=== PATIENT | female | born 1990 | race African-American/Black ===

== ENCOUNTER → 2023-04-01 08:24 | Outpatient (BNVA) | payer MEDICAID, SELFPAY | PROVIDERS: Visit Provider Physician Assistant Surgical ==

== ENCOUNTER 2023-04-06 08:02 | Outpatient (AMB) | payer OTHER, SELFPAY ==
[2023-04-06 08:07] VITALS: BMI 35.1
--- NOTE | 2023-04-06 08:07 | A.OFFVIS_ITS ---
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* HPI Details Start time: 8.00am, End time: 9.10am ?I spent 60 minutes speaking with the patient on the phone plus an additional 10 minutes reviewing and updating records for a total of 70 minutes HPI Comments History of Present Illness Details Previous weight loss efforts: RD, self diets Wakes up: 7am, Sleeps: 11pm Breakfast: 9am (soup, eggs, bread) Lunch: 1pm (meat, rice, fish, pasta) Dinner: 7pm (same as lunch) Snacks: 11am (fruits like bananas) Exercise: none Fluids: Coffee 3 cups/day (sugar), tea/soda/juice/ETOH: none PFSH Medical History (Updated 04/06/23 @ 08:16 by Santy Soto MD) Hyperlipidemia Hypertension Non-insulin dependent type 2 diabetes mellitus Obesity Surgical History (Updated 04/01/23 @ 08:45 by Lila Anderson CMA) No history of previous surgery Family History (Updated 04/01/23 @ 08:46 by Lila Anderson CMA) Mother Diabetes Hypertension High cholesterol Daughter No problems noted. Daughter No problems noted. Social History (Updated 04/01/23 @ 08:45 by Lila Anderson CMA) Alcohol intake: current Alcohol intake frequency: holidays/special occasions only Patient Tobacco Use Status: Never used Tobacco Assessment & Plan Assessment & Plan (1) Obesity: Code(s): E66.9 - Obesity, unspecified Qualifiers: Obesity type: due to excess calories Obesity classification: adult class 2 (BMI 35 - 39.9) Serious obesity comorbidity presence: with serious comorbidity Body mass index: BMI 35.0-35.9 Qualified Code(s): E66.01 - Morbid (severe) obesity due to excess calories; Z68.35 - Body mass index [BMI] 35.0- 35.9, adult Plan: 1.? Plan for lap sleeve gastrectomy. If diaphragmatic or ventral hernias are present at time of surgery, these will be repaired laparoscopically as well. Risks and complications were discussed in detail including possible conversion to an open procedure, anastomotic leak, bleeding requiring transfusion, small bowel obstruction, , DVT and pulmonary embolism, cardiac, or pulmonary complications, as camera repair technician complications such as anastomotic ulcer, insufficient weight loss and vitamin deficiencies. I emphasized the importance of close follow-up, adherence to instructions and good communication. 2. Nutritional counseling. Start with 2 plant-based organic Pure protein (buy at [employer], [employer], [employer], [facility]) shakes (1/2 scoop in 8oz low fat unsweetened almond milk each) at 8am-10am and 11am-1pm, 1 protein bar (Zone Perfect protein bars, buy at [employer], ?[employer], [facility], or [employer]) at 2pm-4pm, 1/2 bar at 5-6pm, dinner at 7pm (10 forks of protein and 10 forks of salad/vegetables) , 1/2 bar at 9-10pm and one more protein bar after dinner at 11pm-1am. 2. Nutritional counseling. Start with 2 CELEBRATE REBUILD protein (buy at hospital[facility]) shakes (HALF scoop EACH in 8oz low fat unsweetened almond milk each) at 8am-10am and 11am-1pm, 1 protein bar (CELEBRATE protein bars, buy at hospital's [facility]) at 2pm-4pm, dinner at 5pm (8 forks of protein and 8 forks of salad/vegetables) AND one more protein bar after dinner at 7pm-9pm AND another HALF protein bar at 10pm-11pm So you do 2 protein shakes, 2.5 protein bars and one meal per day. Meal to include lean meat (beef, fish, pork, turkey, chicken), or australian yogurt, or egg whites, or beans with a salad with olive oil and fruits (berries, pears, apples, kiwi). Avoid salt, breads, potatoes, rice, pasta, desserts. 3. Each shake would be drunk slowly, like coffee in a period of 2 hours. May add your coffee into your shakes, if flavors match. 4. Cut each bar in 4 pieces and eat each piece in 30min ?to make each bar last 2 hours. 5. I emphasized the importance of measuring accurately the food portion and measure it when serving the food in plate 6. The meal portions include 8 full-size forks of meat and 8 full-size forks of salad. You always eat the meat portion but you can replace up to 4 forks for salad/vegetables with rice, potatoes or pasta, or a fruit ?if you like. The less you do it the better weight loss will be. 7. One full-size fork is what it can be scooped on the fork without falling aside and not what can be bit with the fork. Use regular forks like those you find in a typical restaurant. 8.? Please send me weight measurements as soon as possible and then once a week. Always include your diet and exercise plan. 9. Start walking outside daily, tracking calories with a goal of 300 calories per day, daily. Goal is to burn 2000 calories per week on exercise, which means either 300 calories daily, or 400 calories 5 days per week, or 500 calories 4 days per week, or 650 calories 3 days per week. 10. The best choice would be to purchase a stationary bike, elliptical or treadmill at home that can track calories. Let me know if you do so I can give you an exercise plan. 11.?It is important of avoiding and for at least 18 months postoperatively and has been discussed at the infosession. 12. Goal is to lose at least 1.5-2lbs per week 13. Goal to lose 10% of your weight before surgery, which is about 20lbs. Ultimate weight goal: 178lbs before surgery 14. Please follow the diet plan exactly without any change. If you don't like something about the plan or you feel hungry you need to communicate with me so I can help you revise the plan. You should not change the plan yourself. Orders: Orders Insulin Today E11.9 - Type 2 diabetes mellitus without complications, E66.9 - Obesity, unspecified, E78.5 - Hyperlipidemia, unspecified, I10 - Essential (primary) hypertension, Z68.35 - Body mass index [BMI] 35.0-35.9, adult Vitamin B12 and Folate Today E11.9 - Type 2 diabetes mellitus without complications, E66.9 - Obesity, unspecified, E78.5 - Hyperlipidemia, unspecified, I10 - Essential (primary) hypertension, Z68.35 - Body mass index [BMI] 35.0-35.9, adult Ferritin Today E11.9 - Type 2 diabetes mellitus without complications, E66.9 - Obesity, unspecified, E78.5 - Hyperlipidemia, unspecified, I10 - Essential (primary) hypertension, Z68.35 - Body mass index [BMI] 35.0-35.9, adult US abdomen comp w elastography Today E11.9 - Type 2 diabetes mellitus without complications, E66.9 - Obesity, unspecified, E78.5 - Hyperlipidemia, unspecified, I10 - Essential (primary) hypertension, Z68.35 - Body mass index [BMI] 35.0-35.9, adult XR chest 2V Today E11.9 - Type 2 diabetes mellitus without complications, E66.9 - Obesity, unspecified, E78.5 - Hyperlipidemia, unspecified, I10 - Essential (primary) hypertension, Z68.35 - Body mass index [BMI] 35.0-35.9, adult FL upper GI w air Today E11.9 - Type 2 diabetes mellitus without complications, E66.9 - Obesity, unspecified, E78.5 - Hyperlipidemia, unspecified, I10 - Essential (primary) hypertension, Z68.35 - Body mass index [BMI] 35.0-35.9, adult Hemoglobin A1c Today E11.9 - Type 2 diabetes mellitus without complications, E66.9 - Obesity, unspecified, E78.5 - Hyperlipidemia, unspecified, I10 - Essential (primary) hypertension, Z68.35 - Body mass index [BMI] 35.0-35.9, adult H Pylori Breath Test Today E11.9 - Type 2 diabetes mellitus without complications, E66.9 - Obesity, unspecified, E78.5 - Hyperlipidemia, unspecified, I10 - Essential (primary) hypertension, Z68.35 - Body mass index [BMI] 35.0-35.9, adult Complete Blood Count Auto Diff Today E11.9 - Type 2 diabetes mellitus without complications, E66.9 - Obesity, unspecified, E78.5 - Hyperlipidemia, unspecified, I10 - Essential (primary) hypertension, Z68.35 - Body mass index [BMI] 35.0-35.9, adult Lipid Panel Today E11.9 - Type 2 diabetes mellitus without complications, E66.9 - Obesity, unspecified, E78.5 - Hyperlipidemia, unspecified, I10 - Essential (primary) hypertension, Z68.35 - Body mass index [BMI] 35.0-35.9, adult IRON PROFILE Today E11.9 - Type 2 diabetes mellitus without complications, E66.9 - Obesity, unspecified, E78.5 - Hyperlipidemia, unspecified, I10 - Essential (primary) hypertension, Z68.35 - Body mass index [BMI] 35.0-35.9, adult Comprehensive Met. Panel Today E11.9 - Type 2 diabetes mellitus without complications, E66.9 - Obesity, unspecified, E78.5 - Hyperlipidemia, unspecified, I10 - Essential (primary) hypertension, Z68.35 - Body mass index [BMI] 35.0-35.9, adult Zinc Today E11.9 - Type 2 diabetes mellitus without complications, E66.9 - Obesity, unspecified, E78.5 - Hyperlipidemia, unspecified, I10 - Essential (primary) hypertension, Z68.35 - Body mass index [BMI] 35.0-35.9, adult C Reactive Protein Today E11.9 - Type 2 diabetes mellitus without complications, E66.9 - Obesity, unspecified, E78.5 - Hyperlipidemia, unspecified, I10 - Essential (primary) hypertension, Z68.35 - Body mass index [BMI] 35.0-35.9, adult Vitamin B1 Today E11.9 - Type 2 diabetes mellitus without complications, E66.9 - Obesity, unspecified, E78.5 - Hyperlipidemia, unspecified, I10 - Essential (primary) hypertension, Z68.35 - Body mass index [BMI] 35.0-35.9, adult Vitamin A Today E11.9 - Type 2 diabetes mellitus without complications, E66.9 - Obesity, unspecified, E78.5 - Hyperlipidemia, unspecified, I10 - Essential (primary) hypertension, Z68.35 - Body mass index [BMI] 35.0-35.9, adult TSH reflex Free T4 Today E11.9 - Type 2 diabetes mellitus without complications, E66.9 - Obesity, unspecified, E78.5 - Hyperlipidemia, unspecified, I10 - Essential (primary) hypertension, Z68.35 - Body mass index [BMI] 35.0-35.9, adult Vitamin D 25-OH Total Today E11.9 - Type 2 diabetes mellitus without complications, E66.9 - Obesity, unspecified, E78.5 - Hyperlipidemia, unspecified, I10 - Essential (primary) hypertension, Z68.35 - Body mass index [BMI] 35.0-35.9, adult ECG 12 lead EKG Today E11.9 - Type 2 diabetes mellitus without complications, E66.9 - Obesity, unspecified, E78.5 - Hyperlipidemia, unspecified, I10 - Essential (primary) hypertension, Z68.35 - Body mass index [BMI] 35.0-35.9, adult Referrals Behavioral Health Referral E11.9 - Type 2 diabetes mellitus without complications, E66.9 - Obesity, unspecified, E78.5 - Hyperlipidemia, unspecified, I10 - Essential (primary) hypertension, Z68.35 - Body mass index [BMI] 35.0-35.9, adult Nutrition/Dietitian Referral E11.9 - Type 2 diabetes mellitus without complications, E66.9 - Obesity, unspecified, E78.5 - Hyperlipidemia, unspecified, I10 - Essential (primary) hypertension, Z68.35 - Body mass index [BMI] 35.0-35.9, adult Telehealth Telehealth Location of provider rendering services: practice address Location of patient: address on file Patient Identification confirmed using: Name, : Yes Telehealth method: voice only Patient verbally consented to treatment: Yes Patient verbally consented to billing insurance company: Yes Patient informed of any privacy concerns related to visit: Yes Minutes spent on Phone/Video with Pt.: 70 Coding Level of Care Code Tele New Pt Level 5 (91682) Diagnoses Class 2 severe obesity due to excess calories with serious comorbidity and body mass index (BMI) of 35.0 to 35.9 in adult E66.01; Z68.35 Obesity type: due to excess calories Obesity classification: adult class 2 (BMI 35 - 39.9) Serious obesity comorbidity presence: with serious comorbidity Body mass index: BMI 35.0-35.9 Time Spent (min) 70 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
== END 2023-04-06 09:11 | disposition home or self-care (01) ==
LOC: HO.HBS 08:02
PROVIDERS: Visit Provider Surgery
DX: E66.01 Morbid (severe) obesity due to excess calories (principal); Z68.35 Body mass index [BMI] 35.0-35.9, adult
CPT/HCPCS: 99205

== ENCOUNTER → 2023-04-06 08:02 | Outpatient (BNVA) | payer OTHER, SELFPAY | PROVIDERS: Visit Provider Surgery ==

== ENCOUNTER 2023-04-07 08:30 | Outpatient (REF) | payer OTHER, SELFPAY ==
--- NOTE | ~2023-04-07 | XR_ITS ---
EXAMINATION: XR CHEST CLINICAL INFORMATION: Obesity, unspecified COMPARISON: None available. TECHNIQUE: 2 views of the chest were obtained. FINDINGS: No significant abnormality is noted involving the lungs, mediastinum, bony thorax or soft tissues. There is mild enlargement of cardiac silhouette. XR/XR chest 2V IMPRESSION: 1. No acute disease. 2. Mild enlargement of the cardiac silhouette.
--- NOTE | 2023-04-07 08:40 | ECG_ITS ---
Test Reason : OBESITY Blood Pressure : / mmHG Vent. Rate : 081 BPM Atrial Rate : 081 BPM P-R Int : 158 ms QRS Dur : 086 ms QT Int : 362 ms P-R-T Axes : 027 066 059 degrees QTc Int : 420 ms Normal sinus rhythm Nonspecific T wave abnormality Abnormal ECG No previous ECGs available Referred By: Santy Soto Electronically Signed By:GISELLE ROWLAND
[2023-04-07 08:54] LABS: MANUAL DIFF FLAG NO
[2023-04-07 09:46] LABS: Basophils Percent Auto 0.4 % (0-2); Eosinophils Percent Auto 0.8 % (0-4); Hematocrit 37.9 % (37.0-47.0); Hemoglobin 12.1 g/dl (12.0-16.0); Imm Gran Abs Auto 0.01 X10*3/uL (0.00-0.03); Imm Gran Pct Auto 0.2 % (0.0-0.4); Lymphocytes Percent Auto 39.1 % (20-40); Mean Corpuscular HGB Conc 31.9 g/dl (31.0-35.0); Mean Corpuscular Hemoglobin 22.3 pg (27.0-33.0); Mean Corpuscular Volume 69.8 fL (80.0-98.0); Mean Platelet Volume 9.9 fL (9.4-12.3); Monocytes Absolute Auto 0.4 X10*3/uL (0.1-1.2); Monocytes Percent Auto 6.9 % (2-11); Neutrophils Absolute Auto 2.7 x10*3/uL (2.0-8.3); Neutrophils Percent Auto 52.6 % (45-73); Platelet Count 316 X10*3/uL (160-400); Red Blood Count 5.43 X10*6/uL (4.20-5.50); White Blood Count 5.1 X10*3/uL (4.8-10.8)
[2023-04-07 09:53] LABS: Estimated Average Glucose 137 mg/dL; Hemoglobin A1c % 6.4 % (<6.0)
[2023-04-07 10:30] LABS: Alanine Aminotransferase 63 U/L (0-31); Albumin Level 4.4 g/dL (3.5-5.0); Alkaline Phosphatase 82 U/L (39-117); Anion Gap 10 (12-20); Aspartate Amino Transferase 34 U/L (5-31); Bilirubin Total 0.3 mg/dL (0.0-1.0); Blood Urea Nitrogen 10 mg/dL (9-16); C Reactive Protein 0.63 mg/dL (< or = 0.50); Calcium 9.5 mg/dL (8.4-10.2); Carbon Dioxide 26 mmol/L (22-29); Chloride 106 mmol/L (96-108); Cholesterol 186 mg/dL (<200); Estimated Glomerular Filt Rate > 60; Glucose Random 120 mg/dL (60-115); HDL Cholesterol 45 mg/dL (>40); Iron 64 mcg/dL (30-160); LDL Cholesterol Calculated 104 mg/dL (<100); Percent Iron Saturation 20 % (15-50); Potassium 4.3 mmol/L (3.3-5.1); Sodium 138 mmol/L (135-145); Total Iron Binding Capacity 326 mcg/dL (228-428); Total Protein 8.1 g/dL (6.5-8.0); Triglycerides 185 mg/dL (<150); Unsaturated Iron Binding 262 ug/dL
[2023-04-07 10:47] LABS: Ferritin 72 ng/mL (10-122); Insulin 13 uU/mL (2-29); TSH reflex Free T4 1.01 uIU/mL (0.32-4.0)
[2023-04-07 11:17] LABS: Folate 11.1 ng/mL (> or = 4.0); Vitamin B12 484 pg/mL (200-900)
[2023-04-09 12:33] LABS: Zinc 87 mcg/dL (60-130)
[2023-04-11 01:53] LABS: Vitamin A 50 mcg/dL (38-98)
[2023-04-12 14:54] LABS: Vitamin B1 9 nmol/L (8-30)
== END 2023-04-07 08:31 | disposition home or self-care (01) ==
LOC: HO.XRAY 08:30
PROVIDERS: Visit Provider Surgery
DX: E66.9 Obesity, unspecified (principal); Z68.35 Body mass index [BMI] 35.0-35.9, adult; E11.9 Type 2 diabetes mellitus without complications; E78.5 Hyperlipidemia, unspecified; I10 Essential (primary) hypertension
CPT/HCPCS: 36415; 71046; 80053; 80061; 82306; 82607; 82728; 82746; 83036; 83525; 83540; 84425; 84443; 84590; 84630; 85025; 86140; 93005

== ENCOUNTER → 2023-04-07 08:40 | Outpatient (BNV) | payer OTHER, SELFPAY | PROVIDERS: Visit Provider Internal Medicine | DX: E66.9 Obesity, unspecified (principal); R94.31 Abnormal electrocardiogram [ECG] [EKG] | CPT/HCPCS: 93010 ==

== ENCOUNTER → 2023-04-20 09:35 | Outpatient (REF) | payer OTHER, SELFPAY ==
--- NOTE | 2023-04-20 09:38 | CA_ITS ---
Acquisition Time: 2023-04-20 09:45:35 Total Exercise Time: 00:07:05 Test Indications: Abnormal ECG Medications: METFORMIN Protocol: RENEE Max HR: 162 BPM 87% of Pred: 186 BPM Max BP: 142/070 mmHG Max Work Load: 8.6 METS Exercise stress test exercise 7 min 5 sec of Renee protocol achieving 87% MPHR 8.4 METs, without anginal symptoms, without arrhythmias, with normotensive response to exercise, without EKG chnages. Test reviewed with Dr. Jones Referred By: Santy Soto Overread By: Charo Mcghee
== END ==
LOC: HO.CARD 09:35
PROVIDERS: Visit Provider Surgery
DX: R94.31 Abnormal electrocardiogram [ECG] [EKG] (principal); I51.7 Cardiomegaly
CPT/HCPCS: 93017

== ENCOUNTER → 2023-04-20 09:38 | Outpatient (BNV) | payer OTHER, SELFPAY | PROVIDERS: Visit Provider Nurse Practitioner | DX: R94.31 Abnormal electrocardiogram [ECG] [EKG] (principal); I51.7 Cardiomegaly | CPT/HCPCS: 93016; 93018 ==

== ENCOUNTER 2023-04-21 14:22 | Outpatient (AMB) | payer OTHER, SELFPAY ==
--- NOTE | 2023-04-21 14:15 | A.OFFVIS_ITS ---
Intake Intake Visit Reasons: (TV) Initial Nutrition [facility] Plywood Layup Line Core Feeder Required: Yes Plywood Layup Line Core Feeder Name: [email or web address] [id number] Information Interpreted: non-clinical & clinical Allergies No Known Allergies Allergy (Verified 04/06/23 08:11) HPI Nutrition Presentation Reason for consult elevated BMI Diet Assmnt Details pt states she is following Dr. Soto nutrition plan, no concerns or questions today. She reports she likes the plan. Dinner meals has chicken or shrimp or fish with vegetables . She likes this. [facility] online classes: none Dietary counseling reduction Diagnosis Nutrition problem #1 overweight/obesity As related to (etiology) #1 excess energy intake and physical inactivity As evidenced by (sign/symptom) #1 high BMI Monitoring/Goals Nutrition problem monitoring total energy intake, level of knowledge/skill, total PRO intake, total CHO intake and weight Most Recent Diabetes Results: Cholesterol 186 mg/dL (<200) 04/07/23 HDL Cholesterol 45 mg/dL (>40) 04/07/23 Triglycerides 185 mg/dL (<150) H 04/07/23 Creatinine 0.65 mg/dL (0.5-1.4) 04/07/23 Blood Urea Nitrogen 10 mg/dL (9-16) 04/07/23 Sodium 138 mmol/L (135-145) 04/07/23 Potassium 4.3 mmol/L (3.3-5.1) 04/07/23 Chloride 106 mmol/L (96-108) 04/07/23 Carbon Dioxide 26 mmol/L (22-29) 04/07/23 Calcium 9.5 mg/dL (8.4-10.2) 04/07/23 AST 34 U/L (5-31) H 04/07/23 ALT 63 U/L (0-31) H 04/07/23 Total Protein 8.1 g/dL (6.5-8.0) H 04/07/23 Albumin 4.4 g/dL (3.5-5.0) 04/07/23 [facility] Medical History (Updated 04/11/23 @ 19:58 by Santy Soto MD) Cardiomegaly Hyperlipidemia Hypertension Non-insulin dependent type 2 diabetes mellitus Obesity Surgical History (Updated 04/01/23 @ 08:45 by Lila Anderson CMA) No history of previous surgery Family History (Updated 04/01/23 @ 08:46 by Lila Anderson CMA) Mother Diabetes Hypertension High cholesterol Daughter No problems noted. Daughter No problems noted. Social History (Updated 04/01/23 @ 08:45 by Lila Anderson CMA) Alcohol intake: current Alcohol intake frequency: holidays/special occasions only Patient Tobacco Use Status: Never used Tobacco Assessment & Plan Assessment & Plan (1) BMI 35.0-35.9,adult: Code(s): Z68.35 - Body mass index [BMI] 35.0-35.9, adult Plan Will be seen once she completes the online classes so we can review. follow up 05/18 at 9:30am Telehealth Telehealth Location of provider rendering services: practice address Location of patient: address on file Patient Identification confirmed using: Name, : Yes Telehealth method: voice only Patient verbally consented to treatment: Yes Patient verbally consented to billing insurance company: Yes Patient informed of any privacy concerns related to visit: Yes Minutes spent on Phone/Video with Pt.: 25 Coding Level of Care Code Nutr Indiv Intake (62782) Diagnoses BMI 35.0-35.9,adult Z68.35 Time Spent (min) 25
== END 2023-04-21 14:36 | disposition home or self-care (01) ==
LOC: HO.HBS 14:22
PROVIDERS: Visit Provider Dietitian, Registered
DX: Z68.35 Body mass index [BMI] 35.0-35.9, adult (principal)

== ENCOUNTER → 2023-04-21 14:22 | Outpatient (BNVA) | payer OTHER, SELFPAY | PROVIDERS: Visit Provider Dietitian, Registered | DX: E66.9 Obesity, unspecified (principal); Z68.35 Body mass index [BMI] 35.0-35.9, adult | CPT/HCPCS: 97802 ==

== ENCOUNTER 2023-04-27 09:22 | Outpatient (REF) | payer OTHER, SELFPAY ==
--- NOTE | ~2023-04-27 | US_ITS ---
EXAMINATION: US COMPLETE ABDOMEN WITH LIVER ELASTOGRAPHY CLINICAL INFORMATION: Obesity. COMPARISON: None available. TECHNIQUE: Real-time imaging of the abdominal viscera. Noninvasive ultrasound liver fibrosis assessment is performed using Sabrina ElastPQ point quantification shear wave elastography (2D-SWE) with a C5-2 MHz transducer. Multiple elastography samples are obtained. FINDINGS: PANCREAS: Normal. The visualized pancreatic head and body are normal in appearance. The remainder of the pancreas is obscured from visualization by the overlying bowel gas. ABDOMINAL AORTA: The proximal, middle, and distal aortic segments are normal in caliber. INFERIOR VENA CAVA: Visualized portions are normal. LIVER: The liver shows normal contour and generally increased echogenicity, with pericholecystic sparing. No focal lesion or intrahepatic biliary duct dilatation. The right lobe measures 20.0 cm in length. The left lobe measures 9.6 cm in length. Portal flow is towards the liver (hepatopetal). Shear wave liver elastography median stiffness is 1.17 m/s (reference: normal median stiffness is 1.3 m/s or less). IQR/median stiffness to assess sampling precision is 0.09 (reference: good quality data set is IQR/median stiffness of 0.15 or less). GALLBLADDER: There is cholelithiasis, without gallbladder sludge, polyps, wall thickening or pericholecystic fluid. COMMON BILE DUCT: Normal in caliber measuring 0.5 cm in diameter. RIGHT KIDNEY: Normal. No hydronephrosis. No renal calculi or focal parenchymal lesions. The kidney measures 10.1 cm in maximum dimension. LEFT KIDNEY: Normal. No hydronephrosis. No renal calculi or focal parenchymal lesions. The kidney measures 10.8 cm in maximum dimension. SPLEEN: Normal. The spleen measures 11.0 cm in maximum dimension. FREE FLUID: None. US/US abdomen comp w elastography IMPRESSION: 1. There is hepatomegaly. 2. There is generalized increase in hepatic echotexture, consistent with fatty infiltration or hepatocellular disease. Please correlate clinically. Characteristic pericholecystic sparing favors fatty infiltration. No focal hepatic mass or intrahepatic biliary dilatation is seen. 3. Liver elastography: Measurements are consistent with a high probability of normal liver stiffness. 4. There is cholelithiasis. REFERENCE: Society of Radiologists in Ultrasound Liver Stiffness Thresholds (2020): LIVER STIFFNESS THRESHOLDS: *Liver Stiffness equal or less than 1.3 m/s: High probability of being normal. *Liver Stiffness less than 1.7 m/s: In the absence of other known clinical signs, rules out compensated advanced chronic liver disease. *Liver Stiffness 1.7-2.1 m/s: Suggestive of compensated advanced chronic liver disease but need further test for confirmation. *Liver Stiffness over 2.1 m/s: Rules in compensated advanced chronic liver disease. *Liver Stiffness over 2.4 m/s: Suggestive of clinically significant portal hypertension. QUALITY OF DATA SET: *IQR/Median value equal or less than 0.15 implies a quality data set. *IQR/Median value over 0.15 implies a poor quality data set. SIGNIFICANT CHANGE FROM PRIOR EXAM: Significant change if liver stiffness measurement is 10% or greater from prior exam. OTHER CONSIDERATIONS: The stage of liver fibrosis may be overestimated in the setting of acute hepatitis, liver inflammation, elevated liver function tests, hepatic vascular congestion, obstructive cholestasis, non-fasting state, and infiltrative diseases such as amyloidosis and lymphoma. In some patients with NAFLD, the liver stiffness thresholds for compensated advanced chronic liver disease may be lower. In causes other than viral hepatitis and NAFLD, liver stiffness thresholds are not well established.
== END 2023-04-27 09:23 | disposition home or self-care (01) ==
LOC: HO.US 09:22
PROVIDERS: Visit Provider Surgery
DX: E66.9 Obesity, unspecified (principal); Z68.35 Body mass index [BMI] 35.0-35.9, adult; E11.9 Type 2 diabetes mellitus without complications; E78.5 Hyperlipidemia, unspecified; I10 Essential (primary) hypertension
CPT/HCPCS: 76700; 76981

== ENCOUNTER 2023-04-30 08:04 | Outpatient (AMB) | payer OTHER, SELFPAY ==
--- NOTE | 2023-04-30 08:22 | A.OFFVIS_ITS ---
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* HPI Details Start time: 8.16am, End time: 8.36am ?I spent 15 minutes speaking with the patient on the phone plus an additional 5 minutes reviewing and updating records for a total of 20 minutes HPI Comments History of Present Illness Details Overall weight loss: 9.6lbs, or 4.6% TBWL Is doing 2 Celebrate Rebuild protein shakes (1/2 scoop in almond milk), 2 Celebrate protein bars and one meal (8 forks of protein and 8 forks of salad or vegetables) Exercise: gym x3/wk doing treadmill for 200 calories [facility] Medical History (Updated 04/30/23 @ 08:33 by Santy Soto MD) Cardiomegaly Hyperlipidemia Hypertension Non-insulin dependent type 2 diabetes mellitus Obesity Surgical History (Updated 04/01/23 @ 08:45 by Lila Anderson CMA) No history of previous surgery Family History (Updated 04/01/23 @ 08:46 by Lila Anderson CMA) Mother Diabetes Hypertension High cholesterol Daughter No problems noted. Daughter No problems noted. Social History (Updated 04/01/23 @ 08:45 by Lila Anderson CMA) Alcohol intake: current Alcohol intake frequency: holidays/special occasions only Patient Tobacco Use Status: Never used Tobacco Physical Exam Vital Signs: BMI result Body Mass Index 33.3 Assessment & Plan Assessment & Plan (1) Morbid obesity: Code(s): E66.01 - Morbid (severe) obesity due to excess calories Plan: 1. Continue same nutritional plan of 2 Celebrate Rebuild protein shakes (1/2 scoop in almond milk), 2 Celebrate protein bars and one meal (8 forks of protein and 8 forks of salad or vegetables) 2. Exercise: please increase gym to at least 5 days per week doing treadmill for at least 400 calories per work-out. Goal is to burn 2000 calories per week 3. Continue to send me weight measurements weekly on Tuesdays Telehealth Telehealth Location of provider rendering services: practice address Location of patient: address on file Patient Identification confirmed using: Name, : Yes Telehealth method: voice only Patient verbally consented to treatment: Yes Patient verbally consented to billing insurance company: Yes Patient informed of any privacy concerns related to visit: Yes Minutes spent on Phone/Video with Pt.: 20 Coding Level of Care Code Tele Est Pt Level 3 (89858) Diagnoses Morbid obesity E66.01 Time Spent (min) 20
[2023-04-30 08:23] VITALS: BMI 33.3
== END 2023-04-30 08:35 | disposition home or self-care (01) ==
LOC: HO.HBS 08:06
PROVIDERS: Visit Provider Surgery
DX: E66.01 Morbid (severe) obesity due to excess calories (principal)
CPT/HCPCS: 99213

== ENCOUNTER → 2023-04-30 08:04 | Outpatient (BNVA) | payer OTHER, SELFPAY | PROVIDERS: Visit Provider Surgery ==

== ENCOUNTER 2023-05-05 10:33 | Day surgery (SDC) | payer OTHER, SELFPAY ==
--- NOTE | 2023-05-03 12:21 | HO.ANESPROP2 ---
Documented by User: Pearl Kohler NP 05/03/23 12:24 HPI - Anesthesia Eval Consult details Narrative: 33yo F for Upper Endoscopy PMFSH Active Problems Active Problems: All Active Problems (Updated 04/30/23 @ 08:33 by Santy Soto MD) Morbid obesity (Acute) Cardiomegaly (Acute) Abnormal EKG (Acute) Vitamin D deficiency (Acute) Hyperlipidemia (Acute) Hypertension (Acute) Non-insulin dependent type 2 diabetes mellitus (Acute) BMI 35.0-35.9,adult (Acute) Obesity (Acute) Past Medical History Medical History Cardiomegaly Hyperlipidemia Hypertension Non-insulin dependent type 2 diabetes mellitus Obesity Family History Family History Mother Diabetes Hypertension High cholesterol Daughter No problems noted. Daughter No problems noted. Surgical History Surgical History Hx of dilation and curettage Social History Social History Alcohol intake: current Alcohol intake frequency: holidays/special occasions only Patient Tobacco Use Status: Never used Tobacco Meds Allergies Allergy/AdvReac Type Severity Reaction Status Date / Time No Known Allergies Allergy Verified 05/05/23 12:13 Home Medications Medication Instructions Recorded Confirmed Last Taken Type metformin 500 mg tablet 500 mg PO BID 04/01/23 05/05/23 Unknown History Exam Pertinent Lab Results Pertinent Lab Results: Laboratory Tests 04/07/23 08:48 WBC 5.1 Hgb 12.1 Hct 37.9 Plt Count 316 Sodium 138 Potassium 4.3 Chloride 106 Carbon Dioxide 26 BUN 10 Creatinine 0.65 Narrative Narrative: EKG 04/2023 Vent. Rate : 081 BPM Atrial Rate : 081 BPM P-R Int : 158 ms QRS Dur : 086 ms QT Int : 362 ms P-R-T Axes : 027 066 059 degrees QTc Int : 420 ms Normal sinus rhythm Nonspecific T wave abnormality Abnormal ECG No previous ECGs available Exercise stress 04/2023 Protocol: DOMINGO Max HR: 162 BPM 87% of Pred: 186 BPM Max BP: 142/070 mmHG Max Work Load: 8.6 METS Exercise stress test exercise 7 min 5 sec of Domingo protocol achieving 87% MPHR 8.4 METs, without anginal symptoms, without arrhythmias, with normotensive response to exercise, without EKG chnages. Test reviewed with Dr. Robert TRUJILLO chest 2V 04/2023 IMPRESSION: 1. No acute disease. 2. Mild enlargement of the cardiac silhouette. Assessment and Plan Assessment Anesthesia Assessment: Chart Reviewed Documented by User: Mulu Fairbanks MD 05/05/23 14:52 [facility] Active Problems Active Problems: All Active Problems (Updated 05/05/23 @ 12:46 by Mulu Fairbanks MD) Morbid obesity (Acute) Cardiomegaly (Acute) Abnormal EKG (Acute) Vitamin D deficiency (Acute) Hyperlipidemia (Acute) Hypertension (Acute) Non-insulin dependent type 2 diabetes mellitus (Acute) BMI 35.0-35.9,adult (Acute) Obesity (Acute) Denies NABIL Past Medical History Medical History Cardiomegaly Hyperlipidemia Hypertension Non-insulin dependent type 2 diabetes mellitus Obesity Family History Family History Mother Diabetes Hypertension High cholesterol Daughter No problems noted. Daughter No problems noted. Family history of problems with anesthesia: No Surgical History Surgical History Hx of dilation and curettage History of Problems with Anesthesia: No Social History Social History Alcohol intake: current Alcohol intake frequency: holidays/special occasions only Patient Tobacco Use Status: Never used Tobacco Meds Allergies Allergy/AdvReac Type Severity Reaction Status Date / Time No Known Allergies Allergy Verified 05/05/23 12:13 Home Medications Medication Instructions Recorded Confirmed Last Taken Type metformin 500 mg tablet 500 mg PO BID 04/01/23 05/05/23 Unknown History Exam Height,Weight and Vital Signs: Height 5 ft 3 in Weight 83.915 kg Vital Signs Temp Pulse Resp BP Pulse Ox O2 Del Method 05/05/23 12:40 98.1 F 68 16 145/85 H 100 Room Air Pertinent Lab Results Pertinent Lab Results: Laboratory Tests 04/07/23 08:48 WBC 5.1 Hgb 12.1 Hct 37.9 Plt Count 316 Sodium 138 Potassium 4.3 Chloride 106 Carbon Dioxide 26 BUN 10 Creatinine 0.65 Lab Results 05/05/23 Range/Units 12:15 Urine Test NEGATIVE (NEGATIVE) Laboratory Results - last 24 hr 05/05/23 05/05/23 12:15 13:10 POC Glucose 102 Urine Test NEGATIVE Airway Mallampati Class: II TM Dist: >3cm Neck ROM: Full Loose/Missing/Broken Teeth: No (Denies broken, loose, missing teeth) Heart: RRR Lungs: CTAB Assessment and Plan Assessment Anesthesia Assessment: Anesthesia Plan Discussed and Chart Reviewed Final Anesthetic Review Family History of Problems with Anesthesia: No History of Problems with Anesthesia: No NPO: Yes ASA Class: III Final Preanesthetic Review: No Changes in Pt Med Stat, Meds/Allgs Chart Reviewed, Consent Obtained/Reviewed and Anes Risks/Benef Reviewed Patient Risk: Intermediate Procedure Risk: Low Assessment/Block/Sedation in SS: Assess/Block/Sedation-SS Anesthetic Plan Anesthetic Plan: GA, MAC: and TIVA Disposition: Standard PACU
[2023-05-05 12:17] VITALS: BMI 32.8
--- NOTE | 2023-05-05 12:23 | MHC.SHP ---
Pre-Procedural Eval Section A - 24 Hr Update-Section A only Date of Service: 05/05/23 The patient is an INPATIENT: No The patient has been examined within 24 hours of the surgical procedure. The History & Physical has been completed within 30 days and I have reviewed it.: Yes Section B - Complete if H&P > 30 days Chief Complaint: Morbid (severe) obesity due to excess calories Relevant Family History (Specify if Yes): No Relevant Social History: None Present Medications: None Medical History: No relevant PMH History of Previous Operations: No relevant previous surgery Allergies: Allergies Allergy/AdvReac Type Severity Reaction Status Date / Time No Known Allergies Allergy Verified 05/05/23 12:13 Review of Systems Sugical H&P ROS: Negative: Constitution, Cardiovascular, Respiratory, Neurological, Psychiatric, Hem-Onc, Allergic/Immunologic, Gastrointestinal, Genitourinary, Musculoskeletal, Integumentary, Endocrine and Eyes/Ears/Nose/Throat Exam Surgical H&P Exam: Normal: HEENT, Normal: Heart, Normal: Lungs, Normal: Extremities, Normal: Abdomen, Normal: Skin and Normal: Neurological Plan Diagnosis/Plan: Unchanged (EGD to assess etiology of GERD. Risks of bleeding and perforation were discussed with the patient and she is in agreement with the plan.) I have reviewed the history and physical and performed a pertinent physical examination on my patient. No changes have occurred unless specified. Time Spent With Patient Time: Total time managing care of this patient today ____ minutes.
--- NOTE | 2023-05-05 12:24 | PM.OP ---
Brief Operative Note Date of Service: 05/05/23 Pre-op diagnosis: Anemia Post-op diagnosis: same (Esophagitis II) Procedure: PROCEDURE DATE: 05/05/2023 PREOPERATIVE DIAGNOSIS: Anemia POSTOPERATIVE DIAGNOSIS: ?Same as above. 1) esophagitis II PROCEDURE: [id number]-rviqhaabscis with biopsies Surgeon: ?Fletcher Soto M.D.. Ph.D. University Tutor: None ? Anesthesia: IV sedation Estimated blood loss: ?Minimal FINDINGS AND PROCEDURE: ? OPERATIVE INDICATIONS: ?The patient is a 33 year old female known to me who is interested in bariatric surgery. The patient has mild anemia on blood work. Based on this information I recommended an upper endoscopy to evaluate the patient's symptoms. Risks and complications of the surgery were discussed with the patient in advance particularly the possibility of perforation or bleeding that may require surgical intervention. The patient understood the risks and was in agreement with the plan. ? PROCEDURE: After informed consent was obtained by the patient, the patient was ?transferred to the Operating Room and was placed in the supine position.? After successful induction of IV sedation, a mouth block was inserted and the patient was placed in the left lateral decubitus position. An upper endoscopy was performed next, the oropharynx and esophagus appeared within the normal limits. There was no hiatal hernia. The z-line was irregular with tongues of gastric mucosa protruding into the esophagus in 25-50% circumference. Two biopsies were obtained from the distal esophagus 2-3 cm proximal to the GE junction and two additional biopsies from the GE junction. The stomach was entered and it appeared to be of normal size. There was no gastritis at distal antrum. There was no stricture or ulcer. A biopsy was obtained from the distal antrum and the gastric fundus. No significant bleeding was noted from any of the biopsy sites. The scope was then advanced into the duodenum which appeared to be normal as well. At that point the duodenum ?and the stomach were decompressed and the scope was withdrawn from the patient's mouth. The patient extubated and was transferred in stable condition to the Recovery Room for further care. I was present and performed all steps of the procedure. There were no residents to assist with this case. Fletcher Soto M.D., Ph.D. Surgeon: Santy Soto MD Anesthesia: MAC Was an University Tutor used for this Procedure?: No Estimated blood loss (mL): 0 IV fluids (mL): 400 Urine output (mL): 0 (No [place] to record output) Pathology: other (1) antrum x1, 2) gastric fundus x1, 3) GE junction x2, 4) distal esophagus x2) Condition: stable Disposition: PACU
[2023-05-05 12:33] LABS: UPreg QC Valid YES; Urine Pregnancy NEGATIVE (NEGATIVE)
[2023-05-05 12:40] VITALS: BP 145/85; PULSE 68; RESP 16; TEMP 36.7; O2SAT 100
[2023-05-05 13:18] LABS: Glucose, Whole Blood 102 mg/dL (60-115)
[2023-05-05 13:40] VITALS: BP 110/62; PULSE 81; RESP 16; TEMP 36.8; O2SAT 99
[2023-05-05 13:55] VITALS: BP 129/79; PULSE 87; RESP 14; O2SAT 98
[2023-05-05 14:10] VITALS: BP 124/81; PULSE 75; RESP 16; TEMP 36.2; O2SAT 99
== END 2023-05-05 14:11 | disposition home or self-care (01) ==
PROVIDERS: Nurse Practitioner; Visit Provider Surgery
PROC: 0DJ08ZZ Inspection of Upper Intestinal Tract, Via Natural or Artificial Opening Endoscopic (ICD-10-PCS; CPT 43235; principal; 2023-05-05 12:40)
DX: D64.9 Anemia, unspecified (principal); K20.80 Other esophagitis without bleeding; K22.89 Other specified disease of esophagus; E66.01 Morbid (severe) obesity due to excess calories; Z68.33 Body mass index [BMI] 33.0-33.9, adult; I10 Essential (primary) hypertension; I51.7 Cardiomegaly; E78.5 Hyperlipidemia, unspecified; E11.9 Type 2 diabetes mellitus without complications; Z79.84 Long term (current) use of oral hypoglycemic drugs; Z79.899 Other long term (current) drug therapy
CPT/HCPCS: 43239; 81025; 82947; 88305; 88313; 88342; J2250; J2704

== ENCOUNTER → 2023-05-05 10:33 | Outpatient (BNV) | payer OTHER, SELFPAY | PROVIDERS: Visit Provider Surgery | DX: D64.9 Anemia, unspecified (principal); K20.90 Esophagitis, unspecified without bleeding | CPT/HCPCS: 43239 ==

== ENCOUNTER → 2023-05-06 09:38 | Outpatient (REF) | payer OTHER, SELFPAY ==
--- NOTE | 2023-05-06 09:42 | CA_ITS ---
Transthoracic Echocardiogram Patient (Last, First, Middle): Liudmila Triana, Gender: Female Date of : 1990 Age: 33 Procedure Date: 05/06/2023 Procedure Type: Transthoracic Echocardiogram Location: OP Height: 160.02 cm Weight: 84.37 kg BSA: 1.88 m2 Heart Rate: 73 bpm BP: 115 / 75 mmHg Financial Planning Advisor: ROMEL Matta MD: Santy Soto MD Card Reader: Royce Jones MD Symptoms: R94.31 - Abnormal electrocardiogram [ECG] [EKG] Study Quality: Fair w/Contrast ECG Rhythm: Sinus Conclusions: - Essentially normal study Findings Procedure Information Contrast agent, definity, is being given per protocol without apparent complications. Left Ventricle Normal left ventricular size, thickness, and systolic function. The visually estimated ejection fraction is between 65-70%. Spectral Doppler is indicative of a normal filling pattern. Right Ventricle Normal right ventricular cavity size and systolic function. Atria Both atria are normal in size. Interatrial shunt cannot be excluded. Aortic Valve Normal aortic valve structure and function. There is no aortic valve stenosis. There is no aortic valve regurgitation. Mitral Valve Normal mitral valve structure and function. There is mild mitral valve regurgitation. There is no mitral valve stenosis. Pulmonic Valve The pulmonic valve is likely normal. Tricuspid Valve Normal tricuspid valve structure. There is trace tricuspid valve regurgitation. The right ventricular systolic pressure is normal. The right ventricular systolic pressure is 11 mmHg. Normal right atrial pressure. There is no evidence of pulmonary hypertension. Great Vessels The pulmonary artery was not well visualized. There is no dilatation of the ascending aorta measuring 2.90 cm. Venous The inferior vena cava is normal in size and collapses greater than 50% with inspiration. Pericardium/Pleural There is no evidence of pericardial effusion. Prior Study Comparison No prior study available for comparison. Measurements 2D Linear Measurements IVSd: 1.03 0.6-0.9/0.6-1.0 cm LVIDd: 4.94 3.9-5.3/4.2-5.9 cm LVIDd Index: 2.63 2.4-3.2/2.2-3.1 cm/m2 LVIDs: 2.94 2.0-3.6 cm LVPWd: 1.07 0.7-1.1 cm LA Diam: 3.60 2.7-3.8/3.0-4.0 cm LAIDs Index: 1.91 1.5-2.3 cm/m2 LV Mass: 237.49 67-162/88-224 g LV Mass Index: 126.33 43-95/49-115 g/m2 LVOT Diam: 2.00 3.0+(-)1.3 cm 2D Systolic Function EF 4C: 64.10 >55% EF 2C: 71.10 >55% EF BiP: 68.10 >55% Mitral Valve MV Pk E: 0.91 MV PK A: 0.85 MV Decel Time: 168.00 E/A: 1.10 E'Lateral: 8.27 E'Medial: 8.16 E/E' Med: 11.10 E/E' Lat: 11.00 PHT: 49.00 MVA PHT: 4.49 Decel Dauphin: 5.41 Aortic Valve AoV Pk Devan: 1.36 AoV Mn Devan: 1.04 AoV VTI: 0.28 AoV Pk Grad: 7.00 Aov Mn Grad: 5.00 TARAH Cont.VTI: 2.44 LVOT LVOT Pk Devan: 1.08 LVOT Mn Devan: 0.77 LVOT VTI: 0.22 LVOT Pk Grad: 5.00 LVOT Mn Grad: 3.00 LVOT Diam: 2.00 LVOT Area: 3.14 Diastolic Function MV Pk E: 0.91 MV Pk A: 0.85 E/A: 1.10 E'Medial: 8.16 E/E' Med: 11.10 E' Laterial: 8.27 E/E' Lat: 11.00 Right Ventricle TAPSE (mm): 22.20 TVS' Devan: 14.80 Tricuspid Valve TR Pk Devan: 1.42 TR Pk Grad: 8.00 RA Press: 3.00 RVSP: 11.00 Great Vessels Aorta Sinus of Valsalva: 2.90 2.0-3.5 cm Ao Asc: 2.90 2.1-3.4 cm Pulmonary Valve PV Pk Devan: 0.81 Peak PV Grad: 3.00 Updated in Other Vendor System with Status of Final Royce Jones MD electronically signed on 05/06/2023 1:42:34 PM with status of Final
== END ==
LOC: HO.CARD 09:38
PROVIDERS: Visit Provider Surgery
DX: R94.31 Abnormal electrocardiogram [ECG] [EKG] (principal); I51.7 Cardiomegaly
CPT/HCPCS: 93306; Q9957

== ENCOUNTER → 2023-05-06 09:42 | Outpatient (BNV) | payer OTHER, SELFPAY | PROVIDERS: Visit Provider Internal Medicine Cardiovascular Disease | DX: I34.0 Nonrheumatic mitral (valve) insufficiency (principal); R94.31 Abnormal electrocardiogram [ECG] [EKG] | CPT/HCPCS: 93306 ==

== ENCOUNTER 2023-05-12 11:42 | Outpatient (AMB) | payer OTHER, SELFPAY ==
--- NOTE | 2023-05-12 11:15 | A.OFFWM_ITS ---
Intake Intake Visit Reasons: VIDEO BH Intake Allergies No Known Allergies Allergy (Verified 05/05/23 12:13) [facility] Medical History Cardiomegaly Hyperlipidemia Hypertension Non-insulin dependent type 2 diabetes mellitus Obesity Surgical History Hx of dilation and curettage Family History Mother Diabetes Hypertension High cholesterol Daughter No problems noted. Daughter No problems noted. Social History Alcohol intake: current Alcohol intake frequency: holidays/special occasions only Patient Tobacco Use Status: Never used Tobacco Behavioral Health Assessment Weight Management Therapy Therapy Notes Details Pt is a 33 years old female, who presents for initial behavioral health assessment as part of surgical weight-loss program. PT reports feeling interested in this program to work in achieving a healthy weight and lifestyle. After her last losing weight has been harder. PT is currently under Dr. Leyva's care, and states she is doing well with meal plan and has started exercising again recently. She is close to meeting initial weight- loss goal before bariatric surgery. PT denied any history of mental health treatment and or past hospitalization/crisis for behavioral health. Denies any safety concerns around SI and/or self-other harm, also there is no history of substance use reported. There is also no evidence for stress/emotional-eating, and scores from BES suggest some risk for binge eating behavior, however these results were scores from her behavior prior starting the program, and now she has made a lot of changes that shows improvement evidenced by weight-loss. PHQ- scores also showed no active symptoms/concerns with depression. Mental status exam is withing normal limits, suggesting person's functioning is not impaired. At this time patient is cleared from the behavioral health standpoint. . Presenting Concerns Referral Source Pt knew about the program from a client who had bariatric surgery. She sees Dr. Carney. Reason for referral Completion of behavioral health assessment as part of the process for weight-loss surgery. Precipitating Event Obesity impacting her health and emotions, as she is not feeling comfortable with her body. Living Situation Current Living Situation Rent At risk of losing current housing? No Satisfied with current living situation? Yes Comments Pt lives with and 2 daughters. Food/Weight/Diet Expectations of change The initial Goal is to lose 10% of her weight before surgery, which is about 20lbs. Ultimate weight goal: 178lbs before surgery. As of today, she has lost 15 lbs. She would like to be at least 130Lbs. History/Relationship with food PT reports she has a good appetite and is not picky, but was noticing she tends to eat more or be hungrier when stressed. In the past, she was skipping meals and not having a meal schedule. Usually skipped breakfast. Lunch was leftovers from the previous day's dinner, and dinner was around 7pm. Meals were style, high in carbs and oils and less veggies and/or protein in every meal than the recommended. History/Relationship with weight 14 years ago she was 135 lbs when moved to the , and slowly gained weight. In the last 5 years, the lowest weight was 173 lbs and the highest 201Lbs. History/Relationship with dieting She was very active with the gym before- , then stopped due to restrictions. Other than that she has not tried any diets or programs for weight loss. Binge Eating Do you frequently eat large amounts of food in short periods of time, not feeling physically hungry? No Do you feel out of control when you eat a large amount of food in a short period of time? No Do you eat large amounts of food rapidly and typically alone? No Night Eating Do you wake up at least once during the night to eat? No If you wake up in the night, do you find that it is necessary to eat something in order to fall back asleep? No Do you have little or no appetite in the morning and feel very hungry in the evening, often overeating between dinner and when you go to bed? Yes Social History Family history and relationship PT is , they have 2 daughters Her has 4 adult children (3 boys and 1 girl). She has 8 siblings, only 1 lives close to her. Most of them still lives in . Parents alive, dad lives in [place] but they're not close, mother is in [facility], they're very close. Parental/Familial flight physician obligations 2 Daughters, they are 10 and 1 y/o. Developmental history and status None reported. Social support , sister, mom. Community support None. Uatsdin/Spirituality None. Cultural/Ethnic information Pt was born and raised in the [place]. [place]oved to the [place] years ago. Korean is primary language. Legal Involvement and History Current or historical involvement with the legal system? None reported. Education Highest grade completed HS. Did some college, 3 terms for Lithuanian as second language. 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 Preferred learning style Verbal and Learn by doing Currently enrolled in educational program? No Interested in further educational program? No Educational Interests/Skills The [employer] industry, she loves her job. 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 ) Wants help to find employment? No Meaningful activities Family activities, audiobooks. Financial Situation Describe current financial situation Comfortable Financial assistance? Food [place] and Other ([facility]) Service Service? No Mental Health and Addiction Treatment Current/Past substance abuse? No Current/Past addictive behavior concerns? No Psychiatric history Never in treatment before. Medical and Physical Health Summary Additional Medical History not covered in history None reported Sexual History concerns None reported Physical exam in the last year? Yes Pain Screening Current pain? No Pain in the last few months? No Medications Is the patient compliant with medications? Yes Does the patient have Moraes Guardian in place? Not applicable Does the patient use complimentary health approaches? No Trauma/Abuse History History of trauma? No Questionnaires PHQ-9 Over the last 2 weeks, how often have you been bothered by any of the following problems? 1. Little interest or pleasure in doing things: not at all 2. Feeling down, depressed, or hopeless: not at all 3. Trouble falling or staying asleep, or sleeping too much: not at all 4. Feeling tired or having little energy: not at all 5. Poor appetite or overeating: several days 6. Feeling bad about yourself - or that you are a failure or have let yourself or your family down: not at all 7. Trouble concentrating on things, such as reading the newspaper or watching television: not at all 8. Moving or speaking so slowly that other people could have noticed. Or the opposite - being so fidgety or restless that you have been moving around a lot more than usual: not at all 9. Thoughts that you would be better off or of hurting yourself in some way: not at all Total score: 1 Depression Screening Interpretation: Negative Depression Screening Done: Yes 62160 - PHQ-9 Billing: Yes (Previous score 11. PT reported at that time she was struggling but now she's in the program and getting support feels hopeful and better overall.) Source: Developed by Drs. Marv Mcgraw, Leda Lucero, Bhargav Gardiner and colleagues, with an educational dorain from [employer]. Binge Eating Scale Group 1 A. I don't feel self-conscious about my wt. or body size when I'm with others. B. I feel concerned about how I look to others, but it normally does not make me fell disappointed with myself C. I do get self-conscious about my appearance and wt. which makes me feel disappointed in myself. D. I feel very self-conscious about my wt. and frequently I feel intense shame and disgust for myself. I try to avoid social contacts because of my self- consciousness. Response Group 1: B Group 2 A. I don't have any difficulty eating slowly in the proper manner. B. Although I seem to gobble down foods, I don't end up feeling stuffed because of eating to much. C. At times, I tend to eat quickly and then, I feel uncomfortably full afterwards. D. I have the habit of bolting down my food, without really chewing it. When this happens I usually feel uncomfortably stuffed because I've eaten to much. Response Group 2: B Group 3 A. I feel capable to control my eating urges when I want to. B. I feel like I have failed to control my eating more than the average person. C. I feel utterly helpless when it comes to feeling in control of my eating urges. D. Because I feel so helpless about controlling my eating I have become very desperate about trying to get control. Response Group 3: B Group 4 A. I don't have the habit of eating when I'm bored. B. I sometimes eat when I'm bored, but often I'm able to get busy and get my mind off food. C. I have a regular habit of eating when I'm bored, but occasionally, I can use some other activity to get my mind off eating. D. I have a strong habit of eating when I'm bored. Nothing seems to help me breath the habit. Response Group 4: B Group 5 A. I'm usually physically hungry when I eat something. B. Occasionally, I eat something on impulse even though I really am not hungry. C. I have the regular habit of eating foods, that I might not really enjoy, to satisfy a hungry feeling even though physically, I don't need the food. D. Although I'm not physically hungry, I get a hungry feeling in my mouth that only seems to be satisfied when I eat a food, like sandwich, that fills my mouth. Sometimes, when I eat the food to satisfy my mouth hunger, I then spit the food out so I won't gain weight. Response Group 5: D Group 6 A. I don't feel any guilt or self-hate after I overeat. B. After I overeat, occasionally I feel guilt or self-hate. C. Almost all the time I experience strong guilt or self-hate after I overeat. Response Group 6: A Group 7 A. I don't lose total control of my eating when dieting even after periods when I overeat. B. Sometimes when I eat a forbidden food on a diet, I feel like I blew it and eat even more. C. Frequently, I have the habit of saying to myself, I've blown it now, why not go all the way, when I overeat on a diet. When that happens I eat more. D. I have a regular habit of starting a strict diets for myself but I break the diets by going on an eating binge. My life seems to be either a feast or famine. Response Group 7: D Group 8 A. I rarely eat so much food that I feel uncomfortably stuffed afterwards. B. Usually about once a month, I each such a quantity of food, I end up feeling very stuffed. C. I have regular periods during the month when I eat large amounts of food, either at mealtime or at snacks. D. I eat so much food that I regularly feel quite uncomfortable after eating and sometimes a bit nauseous. Response Group 8: C Group 9 A. My level of calorie intake does not go up very high or go down very low on a regular basis. B. Sometimes after I overeat, I will try to reduce my caloric intake to almost nothing to compensate for the excess calories I've eaten. C. I have a regular habit of overeating during the night. It seems that my routine is not to be hungry in the morning but overeat in the evening. D. In my adult years, I have had week-long periods where I practically starve myself. This follows periods when I overeat. It seems I live a life of either feast or famine. Response Group 9: C Group 10 A. I usually am able to stop eating when I want to. I know when enough is enough. B. Every so often, I experience a compulsion to eat which I can't seem to control. C. Frequently, I experience strong urges to eat which I seem unable to control, but at other times I can control my eating urges. D. I feel incapable of controlling urges to eat. I have a fear of not being able to stop eating voluntarily. Response Group 10: A Group 11 A. I don't have any problem stopping eating when I feel full. B. I usually can stop eating when I feel full but occasionally overeat leaving me feeling uncomfortably stuffed. C. I have a problem stopping eating once I start and usually I feel uncomfortably stuffed after I eat a meal. D. Because I have a problem not being able to stop eating when I want, I sometimes have to induce vomiting to relieve my stuffed feeling. Response Group 11: B Group 12 A. I seem to eat just as much when I'm with others, Family social gatherings as when I'm by myself. B. Sometimes, when I'm with other persons, I don't eat as much as I want to eat because I'm self-conscious about my eating. C. Frequently, I eat only a small amount of food when others are present, because I'm very embarrassed about my eating. D. I feel so ashamed about overeating that I pick times to overeat when I know no one will see me. I feel like a closet eater. Response Group 12: A Group 13 A. I eat three meals a day with only an occasional between meal snack. B. I eat 3 meals a day, but I also normally snack between meals. C. When I am snacking heavily, I get in the habit of skipping regular meals. D. There are regular periods when I seem to be continually eating, with no planned meals. Response Group 13: C Group 14 A. I don't think much about trying to control unwanted eating urges. B. At least some of the time, I feel my thoughts are pre-occupied with trying to control my eating urges. C. I feel that frequently I spend much time thinking about how much I ate or about trying not to eat anymore. D. It seems to me that most of my waking hours are pre-occupied by thoughts about eating or not eating. I feel like I'm constantly struggling not to eat. Response Group 14: B Group 15 A. I don't think about food a great deal. B. I have strong craving for food but they last only for brief periods of time. C. I have days when I can't seem to think about anything else but food. D. Most of my days seem to be pre-occupied with thoughts about food. I feel like I live to eat. Response Group 15: C Group 16 A. I usually know whether or not I'm physically hungry. I take the right portion of food to satisfy me. B. Occasionally, I feel uncertain about knowing whether or not I'm physically hungry. A these times it's hard to know how much food I should take to satisfy me. C. Even though I might know how many calories I should eat, I don't have any idea what is a normal amount of food for me. Response Group 16: B Binge Eating Score: 21 Score less than 17 Minimal Risk Score between 18-26 Moderate Risk Score between 27-46 High Risk Assessment & Plan Assessment & Plan (1) Adjustment disorder, unspecified: Code(s): F43.20 - Adjustment disorder, unspecified Plan After completing the assessment and comparing scores from Binge eating scale and PHQ9, at this time, this residential mortgage underwriter has no concerns about the patient's mental status, so the client is cleared and there is no need for follow up before surgery. Although, she is encouraged to follow up with provider again in 4-6 weeks post-op. Clinician has advised client about available resources if ever in need to access additional support and has encourage client to participate in post-op groups. Telehealth Telehealth Location of provider rendering services: practice address Location of patient: other (Work. [place], [place]) Patient Identification confirmed using: Name, : Yes Telehealth method: video Patient verbally consented to treatment: Yes Patient verbally consented to billing insurance company: Yes Patient informed of any privacy concerns related to visit: No Minutes spent on Phone/Video with Pt.: 60 Coding Level of Care Code New Pt Tele Psy Diag Eval (21058) Patient Type New Diagnoses Adjustment disorder, unspecified F43.20 Time Spent (min) 60
== END 2023-05-12 12:00 ==
PROVIDERS: Visit Provider Counselor Mental Health
DX: F43.20 Adjustment disorder, unspecified (principal)
CPT/HCPCS: 90791

== ENCOUNTER → 2023-05-12 11:42 | Outpatient (BNVA) | payer OTHER, SELFPAY | PROVIDERS: Visit Provider Counselor Mental Health ==

== ENCOUNTER 2023-05-14 07:49 | Outpatient (AMB) | payer MEDICAID, SELFPAY ==
--- NOTE | 2023-05-14 09:25 | MHC.OFFVISWM ---
Intake VS Expanded 05/14/23 09:35 Height 5 ft 3 in Weight 183 lb 4 oz BMI 32.5 Body Fat % 39.9 Body Fat Mass 73.1 Fat Free Mass 110.2 Visceral Fat Rating 15 Body Water % 41.2 Body Water Mass 75.5 Basal Metabolic Rate/Score 1,446 Intake Visit Reasons: TV Pre Op Lap Madiha 05/25/23 *LIQUOR CLERK* Allergies No Known Allergies Allergy (Verified 05/05/23 12:13) HPI TV Pre Op Lap Madiha 05/25/23 *LIQUOR CLERK* HPI Details Start time: 9.19am, End time: 9.43am ?I spent 19 minutes speaking with the patient on the phone plus an additional 5 minutes reviewing and updating records for a total of 24 minutes HPI Comments History of Present Illness Details Preoperative work-up revealed extensive cholelithiasis. We discussed this finding and we agreed to proceed with laparoscopic cholecystectomy Overall weight loss: 14.6 lbs or 7.37% [facility] Medical History Cardiomegaly Hyperlipidemia Hypertension Non-insulin dependent type 2 diabetes mellitus Obesity Surgical History Hx of dilation and curettage Family History Mother Diabetes Hypertension High cholesterol Daughter No problems noted. Daughter No problems noted. Social History Alcohol intake: current Alcohol intake frequency: holidays/special occasions only Patient Tobacco Use Status: Never used Tobacco Assessment & Plan Assessment & Plan (1) Cholelithiasis: Code(s): K80.20 - Calculus of gallbladder without cholecystitis without obstruction Qualifiers: Cholelithiasis location: gallbladder Cholecystitis presence: without cholecystitis Plan: The patient was not aware of having a cholelithiasis. We discussed in detail the importance of this finding in relation to the type of bariatric surgery that will be chosen. We also discussed that bariatric surgery may accelerate the onset of symptoms of cholelithiasis and that is why elective cholecystectomy in indicated and recommended. We discussed in detail the potential complications and their management including bleeding, bile leak, pancreatitis and major bile duct injury. All patient's questions were discussed and addressed. Telehealth Telehealth Location of provider rendering services: practice address Location of patient: address on file Patient Identification confirmed using: Name, : Yes Telehealth method: voice only Patient verbally consented to treatment: Yes Patient verbally consented to billing insurance company: Yes Patient informed of any privacy concerns related to visit: Yes Minutes spent on Phone/Video with Pt.: 24 Coding Level of Care Code Tele Est Pt Level 3 (40810) Diagnoses Cholelithiasis K80.20 Cholelithiasis location: gallbladder Cholecystitis presence: without cholecystitis Time Spent (min) 24
[2023-05-14 09:35] VITALS: BMI 32.5
== END 2023-05-14 09:44 | disposition home or self-care (01) ==
LOC: HO.HBS 07:49
PROVIDERS: Visit Provider Surgery
DX: K80.20 Calculus of gallbladder without cholecystitis without obstruction (principal)
CPT/HCPCS: 99024

== ENCOUNTER → 2023-05-14 07:49 | Outpatient (BNVA) | payer OTHER, SELFPAY | PROVIDERS: Visit Provider Surgery | DX: Z01.818 Encounter for other preprocedural examination (principal); K80.20 Calculus of gallbladder without cholecystitis without obstruction | CPT/HCPCS: 99212 ==

== ENCOUNTER 2023-05-20 12:20 | Outpatient (AMB) | payer MEDICAID, SELFPAY ==
--- NOTE | 2023-05-20 11:41 | MHC.AMNUTRGE ---
Intake Intake Visit Reasons: (TV) F/U SWL College Administrator Required: Yes College Administrator Name: Daniel [id number] Information Interpreted: non-clinical & clinical Allergies No Known Allergies Allergy (Verified 05/05/23 12:13) HPI Nutrition Presentation Reason for consult elevated BMI Diet Assmnt Details pt states she is following Dr. Soto nutrition plan, no concerns or questions today. She reports she likes the plan. Dinner meals has chicken or shrimp or fish with vegetables . In July is traveling to where she will stay for a week . She states surgeon is aware of this travel and plan is to have bariatric surgery before traveling. [facility] online classes: completed , reviewed. Dietary counseling reduction Diagnosis Nutrition problem #1 overweight/obesity As related to (etiology) #1 excess energy intake and physical inactivity As evidenced by (sign/symptom) #1 high BMI Monitoring/Goals Nutrition problem monitoring total energy intake, level of knowledge/skill, total PRO intake, total CHO intake and weight Most Recent Diabetes Results: No Data to Display [facility] Medical History Cardiomegaly Hyperlipidemia Hypertension Non-insulin dependent type 2 diabetes mellitus Obesity Surgical History Hx of dilation and curettage Family History Mother Diabetes Hypertension High cholesterol Daughter No problems noted. Daughter No problems noted. Social History Alcohol intake: current Alcohol intake frequency: holidays/special occasions only Patient Tobacco Use Status: Never used Tobacco Assessment & Plan Assessment & Plan (1) Obesity (BMI 30-39.9): Code(s): E66.9 - Obesity, unspecified Plan Patient is cleared from a nutrition standpoint for bariatric surgery. Educational requirements have been completed. Reviewed vitamin supplementation and commitment to protein shake for several months post surgery. She will need to communicate closely with surgeon regarding her nutrition as she [place] of the [place]. Encouraged communication with office as needed Telehealth Telehealth Location of provider rendering services: practice address Location of patient: address on file Patient Identification confirmed using: Name, : Yes Telehealth method: voice only Patient verbally consented to treatment: Yes Patient verbally consented to billing insurance company: Yes Patient informed of any privacy concerns related to visit: Yes Minutes spent on Phone/Video with Pt.: 20 Coding Level of Care Code Nutr Indiv Subseq ([id number]) Diagnoses Obesity (BMI 30-39.9) E66.9 Time Spent (min) 20
== END 2023-05-20 12:24 | disposition home or self-care (01) ==
LOC: HO.HBS 12:21
PROVIDERS: Visit Provider Dietitian, Registered
DX: E66.9 Obesity, unspecified (principal)

== ENCOUNTER → 2023-05-20 12:20 | Outpatient (BNVA) | payer OTHER, SELFPAY | PROVIDERS: Visit Provider Dietitian, Registered | DX: E66.9 Obesity, unspecified (principal) | CPT/HCPCS: 97803 ==

== ENCOUNTER 2023-05-22 08:46 | Outpatient (REF) | payer OTHER, SELFPAY ==
[2023-05-22 09:14] LABS: MANUAL DIFF FLAG NO
[2023-05-22 09:15] LABS: Basophils Percent Auto 0.3 % (0-2); Eosinophils Percent Auto 0.8 % (0-4); Hemoglobin 11.7 g/dl (12.0-16.0); Lymphocytes Absolute Auto 1.4 X10*3/uL (1.2-4.9); Lymphocytes Percent Auto 36.6 % (20-40); Mean Corpuscular HGB Conc 32.5 g/dl (31.0-35.0); Mean Corpuscular Hemoglobin 22.2 pg (27.0-33.0); Mean Corpuscular Volume 68.3 fL (80.0-98.0); Mean Platelet Volume 9.6 fL (9.4-12.3); Monocytes Absolute Auto 0.4 X10*3/uL (0.1-1.2); Monocytes Percent Auto 9.6 % (2-11); Neutrophils Percent Auto 52.7 % (45-73); Platelet Count 274 X10*3/uL (160-400); Red Blood Count 5.27 X10*6/uL (4.20-5.50); Red Cell Distribution Width 13.6 % (11.0-16.0); White Blood Count 3.9 X10*3/uL (4.8-10.8)
[2023-05-22 09:27] LABS: INTERNATIONAL NORM RATIO 1.1 (0.9-1.1); Prothrombin Time 13.4 SEC (11.1-13.3)
[2023-05-22 09:29] LABS: Partial Thromboplastin Time 28.9 SEC (26.0-36.8)
[2023-05-22 09:45] LABS: Alanine Aminotransferase 72 U/L (0-31); Albumin Level 4.4 g/dL (3.5-5.0); Alkaline Phosphatase 61 U/L (39-117); Anion Gap 12 (12-20); Aspartate Amino Transferase 40 U/L (5-31); Bilirubin Total 0.4 mg/dL (0.0-1.0); Blood Urea Nitrogen 11 mg/dL (9-16); Calcium 9.7 mg/dL (8.4-10.2); Carbon Dioxide 25 mmol/L (22-29); Chloride 106 mmol/L (96-108); Estimated Glomerular Filt Rate > 60; Glucose Random 100 mg/dL (60-115); Potassium 3.7 mmol/L (3.3-5.1); Sodium 139 mmol/L (135-145); Total Protein 7.7 g/dL (6.5-8.0)
== END 2023-05-22 08:47 | disposition home or self-care (01) ==
LOC: HO.LAB 08:46
PROVIDERS: Visit Provider Surgery
DX: K80.20 Calculus of gallbladder without cholecystitis without obstruction (principal)
CPT/HCPCS: 36415; 80053; 85025; 85610; 85730; 86850; 86900; 86901

== ENCOUNTER 2023-05-25 08:30 | Day surgery (SDC) | payer OTHER, SELFPAY ==
--- NOTE | 2023-05-21 15:15 | HO.ANESPROP2 ---
Documented by User: Pearl Kohler NP 05/21/23 15:17 HPI - Anesthesia Eval Consult details Narrative: 33yo F for Cholecystectomy Laparoscopic s/p EGD 04/2023 with TIVA PMFSH Active Problems Active Problems: All Active Problems (Updated 05/14/23 @ 09:44 by Santy Soto MD) Cholelithiasis (Acute) H. pylori infection (Acute) Morbid obesity (Acute) Abnormal EKG (Acute) Vitamin D deficiency (Acute) BMI 35.0-35.9,adult (Acute) Cardiomegaly (Acute) Hyperlipidemia (Acute) Hypertension (Acute) Non-insulin dependent type 2 diabetes mellitus (Acute) Obesity (Acute) Past Medical History Medical History Cardiomegaly Hyperlipidemia Hypertension Non-insulin dependent type 2 diabetes mellitus Obesity Family History Family History Mother Diabetes Hypertension High cholesterol Daughter No problems noted. Daughter No problems noted. Family history of problems with anesthesia: No Surgical History Surgical History Hx of dilation and curettage History of Problems with Anesthesia: No Social History Social History Alcohol intake: current Alcohol intake frequency: holidays/special occasions only Patient Tobacco Use Status: Never used Tobacco Use of substances other than those prescribed or required for medical reasons: No Are you DNR?: No Advance Directives: No Advance Directives Information Provided: Yes Meds Allergies Allergy/AdvReac Type Severity Reaction Status Date / Time No Known Allergies Allergy Verified 05/25/23 08:49 Home Medications Medication Instructions Recorded Confirmed Last Taken Type metformin 500 mg tablet 500 mg PO BID 04/01/23 05/25/23 05/24/23 History Exam Pertinent Lab Results Pertinent Lab Results: Laboratory Tests 04/07/23 08:48 WBC 5.1 Hgb 12.1 Hct 37.9 Plt Count 316 Sodium 138 Potassium 4.3 Chloride 106 Carbon Dioxide 26 BUN 10 Creatinine 0.65 Narrative Narrative: EKG 04/2023 Vent. Rate : 081 BPM Atrial Rate : 081 BPM P-R Int : 158 ms QRS Dur : 086 ms QT Int : 362 ms P-R-T Axes : 027 066 059 degrees QTc Int : 420 ms Normal sinus rhythm Nonspecific T wave abnormality Abnormal ECG No previous ECGs available Exercise stress 04/2023 Protocol: DOMINGO Max HR: 162 BPM 87% of Pred: 186 BPM Max BP: 142/070 mmHG Max Work Load: 8.6 METS Exercise stress test exercise 7 min 5 sec of Domingo protocol achieving 87% MPHR 8.4 METs, without anginal symptoms, without arrhythmias, with normotensive response to exercise, without EKG chnages. Test reviewed with Dr. Jones XR chest 2V 04/2023 IMPRESSION: 1. No acute disease. 2. Mild enlargement of the cardiac silhouette. Assessment and Plan Assessment Anesthesia Assessment: Chart Reviewed Final Anesthetic Review Family History of Problems with Anesthesia: No History of Problems with Anesthesia: No Documented by User: Kacey Almodovar MD 05/25/23 09:22 PMFSH Past Medical History Medical History Cardiomegaly Hyperlipidemia Hypertension Non-insulin dependent type 2 diabetes mellitus Obesity Family History Family History Mother Diabetes Hypertension High cholesterol Daughter No problems noted. Daughter No problems noted. Surgical History Surgical History Hx of dilation and curettage Social History Social History Alcohol intake: current Alcohol intake frequency: holidays/special occasions only Patient Tobacco Use Status: Never used Tobacco Use of substances other than those prescribed or required for medical reasons: No Are you DNR?: No Advance Directives: No Advance Directives Information Provided: Yes Meds Allergies Allergy/AdvReac Type Severity Reaction Status Date / Time No Known Allergies Allergy Verified 05/25/23 08:49 Home Medications Medication Instructions Recorded Confirmed Last Taken Type metformin 500 mg tablet 500 mg PO BID 04/01/23 05/25/23 05/24/23 History Exam Airway Mallampati Class: II TM Dist: >3cm Neck ROM: Full Heart: rrr Lungs: cta Assessment and Plan Assessment Anesthesia Assessment: Anesthesia Plan Discussed Final Anesthetic Review NPO: Yes ASA Class: III Final Preanesthetic Review: No Changes in Pt Med Stat, Meds/Allgs Chart Reviewed, Consent Obtained/Reviewed and Anes Risks/Benef Reviewed Patient Risk: Intermediate Procedure Risk: Intermediate Anesthetic Plan Anesthetic Plan: GA Disposition: Standard PACU
[2023-05-25] VITALS (10 sets, daily range): BP systolic 110–146; BP diastolic 69–100; PULSE 72–85; RESP 14–18; TEMP 36.3–37.1; O2SAT 98–100; BMI 32.1
[2023-05-25] MEDS: Lactated Ringers 1,000 ML 100 ML IVCONT (09:10)
[2023-05-25 09:12] LABS: UPreg QC Valid YES; Urine Pregnancy NEGATIVE (NEGATIVE)
[2023-05-25 09:19] LABS: Glucose, Whole Blood 102 mg/dL (60-115)
--- NOTE | 2023-05-25 10:07 | P.BOP_ITS ---
Brief Operative Note Date of Service: 05/25/23 Pre-op diagnosis: Cholelithiasis Post-op diagnosis: same Procedure: PROCEDURE DATE: 05/25/2023 PREOPERATIVE DIAGNOSIS: Symptomatic cholelithiasis, morbid obesity with a body mass index of 32kg/sq. meters and comorbidities including hypertension, hyperlipidemia, liver steatosis, anemia POSTOPERATIVE DIAGNOSIS: Same as above. PROCEDURE: Laparoscopic cholecystectomy Surgeon: Fletcher Soto M.D., Ph.D. Lean Process Deployment Consultant: Comfort Duckworth PA-C Anesthesia: General endotracheal anesthesia Estimated blood loss: Minimal FINDINGS AND PROCEDURE: OPERATIVE INDICATIONS: The patient is a 33 year old female known to me who was initially seen in my office for evaluation for refractory morbid obesity. During the preoperative workup, the patient was found to have cholelithiasis. I recommended cholecystectomy before the bariatric procedure due to the higher risks of acute cholecystitis as a result of the rapid weight loss. Risks and complications of the surgery were discussed with the patient in advance, particularly the postoperative bleeding, infection, DVT or PE, bile leak, major bile duct injury that may require additional surgical intervention, cardiac, pulmonary or renal complications among others. The patient understood the risks and was in agreement with the plan. PROCEDURE: After informed consent was obtained by the patient, the patient was transferred to the Operating Room and was placed in the supine position. The patient was given preoperative antibiotics and after successful induction of general anesthesia, pneumatic compression devices were placed. The patient was then prepped and draped in the usual sterile manner and abdominal access was established with the Kim technique. The abdomen was insufflated with C02 to a pressure of 15 mmHg. A 5 mm Versi-step port was placed, slightly to the right and superior from the umbilicus. The 5 mm camera was introduced. I inspected the area where the trocar had been placed and there was no injury. The patient was then placed initially in a steep reverse Trendelenburg position and three additional ports were placed, specifically a 12 mm Versi-step port just to the right of the midline below the xiphoid process and two 5 mm Versi-step ports at the right upper quadrant and right flank. At that point the patient was placed in a steep reverse Trendelenburg position tilted to the left side. The gallbladder was retracted cephalad and laterally. The peritoneal attachments of the gallbladder at the triangle of Calot posteriorly and anteriorly were taken down. The cystic duct and artery were both seen. They were completely dissected free, skeletonized all the way to the infundibulum of the gallbladder. In a similar fashion we also cleaned the liver bed just behind the cystic artery to make sure there was no additional structures in this area. Once we confirmed that both structures were entering into the gallbladder and there were no other structures in the area, they were both clipped with two clips proximally, one distally and were cut in- between. Then using the electrocautery we slowly took down the gallbladder from the liver bed. The gallbladder was in an intra-hepatic location that made dissection very difficult in combination with the patient's hepatomegaly. As a result, during the dissection the integrity of the gallbladder wall was jeopardized and there was a moderate amount of bile spilage. No stones were spilled however. Small areas of bleeding from the liver parenchyma were controlled with the cautery. After the gallbladder was completely detached from the liver bed, it was placed in an EndoCatch bag and was removed without difficulty from the xyphoid port. We then inspected the clips at the cystic duct and artery and were both in place. There was no active bleeding from the liver bed. I irrigated thoroughly the right upper quadrant and I removed all fluid until clear. A half sheet of Surgicel was placed at the liver bed. At that point the patient was placed in supine position, we deflated the abdomen. I checked the pelvis and any remaining fluid was retrieved. At that point we removed all ports under direct vision and no bleeding was noted from any of the port sites. The fascia of the 12 mm port was closed using a #1 Polysorb suture. 30cc of Ropivacaine plain were used to infiltrate the fascial closure as well as all skin incisions. The wounds were irrigated with saline mixed with antibiotic solution and then the skin was closed with 4-0 Monocryl subcuticular sutures antibiotic-coated. Steri-strips and OpSites were used to cover all incisions. The patient extubated and was transferred in stable condition to the Recovery Room for further care. I was present and performed all steps of the procedure. Ms. Comfort Duckworth was the first leveler. There were no residents to assist with this case. Fletcher Soto M.D., Ph.D., F.A.C.S. Surgeon: Santy Soto MD Anesthesia: GETA and local Was an Lean Process Deployment Consultant used for this Procedure?: No Lean Process Deployment Consultant: Comfort Duckworth Estimated blood loss (mL): 50 IV fluids (mL): 1,500 Urine output (mL): 0 (No [place]aza to record output) Pathology: other (Gallbladder) Condition: stable Disposition: PACU
--- NOTE | 2023-05-25 10:26 | MHC.SHP ---
Pre-Procedural Eval Section A - 24 Hr Update-Section A only Date of Service: 05/25/23 The patient is an INPATIENT: No The patient has been examined within 24 hours of the surgical procedure. The History & Physical has been completed within 30 days and I have reviewed it.: Yes Section B - Complete if H&P > 30 days Chief Complaint: Other cholelithiasis without obstruction Relevant Family History (Specify if Yes): No Relevant Social History: None Present Medications: None Medical History: No relevant PMH History of Previous Operations: No relevant previous surgery Allergies: Allergies Allergy/AdvReac Type Severity Reaction Status Date / Time No Known Allergies Allergy Verified 05/25/23 08:49 Review of Systems Sugical H&P ROS: Negative: Constitution, Cardiovascular, Respiratory, Neurological, Psychiatric, Hem-Onc, Allergic/Immunologic, Gastrointestinal, Genitourinary, Musculoskeletal, Integumentary, Endocrine and Eyes/Ears/Nose/Throat Exam Surgical H&P Exam: Normal: HEENT, Normal: Heart, Normal: Lungs, Normal: Extremities, Normal: Abdomen, Normal: Skin and Normal: Neurological Plan Diagnosis/Plan: Unchanged I have reviewed the history and physical and performed a pertinent physical examination on my patient. No changes have occurred unless specified. Time Spent With Patient Time: Total time managing care of this patient today ____ minutes.
[2023-05-25] MEDS: Iron Sucrose Complex 200 MG in 0.9 % Sodium Chloride 100 ML 440 MG IV (13:28)
== END 2023-05-25 15:06 | disposition home or self-care (01) ==
PROVIDERS: Nurse Practitioner; Visit Provider Surgery
PROC: 0FT44ZZ Resection of Gallbladder, Percutaneous Endoscopic Approach (ICD-10-PCS; CPT 47562; principal; 2023-05-25 10:30)
DX: K80.10 Calculus of gallbladder with chronic cholecystitis without obstruction (principal); I10 Essential (primary) hypertension; E66.9 Obesity, unspecified; Z68.32 Body mass index [BMI] 32.0-32.9, adult; E78.5 Hyperlipidemia, unspecified; I42.9 Cardiomyopathy, unspecified; E11.9 Type 2 diabetes mellitus without complications; Z79.84 Long term (current) use of oral hypoglycemic drugs
CPT/HCPCS: 47562; 81025; 82947; 88304; C9088; J0131; J0690; J1100; J1170; J1756; J2250; J2371; J2405; J2704; J2795; J3010

== ENCOUNTER → 2023-05-25 08:30 | Outpatient (BNV) | payer OTHER, SELFPAY | PROVIDERS: Visit Provider Surgery | DX: K80.80 Other cholelithiasis without obstruction (principal) | CPT/HCPCS: 47562 ==

== ENCOUNTER → 2023-05-31 10:33 | Outpatient (BNVA) | payer OTHER, SELFPAY | PROVIDERS: Visit Provider Surgery ==

== ENCOUNTER 2023-06-02 09:53 | Outpatient (REF) | payer OTHER, SELFPAY ==
--- NOTE | ~2023-06-02 | FL_ITS ---
EXAMINATION: XR FLUOROSCOPY UPPER GI WITH AIR CLINICAL INFORMATION: Preop evaluation prior to bariatric surgery COMPARISON: None TECHNIQUE: Fluoroscopic air contrast upper GI examination was performed utilizing standard techniques with thin and thick barium and effervescent granules. Numerous spot images were obtained. FINDINGS: Surgical clips are present in the right upper quadrant, consistent with prior history of cholecystectomy. Dual and single contrast images of the esophagus demonstrate normal caliber, contour, and mucosal pattern. No evidence of stricture, mass, or ulcerations identified. Esophageal peristalsis was normal. No evidence of hiatus hernia identified. Gastroesophageal reflux up to the thoracic inlet. Dual contrast and single contrast images of the stomach demonstrated normal contour. Mild prominence of the area gastricae of the fundus and body noted, possibly related to mild gastritis. No definite rugal fold thickening. Contrast freely passed into the gastric antrum and duodenal bulb without delay. Single and air-contrast images of the duodenal bulb demonstrate no abnormality. The duodenal sweep has a normal appearance, course, and mucosal fold appearance. The imaged proximal jejunum has a normal fold pattern and caliber. FLUOROSCOPY TIME: 2 minutes 52 seconds Number of Spot Images: 8 Number of Cine: 10 DOSE AREA PRODUCT: 2045 uGy-m2 (microgray-meter squared) FL/FL upper GI w air IMPRESSION: 1. Moderate gastroesophageal reflux otherwise unremarkable examination. 2. Status post cholecystectomy. 3. Findings which may reflect mild gastritis. This procedure was performed by Lb Fonseca PA-C, and supervised by Dr. Mcghee
== END 2023-06-02 09:54 | disposition home or self-care (01) ==
LOC: HO.XRAY 09:53
PROVIDERS: Visit Provider Surgery
DX: E66.9 Obesity, unspecified (principal); Z68.35 Body mass index [BMI] 35.0-35.9, adult; E11.9 Type 2 diabetes mellitus without complications
CPT/HCPCS: 74246

== ENCOUNTER → 2023-06-02 09:54 | Outpatient (BNV) | payer OTHER, SELFPAY | PROVIDERS: Visit Provider Physician Assistant Surgical | DX: Z01.818 Encounter for other preprocedural examination (principal); E66.9 Obesity, unspecified; Z68.35 Body mass index [BMI] 35.0-35.9, adult | CPT/HCPCS: 74246 ==

== ENCOUNTER → 2023-06-23 08:56 | Outpatient (BNVA) | payer OTHER, SELFPAY | PROVIDERS: Visit Provider Physician Assistant Surgical | DX: Z11.0 Encounter for screening for intestinal infectious diseases (principal) | CPT/HCPCS: 99211 ==

== ENCOUNTER 2023-06-23 15:02 | Outpatient (REF) | payer OTHER, SELFPAY ==
[2023-06-27 08:56] LABS: H Pylori Breath Test Negative (Negative)
== END 2023-06-23 15:03 | disposition home or self-care (01) ==
LOC: HO.LNP 15:02
PROVIDERS: Visit Provider Surgery
DX: E66.9 Obesity, unspecified (principal); Z68.35 Body mass index [BMI] 35.0-35.9, adult; E11.9 Type 2 diabetes mellitus without complications; I10 Essential (primary) hypertension; E78.5 Hyperlipidemia, unspecified
CPT/HCPCS: 83013

== ENCOUNTER 2023-10-04 09:17 | Outpatient (AMB) | payer OTHER, SELFPAY ==
--- NOTE | 2023-10-04 09:19 | A.OFFVIS_ITS ---
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 She is scheduled for laparoscopic sleeve gastrectomy on 10/19/2023. She initially started the Surgical weight loss program on 04/06/2023 with a weight of 198 lb and a BMI of 35.1. She did undergo a laparoscopic cholecystectomy for symptomatic cholelithiasis on 05/25/2023 for which she has recovered well. Weight today is 160.4 lb with a BMI of 28.4. She has lost 37.6 lb or 18.9% total body weight loss. This is a preop visit for surgery which is scheduled on 10/19/2023 Wakes at 7 am, bed at 11 pm Meal plan: celebrate rebuild [facility] Medical History Cardiomegaly Hyperlipidemia Hypertension Non-insulin dependent type 2 diabetes mellitus Obesity Surgical History Hx laparoscopic cholecystectomy Hx of dilation and curettage Family History Mother Diabetes Hypertension High cholesterol Daughter No problems noted. Daughter No problems noted. Social History Alcohol intake: current Alcohol intake frequency: holidays/special occasions only Patient Tobacco Use Status: Never used Tobacco Physical Exam Const General: healthy appearing and no acute distress Resp Effort & Inspection: normal respiratory effort Auscultation: clear to auscultation bilaterally Cardio Rate: regular rate Rhythm: regular rhythm GI Auscultation: normal bowel sounds Extrem General: Yes normal to inspection Assessment & Plan Assessment & Plan (1) Obesity: Code(s): E66.9 - Obesity, unspecified Category: Medical Qualifiers: Body mass index: BMI 35.0-35.9 Obesity classification: adult class 2 (BMI 35 - 39.9) Obesity type: due to excess calories Serious obesity comorbidity presence: with serious comorbidity Qualified Code(s): E66.01 - Morbid (severe) obesity due to excess calories; Z68.35 - Body mass index [BMI] 35.0-35.9, adult Plan: 1. Plan for lap sleeve gastrectomy including upper GI endoscopy . If diaphragmatic or ventral hernias are present at time of surgery, these will be repaired laparoscopically as well. Risks and complications were discussed in detail including possible conversion to an open procedure, anastomotic leak, bleeding requiring transfusion, small bowel obstruction, , DVT and pulmonary embolism, cardiac, or pulmonary complications, as exterminator helper complications such as anastomotic ulcer, insufficient weight loss and vitamin deficiencies. I emphasized the importance of close follow-up, adherence to in structions and good communication. So far she has proven to be an excellent communicator and very compliant with all our directions accomplishing a great weight loss. I believe that she is an excellent candidate and she is ready. 2. Preop prescriptions were provided and explained the purpose of each one. Need to be purchased preop. Start Pantoprazole now as you get it from the pharmacy, 1 pill per day. Sucralfate and Zofran are for after surgery. 3. Bowel prep: please do 7 packets of Miralax mixing each one with an 8oz glass of water on 10/17/23 and the same amount on 10/18/23 4. Needs to purchase 1oz medicine cups . 5. Needs to purchase Children's liquid Tylenol for postop pain control. 6. Stop all the vitamins on 10/12/23. Avoid aspirin, motrin, Advil, Aleve, Ibuprofen, Naproxyn. Tylenol is OK. 7. Purchase the Celebrate 4:1 protein shakes from the hospital's gift shop. 8. Will do basic preop blood work-up on the week of 10/11/23 - 10/15/23 fasting for 12 hours and is scheduled to see the Anesthesiologist prior to the day of surgery. 9. You must do the pre op labs before surgery or it may be cancelled 10. Importance of adherence to postop follow-up and recommendations was underscored and she understands that. 11. Stop food and bars as of 10/05/23 and continue with 5 celebrate rebuild shakes (2 scoops in 8oz almond milk) at 8am-10am, (1 scoop in 8 oz almond milk each) at 11am-1pm, 2pm-4pm, 5pm-7pm and one more at 8pm-10pm 12. No soups, broths or V8 13. Please take at the day of surgery the following medications:?none 14. Be sure to continue to send your weight measurements to Dr Soto weekly, and the most important weight measurement to send him is the day of surgery. 15. Stop any control pills and don't use them for one month after surgery 16. Absolutely no smoking or vaping, or marijuana until the surgery and for at least the first 4 weeks. Only nicotine patches are allowed. 17. The patient's?medical?history has been reviewed and they are considered low risk for post op DVT and therefore DVT prophylaxis is not considered necessary. Travel after surgery was reviewed. The patient has not disclosed any travel plans during the first 30 days after surgery and they have been advised that within the first 30 days after surgery any bus, plane, train or car travel over 2 hours in duration is contraindicated due to the possibility of developing blood clots from immobility. Any travel, needs to include periods of ambulation of 10 minutes in duration every 2 hours.? Patient was instructed to discuss any plans for travel during this period with their bariatric surgeon.? Orders: Orders Comprehensive Met. Panel Today E11.9 - Type 2 diabetes mellitus without complications, E78.5 - Hyperlipidemia, unspecified, I10 - Essential (primary) hypertension, Z01.818 - Encounter for other preprocedural examination Vitamin A Today E11.9 - Type 2 diabetes mellitus without complications, E78.5 - Hyperlipidemia, unspecified, I10 - Essential (primary) hypertension, Z01.818 - Encounter for other preprocedural examination Hemoglobin A1c Today E11.9 - Type 2 diabetes mellitus without complications, E78.5 - Hyperlipidemia, unspecified, I10 - Essential (primary) hypertension, Z01.818 - Encounter for other preprocedural examination Prothrombin Time INR Today E11.9 - Type 2 diabetes mellitus without complications, E78.5 - Hyperlipidemia, unspecified, I10 - Essential (primary) hypertension, Z01.818 - Encounter for other preprocedural examination Lipid Panel Today E11.9 - Type 2 diabetes mellitus without complications, E78.5 - Hyperlipidemia, unspecified, I10 - Essential (primary) hypertension, Z01.818 - Encounter for other preprocedural examination Complete Blood Count Auto Diff Today E11.9 - Type 2 diabetes mellitus without complications, E78.5 - Hyperlipidemia, unspecified, I10 - Essential (primary) hypertension, Z01.818 - Encounter for other preprocedural examination Ferritin Today E11.9 - Type 2 diabetes mellitus without complications, E78.5 - Hyperlipidemia, unspecified, I10 - Essential (primary) hypertension, Z01.818 - Encounter for other preprocedural examination Zinc Today E11.9 - Type 2 diabetes mellitus without complications, E78.5 - Hyperlipidemia, unspecified, I10 - Essential (primary) hypertension, Z01.818 - Encounter for other preprocedural examination TSH reflex Free T4 Today E11.9 - Type 2 diabetes mellitus without complications, E78.5 - Hyperlipidemia, unspecified, I10 - Essential (primary) hypertension, Z01.818 - Encounter for other preprocedural examination Vitamin B1 Today E11.9 - Type 2 diabetes mellitus without complications, E78.5 - Hyperlipidemia, unspecified, I10 - Essential (primary) hypertension, Z01.818 - Encounter for other preprocedural examination Type and Screen Today E11.9 - Type 2 diabetes mellitus without complications, E78.5 - Hyperlipidemia, unspecified, I10 - Essential (primary) hypertension, Z01.818 - Encounter for other preprocedural examination Vitamin B12 Today E11.9 - Type 2 diabetes mellitus without complications, E78.5 - Hyperlipidemia, unspecified, I10 - Essential (primary) hypertension, Z01.818 - Encounter for other preprocedural examination C Reactive Protein Today E11.9 - Type 2 diabetes mellitus without complications, E78.5 - Hyperlipidemia, unspecified, I10 - Essential (primary) hypertension, Z01.818 - Encounter for other preprocedural examination Partial Thromboplastin Time Today E11.9 - Type 2 diabetes mellitus without complications, E78.5 - Hyperlipidemia, unspecified, I10 - Essential (primary) hypertension, Z01.818 - Encounter for other preprocedural examination Vitamin D 25-OH Total Today E11.9 - Type 2 diabetes mellitus without comp lications, E78.5 - Hyperlipidemia, unspecified, I10 - Essential (primary) hypertension, Z01.818 - Encounter for other preprocedural examination IRON PROFILE Today E11.9 - Type 2 diabetes mellitus without complications, E78.5 - Hyperlipidemia, unspecified, I10 - Essential (primary) hypertension, Z01.818 - Encounter for other preprocedural examination Medications: New polyethylene glycol 3350 (Miralax) mix one packet in 8 oz of water each. Do 7 packets on 10/17/23 and repeat on 10/18/23 17 grams PO DAILY 14 ea 0RF ondansetron 4 mg PO Q6H PRN 14 tabs 0RF nausea and vomiting sucralfate 10 mL PO BID 420 mL 4RF pantoprazole 40 mg PO DAILY 90 tabs 0RF
[2023-10-04 09:26] VITALS: BP 120/64; PULSE 64; TEMP 36.4; O2SAT 99; BMI 28.4
== END 2023-10-04 09:51 | disposition home or self-care (01) ==
PROVIDERS: Visit Provider Physician Assistant Surgical
DX: E66.01 Morbid (severe) obesity due to excess calories (principal); Z68.35 Body mass index [BMI] 35.0-35.9, adult
CPT/HCPCS: 99214

== ENCOUNTER → 2023-10-04 09:17 | Outpatient (BNVA) | payer OTHER, SELFPAY | PROVIDERS: Visit Provider Physician Assistant Surgical | DX: Z01.818 Encounter for other preprocedural examination (principal); E66.01 Morbid (severe) obesity due to excess calories; E11.9 Type 2 diabetes mellitus without complications; E78.5 Hyperlipidemia, unspecified; I10 Essential (primary) hypertension; Z90.49 Acquired absence of other specified parts of digestive tract; Z98.84 Bariatric surgery status; Z68.35 Body mass index [BMI] 35.0-35.9, adult | CPT/HCPCS: 99212 ==

== ENCOUNTER → 2023-10-20 09:00 | Outpatient (BNVA) | payer OTHER, SELFPAY | PROVIDERS: Visit Provider Physician Assistant Surgical ==

== ENCOUNTER 2023-10-27 11:29 | Inpatient (IN) | payer OTHER, SELFPAY ==
--- NOTE | 2023-10-05 13:30 | HO.ANESPROP2 ---
Documented by User: Pearl Kohler NP 10/26/23 08:42 HPI - Anesthesia Eval Consult details Narrative: 33yo F for Gastrectomy Sleeve,EGD,possible diaphragmatic hernia,possible ventral hernia,possible open, 10/27/23 PMFSH Active Problems Active Problems: All Active Problems Pre-op evaluation (Acute) Constipation (Acute) Cholelithiasis (Acute) H. pylori infection (Acute) Morbid obesity (Acute) Abnormal EKG (Acute) Vitamin D deficiency (Acute) BMI 35.0-35.9,adult (Acute) Cardiomegaly (Acute) Hyperlipidemia (Acute) Hypertension (Acute) Non-insulin dependent type 2 diabetes mellitus (Acute) Obesity (Acute) Past Medical History Medical History Hx of thyroid nodule Anemia Cardiomegaly Hyperlipidemia Hypertension Non-insulin dependent type 2 diabetes mellitus Obesity Family History Family History Mother Diabetes Hypertension High cholesterol Daughter No problems noted. Daughter No problems noted. Family history of problems with anesthesia: No Surgical History Surgical History History of esophagogastroduodenoscopy (EGD) Hx laparoscopic cholecystectomy Hx of dilation and curettage History of Problems with Anesthesia: No Social History Social History Are you a primary respiratory care technician to a significant other at home: No Do you presently have visiting nurse or other home services: No Alcohol intake: current Alcohol intake frequency: holidays/special occasions only Patient Tobacco Use Status: Never used Tobacco Use of substances other than those prescribed or required for medical reasons: No Have you been hit, kicked, punched, or otherwise hurt by someone within the past year? If so, by whom?: No Are you DNR?: No Advance Directives: No Advance Directives Information Provided: No Advance Directives on File: No Recently lost weight without trying: No Eating poorly because of decreased appetite: No Nutrition Risks: No Nutritional Risk Patient : No : No Poor oral hygiene: No Meds Allergies Allergy/AdvReac Type Severity Reaction Status Date / Time No Known Allergies Allergy Verified 10/04/23 09:21 Home Medications ?Medication ?Instructions ?Recorded ?Confirmed ?Last Taken ?Type ibuprofen 200 mg tablet 400 mg PO Q6H PRN Pain 10/04/23 10/27/23 10/06/23 History cholecalciferol (vitamin D3) 125 125 mcg PO DAILY 10/27/23 Unknown History mcg (5,000 unit) capsule metformin 500 mg tablet 500 mg PO BID 10/27/23 Unknown History polyethylene glycol 3350 17 gram 17 g PO DAILY 10/27/23 Unknown History oral powder packet Exam Height,Weight and Vital Signs: Height 160 ft 3 in Pertinent Lab Results Pertinent Lab Results: Lab Results 10/20/23 10/20/23 10/20/23 Range/Units 09:05 09:30 09:43 WBC 4.1 L (4.8-10.8) X10*3/uL RBC 5.86 H (4.20-5.50) X10*6/uL Hgb 12.8 (12.0-16.0) g/dl Hct 40.0 (37.0-47.0) % MCV 68.3 L (80.0-98.0) fL MCH 21.8 L (27.0-33.0) pg MCHC 32.0 (31.0-35.0) g/dl RDW 14.1 (11.0-16.0) % Plt Count 286 (160-400) X10*3/uL MPV 9.9 (9.4-12.3) fL Immature Gran % (Auto) 0.2 (0.0-0.4) % Neut % (Auto) 44.6 L (45-73) % Lymph % (Auto) 47.3 H (20-40) % Morton % (Auto) 6.4 (2-11) % Eos % (Auto) 1.0 (0-4) % Baso % (Auto) 0.5 (0-2) % Lymph # (Auto) 1.9 (1.2-4.9) X10*3/uL Morton # (Auto) 0.3 (0.1-1.2) X10*3/uL Eos # (Auto) 0.0 (0.0-0.4) X10*3/uL Baso # (Auto) 0.0 (0.0-0.2) X10*3/uL Abs Immat Gran (auto) 0.01 (0.00-0.03) X10*3/uL Absolute Neuts (auto) 1.8 L (2.0-8.3) x10*3/uL Absolute Nucleated RBC 0.000 (0.0-0.012) X10*3/uL Nucleated RBC % (auto) 0.0 (0.0-0.2) /100WBC PT 13.1 (11.1-13.3) SEC INR 1.1 (0.9-1.1) APTT 32.2 (26.0-36.8) SEC Sodium 139 (135-145) mmol/L Potassium 3.7 (3.3-5.1) mmol/L Chloride 105 (96-108) mmol/L Carbon Dioxide 27 (22-29) mmol/L Anion Gap 11 L (12-20) BUN 13 (9-16) mg/dL Creatinine 0.73 (0.5-1.4) mg/dL Estim Creat Clear Calc TNP Estimated GFR > 60 Random Glucose 101 (60-115) mg/dL Estimat Average Glucose 120 mg/dL Hemoglobin A1c % 5.8 (<6.0) % Calcium 10.1 (8.4-10.2) mg/dL Iron 45 (30-160) mcg/dL TIBC 302 (228-428) mcg/dL % Saturation 15 (15-50) % Unsat Iron Binding 257 ug/dL Ferritin 67 (10-122) ng/mL Total Bilirubin 0.2 (0.0-1.0) mg/dL AST 11 (5-31) U/L ALT 13 (0-31) U/L Alkaline Phosphatase 62 (39-117) U/L C-Reactive Protein < 0.10 (< or = 0.50) mg/dL Total Protein 8.1 H (6.5-8.0) g/dL Albumin 4.6 (3.5-5.0) g/dL Triglycerides 82 (<150) mg/dL Cholesterol 168 (<200) mg/dL LDL Cholesterol, Calc 103 H (<100) mg/dL HDL Cholesterol 49 (>40) mg/dL Vitamin A 49 (38-98) mcg/dL Vitamin B12 612 (200-900) pg/mL 25-OH Vitamin D Total 36.4 (>30) ng/mL TSH 1.00 (0.32-4.0) uIU/mL Zinc 75 (60-130) mcg/dL Blood Type O Positive Antibody Screen NEGATIVE Narrative Narrative: EKG 04/2023 Vent. Rate : 081 BPM Atrial Rate : 081 BPM P-R Int : 158 ms QRS Dur : 086 ms QT Int : 362 ms P-R-T Axes : 027 066 059 degrees QTc Int : 420 ms Normal sinus rhythm Nonspecific T wave abnormality Abnormal ECG No previous ECGs available Subsequent ECHO and ETT WNL XR chest 2V 04/2023 IMPRESSION: 1. No acute disease. 2. Mild enlargement of the cardiac silhouette. Assessment and Plan Assessment Anesthesia Assessment: Chart Reviewed Final Anesthetic Review Family History of Problems with Anesthesia: No History of Problems with Anesthesia: No Documented by User: Mulu Fairbanks MD 10/27/23 15:10 HPI - Anesthesia Eval Consult details Narrative: 33yo F for EGD, Laparoscopic Sleeve Gastrectomy,possible diaphragmatic hernia repair, possible ventral hernia repair, possible open PMFSH Active Problems Active Problems: All Active Problems Pre-op evaluation (Acute) Constipation (Acute) Cholelithiasis (Acute) H. pylori infection (Acute) Abnormal EKG (Acute) Vitamin D deficiency (Acute) BMI 26.9 Cardiomegaly (Acute) Hyperlipidemia (Acute) Hypertension (Acute) Non-insulin dependent type 2 diabetes mellitus (Acute) Obesity (Acute) Past Medical History Medical History Hx of thyroid nodule Anemia Cardiomegaly Hyperlipidemia Hypertension Non-insulin dependent type 2 diabetes mellitus Obesity Family History Family History Mother Diabetes Hypertension High cholesterol Daughter No problems noted. Daughter No problems noted. Family history of problems with anesthesia: No Surgical History Surgical History History of esophagogastroduodenoscopy (EGD) Hx laparoscopic cholecystectomy Hx of dilation and curettage History of Problems with Anesthesia: No Social History Social History Are you a primary respiratory care technician to a significant other at home: No Do you presently have visiting nurse or other home services: No Alcohol intake: current Alcohol intake frequency: holidays/special occasions only Patient Tobacco Use Status: Never used Tobacco Use of substances other than those prescribed or required for medical reasons: No Have you been hit, kicked, punched, or otherwise hurt by someone within the past year? If so, by whom?: No Are you DNR?: No Advance Directives: No Advance Directives Information Provided: No Advance Directives on File: No Recently lost weight without trying: No Eating poorly because of decreased appetite: No Nutrition Risks: No Nutritional Risk Patient : No : No Poor oral hygiene: No Meds Allergies Allergy/AdvReac Type Severity Reaction Status Date / Time No Known Allergies Allergy Verified 10/04/23 09:21 Home Medications ?Medication ?Instructions ?Recorded ?Confirmed ?Last Taken ?Type ibuprofen 200 mg tablet 400 mg PO Q6H PRN Pain 10/04/23 10/27/23 10/06/23 History cholecalciferol (vitamin D3) 125 125 mcg PO DAILY 10/27/23 Unknown History mcg (5,000 unit) capsule metformin 500 mg tablet 500 mg PO BID 10/27/23 Unknown History polyethylene glycol 3350 17 gram 17 g PO DAILY 10/27/23 Unknown History oral powder packet Exam Height,Weight and Vital Signs: Height 5 ft 3 in Weight 68.946 kg Vital Signs Temp Pulse Resp BP Pulse Ox O2 Del Method 10/27/23 12:10 99.2 F 73 16 111/76 99 Room Air Pertinent Lab Results Pertinent Lab Results: Lab Results 10/20/23 10/20/23 10/20/23 Range/Units 09:05 09:30 09:43 WBC 4.1 L (4.8-10.8) X10*3/uL RBC 5.86 H (4.20-5.50) X10*6/uL Hgb 12.8 (12.0-16.0) g/dl Hct 40.0 (37.0-47.0) % MCV 68.3 L (80.0-98.0) fL MCH 21.8 L (27.0-33.0) pg MCHC 32.0 (31.0-35.0) g/dl RDW 14.1 (11.0-16.0) % Plt Count 286 (160-400) X10*3/uL MPV 9.9 (9.4-12.3) fL Immature Gran % (Auto) 0.2 (0.0-0.4) % Neut % (Auto) 44.6 L (45-73) % Lymph % (Auto) 47.3 H (20-40) % Morton % (Auto) 6.4 (2-11) % Eos % (Auto) 1.0 (0-4) % Baso % (Auto) 0.5 (0-2) % Lymph # (Auto) 1.9 (1.2-4.9) X10*3/uL Morton # (Auto) 0.3 (0.1-1.2) X10*3/uL Eos # (Auto) 0.0 (0.0-0.4) X10*3/uL Baso # (Auto) 0.0 (0.0-0.2) X10*3/uL Abs Immat Gran (auto) 0.01 (0.00-0.03) X10*3/uL Absolute Neuts (auto) 1.8 L (2.0-8.3) x10*3/uL Absolute Nucleated RBC 0.000 (0.0-0.012) X10*3/uL Nucleated RBC % (auto) 0.0 (0.0-0.2) /100WBC PT 13.1 (11.1-13.3) SEC INR 1.1 (0.9-1.1) APTT 32.2 (26.0-36.8) SEC Sodium 139 (135-145) mmol/L Potassium 3.7 (3.3-5.1) mmol/L Chloride 105 (96-108) mmol/L Carbon Dioxide 27 (22-29) mmol/L Anion Gap 11 L (12-20) BUN 13 (9-16) mg/dL Creatinine 0.73 (0.5-1.4) mg/dL Estim Creat Clear Calc TNP Estimated GFR > 60 Random Glucose 101 (60-115) mg/dL Estimat Average Glucose 120 mg/dL Hemoglobin A1c % 5.8 (<6.0) % Calcium 10.1 (8.4-10.2) mg/dL Iron 45 (30-160) mcg/dL TIBC 302 (228-428) mcg/dL % Saturation 15 (15-50) % Unsat Iron Binding 257 ug/dL Ferritin 67 (10-122) ng/mL Total Bilirubin 0.2 (0.0-1.0) mg/dL AST 11 (5-31) U/L ALT 13 (0-31) U/L Alkaline Phosphatase 62 (39-117) U/L C-Reactive Protein < 0.10 (< or = 0.50) mg/dL Total Protein 8.1 H (6.5-8.0) g/dL Albumin 4.6 (3.5-5.0) g/dL Triglycerides 82 (<150) mg/dL Cholesterol 168 (<200) mg/dL LDL Cholesterol, Calc 103 H (<100) mg/dL HDL Cholesterol 49 (>40) mg/dL Vitamin A 49 (38-98) mcg/dL Vitamin B12 612 (200-900) pg/mL 25-OH Vitamin D Total 36.4 (>30) ng/mL TSH 1.00 (0.32-4.0) uIU/mL Zinc 75 (60-130) mcg/dL Blood Type O Positive Antibody Screen NEGATIVE Laboratory Results - last 24 hr 10/27/23 11:35 Urine Test NEGATIVE Airway Mallampati Class: II TM Dist: >3cm Neck ROM: Full Loose/Missing/Broken Teeth: No (Top front implant. Denies broken, loose, missing teeth) Heart: RRR Lungs: CTAB Assessment and Plan Assessment Anesthesia Assessment: Anesthesia Plan Discussed and Chart Reviewed Final Anesthetic Review Family History of Problems with Anesthesia: No History of Problems with Anesthesia: No NPO: Yes ASA Class: II Final Preanesthetic Review: No Changes in Pt Med Stat, Meds/Allgs Chart Reviewed, Consent Obtained/Reviewed and Anes Risks/Benef Reviewed Patient Risk: Low Procedure Risk: Low Assessment/Block/Sedation in SS: Assess/Block/Sedation-SS Anesthetic Plan Anesthetic Plan: GA Disposition: Standard PACU and Inp. Admit - Standard Bed
[2023-10-20 09:08] LABS: MANUAL DIFF FLAG NO
[2023-10-20 10:17] LABS: Basophils Percent Auto 0.5 % (0-2); Hemoglobin 12.8 g/dl (12.0-16.0); Imm Gran Abs Auto 0.01 X10*3/uL (0.00-0.03); Imm Gran Pct Auto 0.2 % (0.0-0.4); Lymphocytes Absolute Auto 1.9 X10*3/uL (1.2-4.9); Lymphocytes Percent Auto 47.3 % (20-40); Mean Corpuscular Hemoglobin 21.8 pg (27.0-33.0); Mean Corpuscular Volume 68.3 fL (80.0-98.0); Mean Platelet Volume 9.9 fL (9.4-12.3); Monocytes Absolute Auto 0.3 X10*3/uL (0.1-1.2); Monocytes Percent Auto 6.4 % (2-11); Neutrophils Absolute Auto 1.8 x10*3/uL (2.0-8.3); Neutrophils Percent Auto 44.6 % (45-73); Platelet Count 286 X10*3/uL (160-400); Red Blood Count 5.86 X10*6/uL (4.20-5.50); Red Cell Distribution Width 14.1 % (11.0-16.0); White Blood Count 4.1 X10*3/uL (4.8-10.8)
[2023-10-20 10:20] LABS: INTERNATIONAL NORM RATIO 1.1 (0.9-1.1); Prothrombin Time 13.1 SEC (11.1-13.3)
[2023-10-20 10:23] LABS: Partial Thromboplastin Time 32.2 SEC (26.0-36.8)
[2023-10-20 10:27] LABS: Estimated Average Glucose 120 mg/dL; Hemoglobin A1c % 5.8 % (<6.0)
[2023-10-20 11:42] LABS: Alanine Aminotransferase 13 U/L (0-31); Albumin Level 4.6 g/dL (3.5-5.0); Alkaline Phosphatase 62 U/L (39-117); Anion Gap 11 (12-20); Aspartate Amino Transferase 11 U/L (5-31); Bilirubin Total 0.2 mg/dL (0.0-1.0); Blood Urea Nitrogen 13 mg/dL (9-16); C Reactive Protein < 0.10 mg/dL (< or = 0.50); Calcium 10.1 mg/dL (8.4-10.2); Carbon Dioxide 27 mmol/L (22-29); Chloride 105 mmol/L (96-108); Cholesterol 168 mg/dL (<200); Estimated Glomerular Filt Rate > 60; Glucose Random 101 mg/dL (60-115); HDL Cholesterol 49 mg/dL (>40); Iron 45 mcg/dL (30-160); LDL Cholesterol Calculated 103 mg/dL (<100); Percent Iron Saturation 15 % (15-50); Potassium 3.7 mmol/L (3.3-5.1); Sodium 139 mmol/L (135-145); Total Iron Binding Capacity 302 mcg/dL (228-428); Total Protein 8.1 g/dL (6.5-8.0); Triglycerides 82 mg/dL (<150); Unsaturated Iron Binding 257 ug/dL
[2023-10-20 11:57] LABS: Vitamin B12 612 pg/mL (200-900)
[2023-10-20 12:01] LABS: Ferritin 67 ng/mL (10-122); Vitamin D 25-OH Total 36.4 ng/mL (>30)
[2023-10-23 12:57] LABS: Zinc 75 mcg/dL (60-130)
[2023-10-26 05:59] LABS: Vitamin A 49 mcg/dL (38-98)
[2023-10-27] VITALS (10 sets, daily range): BP systolic 111–143; BP diastolic 62–86; PULSE 73–89; RESP 14–20; TEMP 36.3–37.3; O2SAT 98–100; BMI 26.9
[2023-10-27 11:44] LABS: UPreg QC Valid YES; Urine Pregnancy NEGATIVE (NEGATIVE)
[2023-10-27] MEDS: Lactated Ringers 1,000 ML 999 ML IV ×2 (12:27→13:52)
[2023-10-27] MEDS: Aprepitant 32 MG/4.4 ML VIAL IVPUSH (12:27)
--- NOTE | 2023-10-27 13:34 | MHC.SHP ---
Pre-Procedural Eval Section A - 24 Hr Update-Section A only Date of Service: 10/27/23 The patient is an INPATIENT: No The patient has been examined within 24 hours of the surgical procedure. The History & Physical has been completed within 30 days and I have reviewed it.: Yes Section B - Complete if H&P > 30 days Chief Complaint: obesity Relevant Family History (Specify if Yes): No Relevant Social History: None Present Medications: None Medical History: No relevant PMH History of Previous Operations: No relevant previous surgery Allergies: Allergies Allergy/AdvReac Type Severity Reaction Status Date / Time No Known Allergies Allergy Verified 10/04/23 09:21 Review of Systems Sugical H&P ROS: Negative: Constitution, Cardiovascular, Respiratory, Neurological, Psychiatric, Hem-Onc, Allergic/Immunologic, Gastrointestinal, Genitourinary, Musculoskeletal, Integumentary, Endocrine and Eyes/Ears/Nose/Throat Exam Surgical H&P Exam: Normal: HEENT, Normal: Heart, Normal: Lungs, Normal: Extremities, Normal: Abdomen, Normal: Skin and Normal: Neurological Plan Diagnosis/Plan: Unchanged I have reviewed the history and physical and performed a pertinent physical examination on my patient. No changes have occurred unless specified. Time Spent With Patient Time: Total time managing care of this patient today ____ minutes.
--- NOTE | 2023-10-27 13:39 | P.PNGS_ITS ---
Subjective Subjective Date of Service: 10/28/23 Interval history: Feels well. Mild incisional pain. She is tolerating phase 1 bariatric diet Physical Exam 2 Vital Signs: Vital Signs: Last Vital Signs Temp 99.2 F 10/27/23 12:10 Pulse 73 10/27/23 12:10 Resp 16 10/27/23 12:10 BP 111/76 10/27/23 12:10 Pulse Ox 99 10/27/23 12:10 O2 Del Method Room Air 10/27/23 12:10 BMI result Body Mass Index 26.9 GI: Inspection: Yes normal to inspection, Yes incision (clean, dry and intact) and Yes obesity Palpation (GI): Soft to palpation Extrem: Right lower extremity: normal to inspection (no calf tenderness) L eft lower extremity: normal to inspection (no calf tenderness) Objective Data Active Medications Lactated Ringer's (Lr) 1,000 mls @ 100 mls/hr IVCONT .Q10H MARISELA Labs 10/28/23 05:24 10/28/23 05:24 Labs: Laboratory Results - last 24 hr 10/27/23 11:35 Urine Test NEGATIVE Procedures Date of Service Date of Service: 10/28/23 Progress Note: A&P Assessment and plan (1) Obesity: Status: Inactive Assessment and Plan: s/p laparoscopic sleeve gastrectomy and gastropexy Doing well Will check am labs and if OK the patient will be discharged home (2) Non-insulin dependent type 2 diabetes mellitus: Status: Acute (3) Hypertension: Status: Acute (4) Hyperlipidemia: Status: Acute (5) Cardiomegaly: Status: Acute (6) GERD (gastroesophageal reflux disease): Status: Acute (7) Steatosis, liver: Status: Acute (8) S/P laparoscopic sleeve gastrectomy: Status: Acute Time Spent With Patient Time: Total time managing care of this patient today ____ minutes. Quality Stroke Does the patient have a stroke diagnosis?: No VTE Prior VTE?: No VTE Risk Level:: Surgical - moderate VTE Device Contraindication: N/A - Device Ordered VTE Drug Contraindication: Treatment Not Indicated
--- NOTE | 2023-10-27 13:40 | PM.OP ---
Brief Operative Note Date of Service: 10/27/23 Pre-op diagnosis: Obesity with comorbidities (see below) Post-op diagnosis: same Procedure: INITIAL PATIENT BMI ON PRESENTATION AT OUR OFFICE: 35.1 kg/m2 LAST BMI BEFORE SURGERY: 27.6 kg/m2 COMORBIDITIES: non-insulin dependent diabetes, hypertension, hyperlipidemia, GERD, liver steatosis ?The patient presented to the Weight Management Program with significant obesity that was negatively impacting the patient's comorbidities as listed above.? The program is a phased program with a special focus on preoperative medical weight management to promote substantial weight loss and prepare the patients for the second phase of the program: bariatric surgery. The patient participated in an intensive weekly lifestyle ?intervention and exercise program during which the patient ?has lost between the initial office visit and the last preoperative visit 43.4lbs, or 21.4% of initial actual body weight. It was deemed appropriate for the patient to now have bariatric surgery. In light of the current Covid-19 pandemic and the well documented strong association of obesity and increased risk of worse outcomes if infected with Covid-19 (REFERENCES:https://pubmed.ncbi.nlm.nih.gov/11246630/,?https://pubmed.ncbi.nlm.nih.gov/86019983/), any delay in undergoing bariatric surgery may lead to the patient's worsening health condition and increased?risk of more severe Covid-19 disease if infected. In addition a recent?study from [facility] published in [facility] on 02/24/2021 ([email or web address]) found that, among patients with obesity, substantial weight loss achieved with surgery was associated with improved outcomes of COVID-19 infection. The findings suggest that obesity can be a modifiable risk factor for the severity of COVID-19 infection. In addition, the patient met the BMI-criteria for bariatric surgery based on the BMI on initial presentation. The patient should not be penalized for achieving such weight loss because ?it is not sustainable long-term without surgical intervention and it was achieved in preparation for bariatric surgery ?under my direction and based on my published research ([email or web address]).[email or web address] and?https://www.soard.org/article/[email or web address](39)11933-X/pdf) ?that a 10% preoperative weight loss improves long-term weight loss after surgery and reduces perioperative complications.? Insurance carriers such as [facility] have endorsed my recommendations ?and have included in their policies criteria to include a 10% preoperative weight loss requirement. PROCEDURE: Esophago-gastroscopy, laparoscopic sleeve gastrectomy and laparoscopic gastropexy INDICATIONS: This is a 33 year-old female who was electively scheduled for laparoscopic, possibly open sleeve gastrectomy. The risks and complications of the procedure were discussed with the patient in advance, particularly the possibility of ; pulmonary embolism; staple line leak; bleeding; GERD; cardiac, pulmonary, or renal complications; as well as long-term problems such as insufficient weight loss, vitamin deficiency, strictures, or ulcers. The patient understood all the risks, and was in agreement to proceed with surgery. DESCRIPTION OF PROCEDURE: After informed consent was obtained from the patient, the patient was given preoperative antibiotics, and was transferred to the operating room. After successful induction of general anesthesia, pneumatic compression devices were placed on both lower extremities. An upper endoscopy was performed next. The oropharynx and esophagus appeared to be within normal limits. There was no diaphragmatic hernia present consistent with the findings of the preoperative upper GI. The stomach was entered. Then after all fluid and air were suctioned and the stomach was fully decompressed, the scope was withdrawn and secured in the mid esophagus. The patient was then prepped and draped in the usual sterile manner, and abdominal access was established at the right upper quadrant with the Kim technique. A 12 mm blunt port was inserted, and the abdomen was insufflated with CO2 to a pressure of 15 mmHg. Under direct visualization, additional ports were placed, specifically two 5 mm Versi-step ports to the left upper quadrant, and a 5 mm Versi-Step port to the right upper quadrant. 1% lidocaine plain was used to infiltrate all port sites as well as all fascia defects. Following that, the patient was placed in a steep reverse Trendelenburg position. An additional 5 mm port was placed to the right flank for the Mediflex retractor that was used to retract the left lobe of the liver. The gastro-esophageal fat pad was opened with the ultrasonic device (Thunderbeat, Olympus) and the anterior esophagus and hiatus were exposed. The angle of His was opened with the ultrasonic device the fundus of the stomach from any diaphragmatic and splenic attachments. I then opened the gastrocolic ligament between the transverse colon and the greater curvature of the stomach with the ultrasonic device to enter the lesser sac and facilitate the ligation of the short gastric vessels. I started at a mid-point along the greater curvature and using the Thunderbeat, all short gastric vessels were divided all the way to the angle of His until the left romeo was completely dissected at its entirety. I then divided the gastro-colic ligament distally to a distance of about 3-4 cm proximal to the pylorus. The stomach was then divided transversely with three Endo JENNIFER-45 purple and three JENNIFER-60 articulating purple loads using the [employer] stapler and loads. Every effort was made that the gastric sleeve had a tubular shape and an even caliber throughout. Once the sleeve resection was completed, the staple line of the gastric sleeve was reinforced with Hemoclips. The resected stomach was retrieved without difficulty from the Kim port. A gastropexy was then performed in order to prevent postoperative GERD and partial gastric volvulus. Several interrupted 2.0 Surgidac sutures were placed between the sleeve's staple line and the previously divided greater omentum and gastro-colic ligament using the Endo-Stitch device. ?An upper endoscopy was performed. There was no narrowing at the GE junction. The scope was easily advanced all the way to the pylorus which was clearly visualized. There was no narrowing anywhere and the sleeve's caliber was even throughout. The sleeve's staple line was inspected and there was no evidence of ischemia, bleeding or dehiscence. At that point the gastroscope was withdrawn from the patient?s mouth while we were decompressing the bowel and the stomach from any remaining air. I looked into the lesser sac to see how the sleeve was situating and it was situating well. There was no bleeding from the staple line, spleen, or short gastric vessels. The Mediflex retractor was removed, and the undersurface of the liver was inspected and there was no bleeding. The patient was placed in supine position. I closed the fascial defect of the 12 mm port site with a figure of eight #1 Polysorb suture. Then 30cc Ropivacaine plain with 10 mg of Dexamethasone were used to infiltrate the fascial closure as well as all skin incisions. At this point, the abdomen was deflated, all ports were removed under direct vision, and no bleeding was noted from any of the port sites. The skin incisions were irrigated with saline and were closed with 4-0 absorbable monofilament sutures. Steri-Strips and OpSites were used to cover all incisions. The patient was extubated and was transferred in stable condition to the recovery room for further care. I was present and performed all ferrell parts of the procedure. Mr. Kee was the school office assistant. There were no residents to assist with this case. Fletcher Soto MD, PhD, FACS Surgeon: Santy Soto MD Anesthesia: GETA, local and other (TAP block) Was an Insurance Loss Control Surveyor used for this Procedure?: No Insurance Loss Control Surveyor: Bob Kee Estimated blood loss (mL): 10 IV fluids (mL): 2,000 Urine output (mL): 0 (No [place]aza to record output) Pathology: other (Stomach) Condition: stable Disposition: PACU
--- NOTE | 2023-10-27 16:30 | P.DS_ITS ---
DS: Providers Provider Date of Service: 10/28/23 Date of admission: 10/27/23 11:29 Primary care physician: Loretta Hamilton DS: Diagnosis Discharge Diagnosis (1) Obesity: Status: Inactive (2) Non-insulin dependent type 2 diabetes mellitus: Status: Acute (3) Hypertension: Status: Acute (4) Hyperlipidemia: Status: Acute (5) Cardiomegaly: Status: Acute (6) GERD (gastroesophageal reflux disease): Status: Acute (7) Steatosis, liver: Status: Acute DS: Summary Hospital Course Hospital Course: ADMITTING DIAGNOSIS: overweight, htn, hld, dm, ? DISCHARGE DIAGNOSIS: same, s/p laparoscopic sleeve gastrectomy ? PAST SURGICAL HISTORY: cholecystectomy ? PROCEDURE: upper endoscopy, laparoscopic sleeve gastrectomy ? DISCHARGE SUMMARY: ? History of Present Illness: ? The patient is a?33 year-old woman with a BMI of?35.1 kg/m2 and associated co- morbidities as described above. The patient had extensive work-up,lost?46 lbs preoperatively and was electively scheduled for laparoscopic, possible open s leeve gastrectomy and gastropexy. Risks and complications of the surgery were discussed with the patient in advance, particularly the possibility of , pulmonary embolism, anastomotic leak, bleeding, bowel injury, GERD, cardiac, renal or pulmonary complications. The patient understood all the risks and was in agreement with the surgical plan. ? Hospital Course: ? The patient underwent an uneventful laparoscopic sleeve gastrectomy with gastropexy on the day of admission. Postoperatively, the patient was transferred to the surgical floor. The patient received IV Acetaminophen and IV dilaudid for pain control. Patient was started on bariatric phase 1 diet POD #0. On postoperative day one, the patient was feeling well without nausea, vomiting, fevers, or tachycardia. The patient had some mild incisional pain and the abdomen was soft. ? On the morning of postoperative day one, the patient was continued on 1 ounce of water or ice every half hour. During the day, the patient did fairly well, having some incisional pain, but able to ambulate adequately and to tolerate liquids well. ? Since the patient is doing well, we decided that the patient was ready to be discharged. The patient was given instructions to follow-up with me next week and to call my office for any fever over 101, persistent abdominal pain, nausea, vomiting, GERD, symptoms of DVT such as calf tenderness, or leg swelling, or pulmonary embolism such as chest pain or shortness of breath. The patient was also instructed to drink 40-60 ounces of liquids per day using the 1-ounce cups. The patient had been given prescriptions for Tylenol for pain, Zofran prn for nausea, and pantoprazole and carafate previously. The patient was encouraged to ambulate and use the incentive spirometer. The patient was allowed to shower, but no baths, and encouraged to stay active at home. All of these instructions were given to the patient personally. All questions were answered and the patient understood all instructions, the instructions were also given to the patient in print. Time Attestation Total time managing care of this patient today: 25 mintues. Discharge Coordination Time (in mins): 25 Quality: Safe Use of Opioids Does Pt have an Active Cancer Diagnosis on the Problem List?: No Quality: Stroke Does the patient have a stroke diagnosis?: No Physical Exam 2 Vital Signs: Vital Signs: Last Vital Signs Temp 99.2 F 10/27/23 12:10 Pulse 73 10/27/23 12:10 Resp 16 10/27/23 12:10 BP 111/76 10/27/23 12:10 Pulse Ox 99 10/27/23 12:10 O2 Del Method Room Air 10/27/23 12:10 BMI result Body Mass Index 26.9 DS: Data Data Completed and Pending Pending studies at discharge: Pending at discharge 10/27/23 15:17 Surgical [PTH] Routine Labs on day of discharge: Laboratory Results - last 24 hr 10/27/23 11:35 Urine Test NEGATIVE Discharge Plan Discharge Anticipated Discharge Date/Time: 10/28/23 10:00 Patient Disposition: Home, Self-Care Discharge Diagnosis: s/p laparoscopic sleeve gastrectomy Referrals: Loretta Hamilton [Primary Care Provider] - 1 Week Discharge Medications: Continued pantoprazole 40 mg tablet,delayed release (DR/EC) 40 mg PO DAILY Qty: 90 0RF sucralfate 100 mg/mL suspension 10 ml PO BID Qty: 420 4RF Discontinued ibuprofen 200 mg Tablet 400 mg PO Q6H PRN (Reason: Pain) Rx Instructions: taken over a month ago cholecalciferol (vitamin D3) 125 mcg (5,000 unit) capsule 125 mcg PO DAILY Discharge Orders: Discharge Order (Routine); Ordered 10/28/23 Ordered By: Santy Soto Activity on Discharge: No heavy lifting Stand Alone Forms: Patient Portal Discharge page Print Language: [place] Care Plan Goals: weight loss Health Concerns: htn, hld, overweight Plan of Treatment: No tub baths, sex or returning to work until discussed at first post op appointment. No exercise, alcohol, tobacco or illegal drug use. Continue to use incentive spirometer hourly while awake. Walk in home for 5- 10 minutes every 2 hours during the first week. Follow all instructions in the bariatric handbook and call with any questions.Discharge Instructions 1. Please call your doctor or come back to the emergency room should any new symptoms arise. 2. You will receive a courtesy call from [facility] 24-48 hours after discharge. 3. Activity: abstain from alcohol, practice limited stair climbing, no bending, no driving, no exercise, no illicit substances, no lifting, no sex, no tub bath, no work. 4. Diet: continue as discussed with Dr. Soto. 5. Dressing Change/Wound Care: Your incision is covered by clear bandages and guaze underneath. If the area is tender, you may apply an ice pack for short intervals (no more than 20 minutes on, followed by at least 20 minutes off). Do not apply heat. Do not use creams, lotions, or topical antibiotics unless instructed to do so by your surgeon. These can cause infection or allergic reaction. 6. Call your doctor if: - Your temperature exceeds 101.5 F - You experience excessive pain or swelling - You have an unexpected reaction to medication - You have excessive bleeding - You experience continued vomiting/nausea - Your incision begins to separate - Your incision shows signs of infection such as increased redness, swelling, excessive pain, heat, or drainage (light blood or clear fluid is normal) 7. General instructions: No lifting greater than 5 lbs for 1 week and not more than 20lbs the next 3?weeks. No driving until seen at the office in 5-7 days after surgery. If you do not move your bowels in the next 2 days, please tell?Dr. Soto. Please walk around your home every hour or two to prevent blood clots from forming in your legs. You do not need to wake from sleeping to walk. Please sleep in a bed or couch to prevent kinking at the hips and knees. Please take your incentive spirometer (your lung transitional kindergarten teacher) home with you and use it for the next few days to prevent pneumonia. You may shower, no hot tubs, baths or swimming pools.?Please follow the post op diet instructions you are?given by Dr Soto? and text me daily at 5-6pm for an update.?If you have any issues or concerns or questions please communicate this to him via text.? The Celebrate shakes have all of the bariatric vitamins you need if you consume these shakes. If you are drinking other protein shakes, you will need to purchase the Celebrate multivitamins and calcium that are available in the hospital gift shop on the first floor of the main hospital.??Do not take anything without first discussing with Dr Soto. Please make sure you are consuming at least 40 ounces of fluids per day starting the?day AFTER your discharge from the hospital. Always drink 1-2 ml per minute using the 5ml?syringe. If you drink faster you may experience?bloating,?gas pain, burping, nausea or heartburn. In that case please slow down your pace and use the syringe to?understand better the?proper?pace and volume of drinking. Do not hesitate to contact the office with any questions at . The patient's medical history has been reviewed and they are considered low risk for post op DVT and therefore DVT prophylaxis is not considered necessary. Travel after surgery was reviewed. The patient has not disclosed any travel plans during the first 30 days after surgery and they have been advised that within the first 30 days after surgery any bus, plane, train or car travel over 2 hours in duration is contraindicated due to the possibility of developing blood clots from immobility. Any travel, needs to include periods of ambulation of 10 minutes in duration every 2 hours.? The patient was instructed to discuss any plans for travel during this period with their bariatric surgeon. Assessment: stable s/p laparoscopic sleeve gastrectomy
[2023-10-27 17:17] LABS: Hematocrit 34.5 % (37.0-47.0); Hemoglobin 11.3 g/dl (12.0-16.0)
[2023-10-27 17:28] LABS: Anion Gap 13 (12-20); Blood Urea Nitrogen 10 mg/dL (9-16); Calcium 9.2 mg/dL (8.4-10.2); Carbon Dioxide 21 mmol/L (22-29); Chloride 107 mmol/L (96-108); Creatinine Clr Calc Pharmacy 97.5; Estimated Glomerular Filt Rate > 60; Glucose Random 108 mg/dL (60-115); Potassium 3.6 mmol/L (3.3-5.1); Sodium 137 mmol/L (135-145)
[2023-10-27] MEDS: Lactated Ringers 1,000 ML 100 ML IVCONT (17:34)
[2023-10-27] MEDS: Famotidine/PF 20 MG/2 ML VIAL IVPUSH (19:40)
[2023-10-27] MEDS: HYDROmorphone HCl 0.5 MG/0.5 ML SYRINGE 0.25 MG IVPUSH (19:40)
[2023-10-27] MEDS: Acetaminophen 1,000 MG/100 ML PIGGYBACK 16.7 MG IV (19:42)
[2023-10-27] MEDS: 0.9 % Sodium Chloride Flush 3 ML SYRINGE IVFLUSH (19:45)
[2023-10-27] MEDS: ceFAZolin Sodium/Dextrose,Iso 2 GM/50 ML PIGGYBACK IV (21:25)
--- NOTE | 2023-10-27 22:05 | PHA.MEDREC ---
Addendum entered by Christiano Ramsay RPh 10/27/23 22:23: Med rec was reviewed by [facility]. Original Note: Pharmacy Consult ? Medication Reconciliation Pharmacy has completed the medication reconciliation. Confirmed medications with patient and help of program associate (Sharri). Patient confirmed her medications and states she is no longer taking her Metformin 500mg tab and has not since 10/12 of this month due to her surgery and she states she has no plans on taking it again. Patient also confirmed she has Ondansetron 4mg at home that she is using for after the surgery.
[2023-10-28] MEDS: HYDROmorphone HCl 0.5 MG/0.5 ML SYRINGE 0.25 MG IVPUSH (00:15)
[2023-10-28] MEDS: Lactated Ringers 1,000 ML 100 ML IVCONT (01:07)
[2023-10-28] MEDS: Acetaminophen 1,000 MG/100 ML PIGGYBACK 16.7 MG IV ×2 (01:15→06:32)
[2023-10-28 03:13] VITALS: BP 133/85; PULSE 77; RESP 16; TEMP 36.5; O2SAT 98
[2023-10-28 06:17] LABS: MANUAL DIFF FLAG NO
[2023-10-28 06:24] LABS: Vitamin B1 6 nmol/L (8-30)
[2023-10-28 06:26] LABS: Basophils Percent Auto 0.2 % (0-2); Hematocrit 37.7 % (37.0-47.0); Hemoglobin 12.2 g/dl (12.0-16.0); Imm Gran Abs Auto 0.02 X10*3/uL (0.00-0.03); Imm Gran Pct Auto 0.3 % (0.0-0.4); Lymphocytes Absolute Auto 0.9 X10*3/uL (1.2-4.9); Lymphocytes Percent Auto 14.7 % (20-40); Mean Corpuscular HGB Conc 32.4 g/dl (31.0-35.0); Mean Corpuscular Hemoglobin 21.9 pg (27.0-33.0); Mean Corpuscular Volume 67.7 fL (80.0-98.0); Mean Platelet Volume 10.6 fL (9.4-12.3); Monocytes Absolute Auto 0.1 X10*3/uL (0.1-1.2); Monocytes Percent Auto 1.8 % (2-11); Neutrophils Absolute Auto 5.1 x10*3/uL (2.0-8.3); Platelet Count 305 X10*3/uL (160-400); Red Blood Count 5.57 X10*6/uL (4.20-5.50); Red Cell Distribution Width 13.8 % (11.0-16.0); White Blood Count 6.1 X10*3/uL (4.8-10.8)
[2023-10-28 06:44] LABS: Anion Gap 15 (12-20); Blood Urea Nitrogen 8 mg/dL (9-16); Calcium 9.5 mg/dL (8.4-10.2); Carbon Dioxide 21 mmol/L (22-29); Chloride 104 mmol/L (96-108); Creatinine Clr Calc Pharmacy 114.2; Estimated Glomerular Filt Rate > 60; Glucose Random 121 mg/dL (60-115); Potassium 4.2 mmol/L (3.3-5.1); Sodium 136 mmol/L (135-145)
[2023-10-28] MEDS: 0.9 % Sodium Chloride Flush 3 ML SYRINGE IVFLUSH (06:59)
[2023-10-28] MEDS: Famotidine/PF 20 MG/2 ML VIAL IVPUSH (06:59)
[2023-10-28 07:07] VITALS: BP 128/76; PULSE 80; RESP 16; TEMP 36.3; O2SAT 100
--- NOTE | 2023-10-28 07:39 | HO.POSTANES ---
Post Anesthesia Evaluation Post Anesthesia Evaluation Date of Service: 10/28/23 Vital Signs: Vital Signs Temp Pulse Resp BP Pulse Ox O2 Del Method 10/28/23 07:07 97.4 F 80 16 128/76 100 Room Air 10/28/23 03:13 97.7 F 77 16 133/85 98 Room Air 10/27/23 23:56 97.7 F 80 14 143/86 H 99 Room Air Anesthesia: General Endotracheal-GETA Mental Status: Awake Pain Control: Satisfactory Nausea/Vomiting: None Hydration: Adequate Anesthesia-Related Issues: No Anes. Related Issues
--- NOTE | 2023-10-28 09:15 | MHC.CM.PN ---
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
--- NOTE | 2023-10-28 09:19 | MHC.CM.PN ---
CM MET WITH PT WITH A MOTOR POOL CLERK PT LIVES WITH HER AND IS INDEPENDENT WITH CARE PT HAS NO DME AND NO SERVICES SHE SAYS SHE HAS A HCP NAMING HER HER AGENT, COPY REQUESTED PCP: MIGEL LI DCP: HOME TODAY WITH NO SERVICES VIA PRIVATE TRANSPORT
== END 2023-10-28 10:39 | disposition home or self-care (01) | DRG 403 ==
LOC: HO.SSSA 16:32 → HO.S3 16:59
PROVIDERS: Nurse Practitioner; Physician Assistant Surgical; Admitting Provider Surgery; PCP Internal Medicine; Visit Provider Surgery
PROC: 0DB64Z3 Excision of Stomach, Percutaneous Endoscopic Approach, Vertical (ICD-10-PCS; CPT 43845; principal; 2023-10-27 13:30)
DX: E66.01 Morbid (severe) obesity due to excess calories (principal); K76.0 Fatty (change of) liver, not elsewhere classified; I11.9 Hypertensive heart disease without heart failure; E11.9 Type 2 diabetes mellitus without complications; E78.5 Hyperlipidemia, unspecified; K21.9 Gastro-esophageal reflux disease without esophagitis; Z68.27 Body mass index [BMI] 27.0-27.9, adult; Z79.899 Other long term (current) drug therapy
CPT/HCPCS: 36415; 80048; 80053; 80061; 81025; 82306; 82607; 82728; 83036; 83540; 84425; 84443; 84590; 84630; 85014; 85018; 85025; 85610; 85730; 86140; 86850; 86900; 86901; 88307; 88342; A4649; C9145; J0131; J0690; J1100; J1170; J2250; J2405; J2704; J2795; J3010; J7120

== ENCOUNTER → 2023-10-27 11:29 | Outpatient (BNV) | payer OTHER, SELFPAY | PROVIDERS: Admitting Provider Surgery; PCP Internal Medicine; Visit Provider Surgery | DX: E66.01 Morbid (severe) obesity due to excess calories (principal); Z68.35 Body mass index [BMI] 35.0-35.9, adult; E11.9 Type 2 diabetes mellitus without complications; I10 Essential (primary) hypertension; E78.5 Hyperlipidemia, unspecified; I51.7 Cardiomegaly; K21.9 Gastro-esophageal reflux disease without esophagitis; K76.0 Fatty (change of) liver, not elsewhere classified; Z98.84 Bariatric surgery status | CPT/HCPCS: 99024 ==

== ENCOUNTER → 2023-10-27 11:29 | Outpatient (BNV) | payer OTHER, SELFPAY | PROVIDERS: Admitting Provider Surgery; PCP Internal Medicine; Visit Provider Surgery | DX: E66.9 Obesity, unspecified (principal); Z68.27 Body mass index [BMI] 27.0-27.9, adult | CPT/HCPCS: 43659; 43775; 99499 ==

== ENCOUNTER 2023-11-03 10:14 | Outpatient (AMB) | payer OTHER, SELFPAY ==
--- NOTE | 2023-11-03 10:46 | MHC.OFFVISWM ---
VS Expanded 11/03/23 11:01 BP 118/74 Blood Pressure Location Rt brachial Blood Pressure Position Sitting Pulse 73 Pulse Source Pulse Oximeter Temp 96.8 F Temperature Source Tympanic Pulse Oximetry 97 Oxygen Delivery Method Room Air Height 5 ft 3 in Weight 141 lb BMI 25.0 Body Fat % 35.1 Body Fat Mass 49.4 Fat Free Mass 91.4 Visceral Fat Rating 7.0 Body Water % 46.0 Body Water Mass 64.8 Muscle Mass/Score 86.8 Basal Metabolic Rate/Score 1,252 Intake Visit Reasons: (OV) PO LSG 10/27/23 Allergies No Known Allergies Allergy (Verified 10/04/23 09:21) HPI Comments Details: Patient is a pleasant 33-year-old female who is 7 days status post laparoscopic sleeve gastrectomy performed on 10/27/2023. She is tolerating 3 celebrate 4 in 1 shakes with 1 scoop each and proximally 48-55 oz of fluid daily. She moved her bowels and has no pain. [facility] Medical History (Updated 10/28/23 @ 00:02 by Rajat Mosquera) Pre-op evaluation Constipation Cholelithiasis H. pylori infection Morbid obesity Abnormal EKG BMI 35.0-35.9,adult Hx of thyroid nodule Anemia Cardiomegaly Hyperlipidemia Hypertension Non-insulin dependent type 2 diabetes mellitus Obesity Surgical History (Updated 11/03/23 @ 11:06 by Aarti Dias [facility]) Hx of laparoscopic partial gastrectomy History of esophagogastroduodenoscopy (EGD) Hx laparoscopic cholecystectomy Hx of dilation and curettage Family History Mother Diabetes Hypertension High cholesterol Daughter No problems noted. Daughter No problems noted. Social History Household Members: Spouse Housing: House Are you a primary med care manager to a significant other at home: No Do you presently have visiting nurse or other home services: No Alcohol intake: current Alcohol intake frequency: holidays/special occasions only Patient Tobacco Use Status: Never used Tobacco service: No Physical Exam Vital Signs: Last Vital Signs Temp 96.8 F 11/03/23 11:01 Pulse 73 11/03/23 11:01 BP 118/74 11/03/23 11:01 Pulse Ox 97 11/03/23 11:01 Oxygen Delivery Method Room Air 11/03/23 11:01 BMI result Body Mass Index 25.0 GI Inspection: Yes incision (Clean, dry, intact.) Assessment & Plan Assessment & Plan (1) S/P laparoscopic sleeve gastrectomy: Code(s): Z98.84 - Bariatric surgery status Category: Surgical Plan: POD 7 s/p LSG on 10/27/[address] Soto Weight loss prior to surgery was 46 pounds or 23 % TBWL. Original weight on 04/06/2023 was 198 pounds and op weight was 152 pounds. Be sure to text Dr Soto exactly 1 week after surgery your weight from your home scale so he can adjust your meal plan. Continue meal plan until f/u w Bernarda in 2 weeks May shower, no submersion in bath for another week Continue abdominal binder with activity and exercise for the next 2 weeks. Exercise prior to surgery was treadmill and may resume No abdominal exercises for 6 weeks post operatively Will be emailed link to post op video for review Reminded of the pace of drinking, 2 mL per minute, 1 oz/15 min.
[2023-11-03 11:01] VITALS: BP 118/74; PULSE 73; TEMP 36; O2SAT 97; BMI 25.0
== END 2023-11-03 11:41 | disposition home or self-care (01) ==
PROVIDERS: Visit Provider Physician Assistant Surgical
DX: Z98.84 Bariatric surgery status (principal)
CPT/HCPCS: 99024

== ENCOUNTER → 2023-11-03 10:14 | Outpatient (BNVA) | payer OTHER, SELFPAY | PROVIDERS: Visit Provider Physician Assistant Surgical | DX: Z48.815 Encounter for surgical aftercare following surgery on the digestive system (principal); Z98.84 Bariatric surgery status | CPT/HCPCS: 99212 ==

== ENCOUNTER 2023-11-24 09:57 | Outpatient (AMB) | payer OTHER, SELFPAY ==
--- NOTE | 2023-11-24 10:38 | A.OFFVIS_ITS ---
VS Expanded 11/24/23 12:37 Height 5 ft 3 in Weight 137 lb BMI 24.3 Intake Visit Reasons: (TV) PO LSG 10/27/23 Clean Rice Broker Required: Yes Clean Rice Broker Name: [id number] Pierre Information Interpreted: clinical only Allergies No Known Allergies Allergy (Verified 10/04/23 09:21) Medication List - Last Reconciled 11/24/23 by JOSE Middleton pantoprazole 40 mg PO DAILY sucralfate 10 mL PO BID HPI Comments Details: This?is a?33?yo female who is s/p LSG 10/27/2023. Presents for 4 week post op visit. Weight at last visit on 11/03/2023 was 141 pounds with a BMI of 25, weight today is 137 pounds, representing a 4 pound weight loss with a BMI today of 24.3.? No complaints of nausea, emesis, abdominal pain or reflux, or constipation. Present meal plan includes: 3 Celebrate 4:1 shakes, 2 with 1 scoop, 1 with 2 scoops 1 bar Exercise routine includes: gym, weight training for arms and legs, walks on treadmill [facility] Medical History (Updated 11/05/23 @ 00:01 by Background Daemon) Pre-op evaluation Constipation Cholelithiasis H. pylori infection Morbid obesity Abnormal EKG BMI 35.0-35.9,adult Hx of thyroid nodule Anemia Cardiomegaly Hyperlipidemia Hypertension Non-insulin dependent type 2 diabetes mellitus Obesity Surgical History (Updated 11/05/23 @ 00:01 by Background Daemon) Hx of laparoscopic partial gastrectomy History of esophagogastroduodenoscopy (EGD) Hx laparoscopic cholecystectomy Hx of dilation and curettage Family History Mother Diabetes Hypertension High cholesterol Daughter No problems noted. Daughter No problems noted. Social History Household Members: Spouse Housing: House Are you a primary managed care manager to a significant other at home: No Do you presently have visiting nurse or other home services: No Alcohol intake: current Alcohol intake frequency: holidays/special occasions only Patient Tobacco Use Status: Never used Tobacco service: No Telehealth Telehealth Telehealth Platform: Telephone Location of provider rendering services: other Location of patient: address on file Patient Identification confirmed using: Name, : Yes Telehealth method: voice only Patient verbally consented to treatment: Yes Patient verbally consented to billing insurance company: Yes Patient informed of any privacy concerns related to visit: Yes Minutes spent on Phone/Video with Pt.: 15 Assessment & Plan Assessment & Plan (1) S/P laparoscopic sleeve gastrectomy: Code(s): Z98.84 - Bariatric surgery status Category: Surgical Plan Continue to follow meal plan per Dr Anthony Raymundo pt will get to introduce solid food in about 2 weeks. RTC 1 month. I spent a total of 30 minutes reviewing/updating records, examining the patient and counseling the patient on weight management as detailed above.
[2023-11-24 12:37] VITALS: BMI 24.3
== END 2023-11-24 12:42 | disposition home or self-care (01) ==
LOC: HO.HBS 09:57
PROVIDERS: PCP Internal Medicine; Visit Provider Physician Assistant Surgical
DX: Z71.3 Dietary counseling and surveillance (principal); Z90.3 Acquired absence of stomach [part of]; Z98.84 Bariatric surgery status
CPT/HCPCS: 99024

== ENCOUNTER → 2023-11-24 09:57 | Outpatient (BNVA) | payer OTHER, SELFPAY | PROVIDERS: PCP Internal Medicine; Visit Provider Physician Assistant Surgical ==

== ENCOUNTER 2024-01-06 11:18 | Outpatient (AMB) | payer OTHER, SELFPAY ==
--- NOTE | 2024-01-06 10:59 | A.OFFVIS_ITS ---
VS Expanded 01/06/24 11:05 Height 5 ft 3 in Weight 128 lb BMI 22.7 Intake Visit Reasons: TELEPHONE PO LSG 10/27/23 Combination Machine Tool Operator Required: Yes Combination Machine Tool Operator Services: Combination Machine Tool Operator Present Combination Machine Tool Operator Name: Brandy [id number] Information Interpreted: clinical only Allergies No Known Allergies Allergy (Verified 10/04/23 09:21) Medication List - Last Reconciled 01/06/24 by JOSE Middleton pantoprazole 40 mg PO DAILY sucralfate 10 mL PO BID HPI Comments Details: This?is a?33?yo female who is s/p LSG 10/27/2023. Presents for 2 month post op visit. Weight at last visit on 11/24/2023 was 137 pounds with a BMI of 24.3, weight today is 128 pounds, representing a 9 pound weight loss with a BMI today of 22.7.? No complaints of nausea, emesis, reflux, or constipation. Will have occasional abdominal pain if she gets too full. Reports some gas discomfort occasionally. Present meal plan includes: Celebrate 4:1 4 drinks, each in 8oz UAM; taking half scoop 1 bar 1 meal solid protein with veg taking MVI Exercise routine includes: gym, weight training for arms and legs, walks on treadmill [facility] Medical History (Updated 11/05/23 @ 00:01 by Background Eveline) Pre-op evaluation Constipation Cholelithiasis H. pylori infection Morbid obesity Abnormal EKG BMI 35.0-35.9,adult Hx of thyroid nodule Anemia Cardiomegaly Hyperlipidemia Hypertension Non-insulin dependent type 2 diabetes mellitus Obesity Surgical History (Updated 11/05/23 @ 00:01 by Background Eveline) Hx of laparoscopic partial gastrectomy History of esophagogastroduodenoscopy (EGD) Hx laparoscopic cholecystectomy Hx of dilation and curettage Family History Mother Diabetes Hypertension High cholesterol Daughter No problems noted. Daughter No problems noted. Social History Household Members: Spouse Housing: House Are you a primary care transitions manager to a significant other at home: No Do you presently have visiting nurse or other home services: No Alcohol intake: current Alcohol intake frequency: holidays/special occasions only Patient Tobacco Use Status: Never used Tobacco service: No Telehealth Telehealth Telehealth Platform: Telephone Location of provider rendering services: other Location of patient: address on file Patient Identification confirmed using: Name, : Yes Telehealth method: voice only Patient verbally consented to treatment: Yes Patient verbally consented to billing insurance company: Yes Patient informed of any privacy concerns related to visit: Yes Minutes spent on Phone/Video with Pt.: 18 Assessment & Plan Assessment & Plan (1) S/P laparoscopic sleeve gastrectomy: Code(s): Z98.84 - Bariatric surgery status Category: Medical Plan Continue meal plan per Dr. Cruz Pt has done very well with weight loss achieving healthy BMI. Continue PPI/sucralfate, due to complete this month. Simethicone ordered for complaints of gas pains. RTC 6-8 weeks. I spent a total of 30 minutes reviewing/updating records, examining the patient and counseling the patient on weight management as detailed above.
[2024-01-06 11:05] VITALS: BMI 22.7
== END 2024-01-06 11:35 | disposition home or self-care (01) ==
LOC: HO.HBS 11:18
PROVIDERS: PCP Internal Medicine; Visit Provider Physician Assistant Surgical
DX: Z98.84 Bariatric surgery status (principal)
CPT/HCPCS: 99024

== ENCOUNTER → 2024-01-06 11:18 | Outpatient (BNVA) | payer OTHER, SELFPAY | PROVIDERS: PCP Internal Medicine; Visit Provider Physician Assistant Surgical | DX: Z98.84 Bariatric surgery status (principal) ==

== ENCOUNTER 2024-03-22 09:15 | Outpatient (AMB) | payer OTHER, SELFPAY ==
--- NOTE | 2024-03-22 09:05 | MHC.OFFVISWM ---
VS Expanded 03/22/24 09:10 Height 5 ft 3 in Weight 116 lb BMI 20.5 Intake Visit Reasons: TELEPHONE PO LSG 10/27/23 Marketing Operations Specialist Required: Yes Marketing Operations Specialist Name: Brandy [id number] Information Interpreted: clinical only Allergies No Known Allergies Allergy (Verified 10/04/23 09:21) Medication List - Last Reconciled 03/22/24 by JOSE Middleton simethicone (Gas Relief (simethicone)) 80 mg PO BID-QID PRN HPI Comments Details: This?is a 33?yo female who is s/p LSG 10/27/2023. Presents for 5 month post op visit. Weight at last visit on 01/06/2024 was 128 pounds with a BMI of 22.7, weight today is 116 pounds, representing a 12 pound weight loss with a BMI today of 20.5.? No complaints of nausea, emesis, abdominal pain or reflux, or constipation. Present meal plan includes: Celebrate 4:1 4 drinks, each in 8oz UAM; taking half scoop 1 bar 1 meal solid protein with veg taking MVI Exercise routine includes: gym, weight training for arms and legs, walks on treadmill Pt reports noticing some excess skin of abdomen. She sometimes develops some rashes in skin folds. [facility] Medical History (Updated 03/22/24 @ 09:15 by JOSE Middleton) Pre-op evaluation Constipation Cholelithiasis H. pylori infection Morbid obesity Abnormal EKG BMI 35.0-35.9,adult Hx of thyroid nodule Anemia Cardiomegaly Hyperlipidemia Hypertension Non-insulin dependent type 2 diabetes mellitus Obesity Surgical History (Updated 11/05/23 @ 00:01 by Rajat Mosquera) Hx of laparoscopic partial gastrectomy History of esophagogastroduodenoscopy (EGD) Hx laparoscopic cholecystectomy Hx of dilation and curettage Family History Mother Diabetes Hypertension High cholesterol Daughter No problems noted. Daughter No problems noted. Social History Household Members: Spouse Housing: House Are you a primary health care specialist to a significant other at home: No Do you presently have visiting nurse or other home services: No Alcohol intake: current Alcohol intake frequency: holidays/special occasions only Patient Tobacco Use Status: Never used Tobacco service: No Telehealth Telehealth Telehealth Platform: Telephone Location of provider rendering services: practice address Location of patient: address on file Patient Identification confirmed using: Name, : Yes Telehealth method: voice only Patient verbally consented to treatment: Yes Patient verbally consented to billing insurance company: Yes Patient informed of any privacy concerns related to visit: Yes Minutes spent on Phone/Video with Pt.: 15 Assessment & Plan Assessment & Plan (1) S/P laparoscopic sleeve gastrectomy: Code(s): Z98.84 - Bariatric surgery status Category: Surgical (2) Excess skin: Code(s): L98.7 - Excessive and redundant skin and subcutaneous tissue Category: Medical Plan Congratulated pt on excellent weight loss and achieving a healthy BMI. She would like to lose a bit more weight. She reports fatigue and feeling sick more frequently, will order lab work. She will reach out to Dr. Leyva and request maintenance meal plan. Clotrimazole ointment ordered for rashes of excess skin. RTC 6-8 weeks I spent a total of 30 minutes reviewing/updating records, examining the patient and counseling the patient on weight management as detailed above. Orders: Orders Insulin Today Z.84 - Bariatric surgery status Hemoglobin A1c Today Z98.84 - Bariatric surgery status IRON PROFILE Today Z98.84 - Bariatric surgery status Zinc Today Z98.84 - Bariatric surgery status C Reactive Protein Today Z98.84 - Bariatric surgery status Vitamin B1 Today Z98.84 - Bariatric surgery status Vitamin A Today Z98.84 - Bariatric surgery status Ferritin Today Z98.84 - Bariatric surgery status Complete Blood Count Auto Diff Today Z98.84 - Bariatric surgery status Lipid Panel Today Z98.84 - Bariatric surgery status Comprehensive Met. Panel Today Z98.84 - Bariatric surgery status Vitamin B12 and Folate Today Z98.84 - Bariatric surgery status TSH reflex Free T4 Today Z98.84 - Bariatric surgery status Vitamin D 25-OH Total Today Z98.84 - Bariatric surgery status Medications: New clotrimazole 1% 1 appl topical BID 45 grams 3RF
[2024-03-22 09:10] VITALS: BMI 20.5
--- OUTSIDE RECORDS SUMMARY | 2024-03-22 09:41 | XMS_ITS | Clinical Summary ---
Author Organization [employer] Address [address] [facility] 7[address] [place] [address] Care Team Providers Care Watershed Coordinator Name Role Phone Unavailable Primary Care Provider Unavailabl e Social History Tobacco Use Types Packs/Day Years Used Date Smoking Tobacco: Never Assessed Comments Unknown Sex and Gender Information Value Date Recorded Sex Assigned at Female 12/29/2021 10:23 AM EDT Legal Sex Female 10:23 AM EDT Gender Identity Not on file Sexual Orientation Not on file Plan of Treatment Health Maintenance Due Date Last Done Comments Depression Screening 1988 Alcohol/Substance Use Screening 2000 Tobacco Screening 2000 DTaP/Tdap/Td Vaccines (1 - Tdap) 04/30/2007 Hepatitis B Vaccines (1 of 3 - 19+ 3-dose series) 04/30/2007 Pap Smear 2009 Cervical Cancer Screening 2018 HPV/Cotest 2018 COVID-19 Vaccine ( - 2023-2 5 season) 2023 Influenza Vaccine (#1) 2023 Zoster Vaccines (1 of 2) 2038 RSV Patients and Pa tients Aged 60 years or older (1 - 1-dose 75+ series) 04/30/2063 HIB Vaccines Aged Out No longer eligi ble based on patient's age to complete this topic HPV Vaccines Aged Out No longer eligi ble based on patient's age to complete this topic Hepatitis A Vaccines Aged Out No long er eligible based on patient's age to complete this topic IPV Vaccines Aged Out No longer eligi ble based on patient's age to complete this topic Meningococcal Vaccine Aged Out No coy angel eligible based on patient's age to complete this topic Pneumococcal Vaccine: Pediat rics (0 to 5 Years) and At-Risk Patients (6 to 64 Years) Aged Out No longer eligible b ased on patient's age to complete this topic RSV under 20 months Aged Out No longe r eligible based on patient's age to complete this topic Rotavirus Vaccines Aged Out No longer eligible based on patient's age to complete this topic
--- OUTSIDE RECORDS SUMMARY | 2024-03-22 09:41 | XMS_ITS | Encounter Summary ---
Author Organization [facility] Address [address] [facility] [address] [place] [address] Care Team Providers Care Corporate Physical Security Supervisor Name Role Phone Unavailable Primary Care Provider Unavailabl e Encounter Details Date Type Department Care Team (Latest Contact Info) Description 07/21/2018 Abstract [facility] CONVERSIONS Dental, Provider, DDS Social History Tobacco Use Types Packs/Day Years Used Date Smoking Tobacco: Never Assessed Comments Unknown Sex and Gender Information Value Date Recorded Sex Assigned at Female 12/29/2021 10:23 AM EDT Legal Sex Female 10:23 AM EDT Gender Identity Not on file Sexual Orientation Not on file documented as of this encounter Plan of Treatment Not on file documented as of this encounter Visit Diagnoses Not on filedocumented in this encounter
== END 2024-03-22 09:33 | disposition home or self-care (01) ==
LOC: HO.HBS 09:15
PROVIDERS: PCP Internal Medicine; Visit Provider Physician Assistant Surgical
DX: L98.7 Excessive and redundant skin and subcutaneous tissue (principal); Z98.84 Bariatric surgery status
CPT/HCPCS: 98967

== ENCOUNTER 2024-04-24 09:26 | Outpatient (REF) | payer OTHER, SELFPAY ==
[2024-04-24 09:51] LABS: MANUAL DIFF FLAG NO
[2024-04-24 10:00] LABS: Basophils Percent Auto 0.5 % (0-2); Eosinophils Percent Auto 0.7 % (0-4); Hematocrit 33.8 % (37.0-47.0); Hemoglobin 11.1 g/dl (12.0-16.0); Imm Gran Abs Auto 0.01 X10*3/uL (0.00-0.03); Imm Gran Pct Auto 0.2 % (0.0-0.4); Lymphocytes Absolute Auto 1.4 X10*3/uL (1.2-4.9); Lymphocytes Percent Auto 34.8 % (20-40); Mean Corpuscular HGB Conc 32.8 g/dl (31.0-35.0); Mean Corpuscular Hemoglobin 22.5 pg (27.0-33.0); Mean Corpuscular Volume 68.6 fL (80.0-98.0); Mean Platelet Volume 9.7 fL (9.4-12.3); Monocytes Absolute Auto 0.2 X10*3/uL (0.1-1.2); Monocytes Percent Auto 5.6 % (2-11); Neutrophils Absolute Auto 2.4 x10*3/uL (2.0-8.3); Neutrophils Percent Auto 58.2 % (45-73); Platelet Count 269 X10*3/uL (160-400); Red Blood Count 4.93 X10*6/uL (4.20-5.50); Red Cell Distribution Width 15.1 % (11.0-16.0); White Blood Count 4.1 X10*3/uL (4.8-10.8)
[2024-04-24 10:11] LABS: Estimated Average Glucose 114 mg/dL; Hemoglobin A1c % 5.6 % (<6.0); Total Hemoglobin (HGBA1C) 2913.9746 umol/L
--- OUTSIDE RECORDS SUMMARY | 2024-04-24 10:13 | XMS_ITS | Clinical Summary ---
Author Organization [employer] Address [address] [facility] [address] [place] [address] Care Team Providers Care Silo Painter Name Role Phone Unavailable Primary Care Provider [...] Alcohol/Substance Use Screening 2000 Tobacco Screening 2000 Family Planning (PISQ) 04/30/2003 DTaP/Tdap/Td Vaccines (1 - Tdap) 04/30/2007 Hepatitis [...] 5 Years) and At-Risk Patients (6 to 49) Years) Aged Out No longer eligible b ased on patient's age to complete this topic RSV under 20 months Aged Out No longe r eligible based on patient's age to complete this topic Rotavirus Vaccines Aged Out No longer eligible based on patient's age to complete this topic
--- OUTSIDE RECORDS SUMMARY | 2024-04-24 10:13 | XMS_ITS | Encounter Summary ---
Author Organization [employer] [facility] Address [address] [facility] [address] [place] [address] Care Team Providers Care Field Ring Assembler Name Role Phone Unavailable Primary Care Provider [...]
[2024-04-24 11:29] LABS: Ferritin 113 ng/mL (10-122); TSH reflex Free T4 1.08 uIU/mL (0.32-4.0); Vitamin D 25-OH Total 41.6 ng/mL (>30)
[2024-04-24 11:36] LABS: Folate 12.3 ng/mL (> or = 4.0); Vitamin B12 649 pg/mL (200-900)
[2024-04-24 11:40] LABS: Anion Gap 9 (12-20)
[2024-04-24 11:49] LABS: Alanine Aminotransferase 13 U/L (0-31); Albumin Level 4.1 g/dL (3.5-5.0); Alkaline Phosphatase 51 U/L (39-117); Aspartate Amino Transferase 14 U/L (5-31); Bilirubin Total 0.6 mg/dL (0.0-1.0); Blood Urea Nitrogen 12 mg/dL (9-16); Calcium 9.3 mg/dL (8.4-10.2); Carbon Dioxide 28 mmol/L (22-29); Chloride 108 mmol/L (96-108); Cholesterol 146 mg/dL (<200); Estimated Glomerular Filt Rate > 60; Glucose Random 83 mg/dL (60-115); HDL Cholesterol 59 mg/dL (>40); Iron 108 mcg/dL (30-160); LDL Cholesterol Calculated 77 mg/dL (<100); Percent Iron Saturation 41 % (15-50); Potassium 3.9 mmol/L (3.3-5.1); Sodium 141 mmol/L (135-145); Total Iron Binding Capacity 261 mcg/dL (228-428); Total Protein 7.6 g/dL (6.5-8.0); Triglycerides 50 mg/dL (<150); Unsaturated Iron Binding 153 ug/dL
[2024-04-24 13:15] LABS: Insulin 3 uU/mL (2-29)
[2024-04-26 19:12] LABS: Zinc 73 mcg/dL (60-130)
[2024-04-27 18:18] LABS: Vitamin A 33 mcg/dL (38-98)
[2024-04-30 11:19] LABS: Vitamin B1 20 nmol/L (8-30)
== END 2024-04-24 09:27 | disposition home or self-care (01) ==
LOC: HO.LAB 09:26
PROVIDERS: PCP Internal Medicine; Visit Provider Physician Assistant Surgical
DX: Z98.84 Bariatric surgery status (principal)
CPT/HCPCS: 36415; 80053; 80061; 82306; 82607; 82728; 82746; 83036; 83525; 83540; 84425; 84443; 84590; 84630; 85025; 86140

== ENCOUNTER 2024-05-08 09:14 | Outpatient (AMB) | payer OTHER, SELFPAY ==
--- NOTE | 2024-05-08 09:05 | A.OFFVIS_ITS ---
VS Expanded 05/08/24 09:11 Height 5 ft 3 in Weight 115 lb BMI 20.4 Intake Visit Reasons: TELEPHONE PO LSG 10/27/23 Photolith Operator Name: Brandy Stanley [id number] Allergies No Known Allergies Allergy (Verified 10/04/23 09:21) Medication List - Last Reconciled 05/08/24 by JOSE Middleton clotrimazole 1% 1 appl topical BID simethicone (Gas Relief (simethicone)) 80 mg PO BID-QID PRN HPI Comments Details: This?is a 34?yo female who is s/p LSG 10/27/2023. Presents for 6 month post op visit. Weight at last visit on 03/22/2024 was 116 pounds with a BMI of 20.5, weight today is 115 pounds, representing a 1 pound weight loss with a BMI today of 20.4.? No complaints of nausea, emesis, abdominal pain or reflux, or constipation. Pt notes today she has a condition that makes it appear lower than normal, ca n't remember what it's called , no history of bleeding issues. Present meal plan includes: Premier premade shake x 1 1 Celebrate bar 1 meal solid protein with veg- 4 forks each in between meals may have some fruit- orange or banana taking MVI with 18mg iron Exercise routine includes: gym, weight training for arms and legs, walks on treadmill Pt reports noticing some excess skin of abdomen. She sometimes develops some rashes in skin folds. Using clotrimazole ointment which does not completely resolve the problem. [facility] Medical History (Updated 03/22/24 @ 09:15 by JOSE Middleton) Pre-op evaluation Constipation Cholelithiasis H. pylori infection Morbid obesity Abnormal EKG BMI 35.0-35.9,adult Hx of thyroid nodule Anemia Cardiomegaly Hyperlipidemia Hypertension Non-insulin dependent type 2 diabetes mellitus Obesity Surgical History (Updated 11/05/23 @ 00:01 by Rajat Mosquera) Hx of laparoscopic partial gastrectomy History of esophagogastroduodenoscopy (EGD) Hx laparoscopic cholecystectomy Hx of dilation and curettage Family History Mother Diabetes Hypertension High cholesterol Daughter No problems noted. Daughter No problems noted. Social History Household Members: Spouse Housing: House Are you a primary healthcare science specialist to a significant other at home: No Do you presently have visiting nurse or other home services: No Alcohol intake: current Alcohol intake frequency: holidays/special occasions only Patient Tobacco Use Status: Never used Tobacco service: No Telehealth Telehealth Telehealth Platform: Telephone Location of provider rendering services: other Location of patient: address on file Patient Identification confirmed using: Name, : Yes Telehealth method: voice only Patient verbally consented to treatment: Yes Patient verbally consented to billing insurance company: Yes Patient informed of any privacy concerns related to visit: Yes Minutes spent on Phone/Video with Pt.: 30 Assessment & Plan Assessment & Plan (1) S/P laparoscopic sleeve gastrectomy: Code(s): Z98.84 - Bariatric surgery status Category: Surgical Plan Labs reviewed, vit A supplement sent to pharmacy, take MVI with 45mg iron instead of 18mg. Pt would like maintenance meal plan- can introduce 2 forks healthy carb in place of 2 forks veg at mealtime. Provided my cell phone # so pt can text me in 1-2 weeks with updated weight measurement and can further adjust plan if needed. Continue clotrimazole ointment for rashes of excess skin. Pt is interested in skin removal surgery; her current insurance requires her to be 18mo postop. RTC 3 months, recheck vit A levels and CBC at that time. Medications: New vitamin A palmitate 10,000 units PO DAILY 90 caps 3RF
[2024-05-08 09:11] VITALS: BMI 20.4
--- OUTSIDE RECORDS SUMMARY | 2024-05-08 09:52 | XMS_ITS | Clinical Summary ---
Author Organization [employer] Address [address] [facility] [address] [place] [address] Care Team Providers Care Fire Extinguisher Mechanic Name Role Phone Unavailable Primary Care Provider [...]
--- OUTSIDE RECORDS SUMMARY | 2024-05-08 09:52 | XMS_ITS | Encounter Summary ---
Author Organization [facility] [facility] Address [address] [facility] [address] [place] [address] Care Team Providers Care Associate Professor Of Management Name Role Phone Unavailable Primary Care Provider [...]
== END 2024-05-08 09:40 | disposition home or self-care (01) ==
LOC: HO.HBS 09:14
PROVIDERS: PCP Internal Medicine; Visit Provider Physician Assistant Surgical
DX: Z71.3 Dietary counseling and surveillance (principal); Z98.84 Bariatric surgery status
CPT/HCPCS: 99214; G2211

== ENCOUNTER 2024-08-01 12:00 | Outpatient (AMB) | payer OTHER, SELFPAY ==
--- NOTE | 2024-08-01 12:02 | A.OFFVIS_ITS ---
VS Expanded 08/01/24 12:11 Height 5 ft 3 in Weight 117 lb BMI 20.7 Intake Visit Reasons: TELEPHONE PO LSG 10/27/23 Furniture Builder Name: [id number] Parminder Allergies No Known Allergies Allergy (Verified 10/04/23 09:21) Medication List - Last Reconciled 08/01/24 by JOSE Middleton clotrimazole 1% 1 appl topical BID simethicone (Gas Relief (simethicone)) 80 mg PO BID-QID PRN vitamin A palmitate 10,000 units PO DAILY HPI Comments Details: This?is a?34?yo F who is s/p LSG 10/27/2023. Presents for 9mo post op visit. Weight at last visit on 05/08/2024 was 115 pounds with a BMI of 20.4, weight today is 117 pounds, representing a 2 pound weight gain with a BMI today of 20.7.? No complaints of nausea, emesis, abdominal pain or reflux, or constipation. Pt is happy at current weight. Added in healthy carb at dinner which helped her weight stabilize. Present meal plan includes: Premier premade shake x 1 1 Celebrate bar 1 meal solid protein with veg- 4 forks each or 2f healthy carb 2f veg in between meals may have some fruit- orange or banana taking MVI Exercise routine includes: gym, weight training for arms and legs, walks on treadmill Pt reports noticing some excess skin of abdomen. She sometimes develops some rashes in skin folds. Using clotrimazole ointment which does not completely resolve the problem. Pt notices moisture in skin folds and has to clean more miah quently to prevent odor. She has to use a binder to hold excess skin in place to prevent discomfort. Certain activities of daily living are more difficult due to the excess skin, including bending over where the skin gets in the way. [facility] Medical History (Updated 03/22/24 @ 09:15 by JOSE Middleton) Pre-op evaluation Constipation Cholelithiasis H. pylori infection Morbid obesity Abnormal EKG BMI 35.0-35.9,adult Hx of thyroid nodule Anemia Cardiomegaly Hyperlipidemia Hypertension Non-insulin dependent type 2 diabetes mellitus Obesity Surgical History (Updated 11/05/23 @ 00:01 by Background Daemon) Hx of laparoscopic partial gastrectomy History of esophagogastroduodenoscopy (EGD) Hx laparoscopic cholecystectomy Hx of dilation and curettage Family History Mother Diabetes Hypertension High cholesterol Daughter No problems noted. Daughter No problems noted. Social History Household Members: Spouse Housing: House Are you a primary palliative care specialist to a significant other at home: No Do you presently have visiting nurse or other home services: No Alcohol intake: current Alcohol intake frequency: holidays/special occasions only Patient Tobacco Use Status: Never used Tobacco service: No Telehealth Telehealth Telehealth Platform: Telephone Location of provider rendering services: practice address Location of patient: address on file Patient Identification confirmed using: Name, : Yes Telehealth method: voice only Patient verbally consented to treatment: Yes Patient verbally consented to billing insurance company: Yes Patient informed of any privacy concerns related to visit: Yes Minutes spent on Phone/Video with Pt.: 16 Assessment & Plan Assessment & Plan (1) S/P laparoscopic sleeve gastrectomy: Code(s): Z98.84 - Bariatric surgery status Category: Surgical (2) Excess skin: Code(s): L98.7 - Excessive and redundant skin and subcutaneous tissue Category: Medical Plan Continue clotrimazole ointment for rashes of excess skin. Pt is interested in skin removal surgery; her current insurance requires her to be 18mo postop. She is doing very well maintaining a healthy weight. Continue current meal plan and exercise regimen. RTC 3mo for annual.
[2024-08-01 12:11] VITALS: BMI 20.7
--- OUTSIDE RECORDS SUMMARY | 2024-08-01 13:50 | XMS_ITS | Encounter Summary ---
Author Organization [facility] Address [address] [facility] [address] [place] [address] Care Team Providers Care Chief Information Security Officer Name Role Phone Unavailable Primary Care Provider Unavailabl e Encounter Details Date Type Department Care Team (Latest Contact Info) Description 07/21/2018 Abstract [facility] CONVERSIONS Dental, Provider, DDS Social History Tobacco [...]
== END 2024-08-01 12:31 | disposition home or self-care (01) ==
LOC: HO.HBS 12:26
PROVIDERS: PCP Internal Medicine; Visit Provider Physician Assistant Surgical
DX: L98.7 Excessive and redundant skin and subcutaneous tissue (principal); Z98.84 Bariatric surgery status
CPT/HCPCS: 99214; G2211

== ENCOUNTER 2024-11-08 10:29 | Outpatient (AMB) | payer OTHER, SELFPAY ==
--- NOTE | 2024-11-08 10:32 | MHC.OFFVISWM ---
VS Expanded 11/08/24 10:39 BP 121/84 Blood Pressure Location Rt brachial Blood Pressure Position Sitting Pulse 69 Pulse Source Pulse Oximeter Temp 97.9 F Temperature Source Temporal Artery Scan Pulse Oximetry 100 Oxygen Delivery Method Room Air Height 5 ft 3 in Weight 120 lb 12.8 oz BMI 21.4 Body Fat % 20.5 Body Fat Mass 24.6 Fat Free Mass 96.0 Visceral Fat Rating 2.0 Body Water % 56.9 Body Water Mass 68.6 Muscle Mass/Score 91.0 Basal Metabolic Rate/Score 1,288 Intake Visit Reasons: (OV) PO LSG 10/27/23 Servomechanism Assembler Required: Yes Servomechanism Assembler Name: Brandy Roberts [id number] Information Interpreted: clinical only Allergies No Known Allergies Allergy (Verified 11/08/24 10:35) Medication List - Last Reconciled 11/08/24 by JOSE Middleton clotrimazole 1% 1 appl topical BID fluconazole 150 mg PO QWEEK 2 doses simethicone (Gas Relief (simethicone)) 80 mg PO BID-QID PRN vitamin A palmitate 10,000 units PO DAILY HPI Comments Details: This?is a?34?yo F who is s/p LSG 10/27/2023. Presents for 1y post op visit. Weight at last visit on 08/01/2024 was 117 pounds. Weight today is 120.8 pounds, representing a 3.8 pound weight gain with a BMI today of 21.4.? No complaints of nausea, emesis, abdominal pain or reflux, or constipation. Pt is happy at current weight. Added in healthy carb at dinner which helped her weight stabilize. Present meal plan includes: Premier premade shake x 1 1 Celebrate bar 1 meal solid protein with veg- 4 forks each or 2f healthy carb 2f veg in between meals may have some fruit- orange or banana taking MVI Exercise routine includes: gym, weight training for arms and legs, walks on treadmill Pt reports noticing some excess skin of abdomen. She sometimes develops some rashes in skin folds. Using clotrimazole ointment which does not completely resolve the problem. Pt notices moisture in skin folds and has to clean more frequently to prevent odor. She has to use a binder to hold excess skin in place to prevent discomfort. Certain activities of daily living are more difficult due to the excess skin, including bending over where the skin gets in the way. Have you been diagnosed with reflux (GERD)? Score 0-5: 0=no symptoms, 1=noticeable but not bothersome (slight or occasional), 2=noticeable, bothersome but not daily, 3=bothersome and daily, 4=affects daily activities, 5=incapacitating, unable to do daily activities How bad is the heartburn: 0 Heartburn when lying down: 0 Heartburn when standing up: 0 Heartburn after meals: 0 Does heartburn change your diet: 0 Does heartburn wake you up from sleep: 0 Do you have difficulty swallowin Do you have pain with swallowin If you take medication for reflux, does this affect your daily life: 0 Total score: 0 PFSH Medical History (Updated 03/22/24 @ 09:15 by JOSE Middleton) Pre-op evaluation Constipation Cholelithiasis H. pylori infection Morbid obesity Abnormal EKG BMI 35.0-35.9,adult Hx of thyroid nodule Anemia Cardiomegaly Hyperlipidemia Hypertension Non-insulin dependent type 2 diabetes mellitus Obesity Surgical History Hx of laparoscopic partial gastrectomy History of esophagogastroduodenoscopy (EGD) Hx laparoscopic cholecystectomy Hx of dilation and curettage Family History Mother Diabetes Hypertension High cholesterol Daughter No problems noted. Daughter No problems noted. Social History Household Members: Spouse Housing: House Are you a primary home health care provider to a significant other at home: No Do you presently have visiting nurse or other home services: No Alcohol intake: current Alcohol intake frequency: holidays/special occasions only Patient Tobacco Use Status: Never used Tobacco service: No Physical Exam Const General: cooperative, comfortable and no acute distress Orientation/consciousness: patient oriented x3 GI Other: soft, nontender, nondistended, incisions well healed, no hernia, no masses Grade II pannus Neuro General: patient oriented x3 Assessment & Plan Assessment & Plan (1) S/P laparoscopic sleeve gastrectomy: Code(s): Z98.84 - Bariatric surgery status Category: Surgical (2) Excess skin: Code(s): L98.7 - Excessive and redundant skin and subcutaneous tissue Category: Medical Plan Continue clotrimazole ointment for rashes of excess skin. Will trial PO antifungal for persistent rash. Pt is interested in skin removal surgery; her current insurance requires her to be 18mo postop. She may be interested in a plastics consult for additional intervention above what insurance would cover. She is doing very well maintaining a healthy weight. Continue current meal plan and exercise regimen. Annual labs ordered. RTC 3mo for phone visit. Orders: Orders C Reactive Protein Today Z98.84 - Bariatric surgery status Vitamin B1 Today Z98.84 - Bariatric surgery status Vitamin A Today Z98.84 - Bariatric surgery status Vitamin B12 and Folate Today Z98.84 - Bariatric surgery status Lipid Panel Today Z98.84 - Bariatric surgery status IRON PROFILE Today Z98.84 - Bariatric surgery status Vitamin D 25-OH Total Today Z98.84 - Bariatric surgery status Ferritin Today Z98.84 - Bariatric surgery status TSH reflex Free T4 Today Z98.84 - Bariatric surgery status Zinc Today Z98.84 - Bariatric surgery status Comprehensive Met. Panel Today Z98.84 - Bariatric surgery status Complete Blood Count Auto Diff Today Z98.84 - Bariatric surgery status Hemoglobin A1c Today Z98.84 - Bariatric surgery status Insulin Today Z98.84 - Bariatric surgery status Medications: New fluconazole 150 mg PO QWEEK 2 tabs 0RF 2 doses
[2024-11-08 10:39] VITALS: BP 121/84; PULSE 69; TEMP 36.6; O2SAT 100; BMI 21.4
--- OUTSIDE RECORDS SUMMARY | 2024-11-08 12:46 | XMS_ITS | Clinical Summary ---
Author Organization [employer] Address [address] [facility] [address] [place] [address] Care Team Providers Care Hull Grinder Name Role Phone Unavailable Primary Care Provider [...] Date Last Done Comments Depression Screening 1988 Disability Screening 1988 Alcohol/Substance Use Screening 2000 Tobacco Screening 2000 Family Planning (PISQ) 04/30/2003 HPV Vaccines (1 - 3-dose series) 04/30/2003 DTaP/Tdap/Td Vaccines (1 - Tdap) 04/30/2007 Hepatitis B Vaccines (1 of 3 - 19+ 3-dose series) 04/30/2007 Pap Smear 2009 Cervical Cancer Screening 2018 HPV/Cotest 2018 COVID-19 Vaccine (1 - 2023-2 5 season) 2024 Influenza Vaccine (#1) 2024 Zoster Vaccines (1 of 2) 2038 RSV [...] patient's age to complete this topic Meningococcal B Vaccine Aged Out No l onger eligible based on patient's age to complete this topic Meningococcal Vaccine Aged Out No coy angel eligible based on patient's age to complete this topic Pneumococcal Vaccine: Pediat rics (0 to 5 Years) and At-Risk Patients (6 to 49) Years Aged Out No longer eligible b ased on patient's age to complete this topic RSV under 20 months Aged Out No longe r eligible based on patient's age to complete this topic Rotavirus Vaccines Aged Out No longer eligible based on patient's age to complete this topic
--- OUTSIDE RECORDS SUMMARY | 2024-11-08 12:46 | XMS_ITS | Encounter Summary ---
Author Organization [employer] [facility] Address [address] [facility] 7t [place] [address] Care Team Providers Care Power Mule Operator Name Role Phone Unavailable Primary Care Provider Unavailabl e Encounter Details Date Type Department Care Team (Latest Contact Info) Description 07/21/2018 Abstract [facility] CONVERSIONS Dental, Provider, DDS Social History Tobacco [...]
== END 2024-11-08 11:03 | disposition home or self-care (01) ==
LOC: HO.HBS 10:30
PROVIDERS: PCP Internal Medicine; Visit Provider Physician Assistant Surgical
DX: L98.7 Excessive and redundant skin and subcutaneous tissue (principal); Z98.84 Bariatric surgery status
CPT/HCPCS: 99214; G2211

== ENCOUNTER → 2024-11-08 10:29 | Outpatient (BNVA) | payer OTHER, SELFPAY | PROVIDERS: PCP Internal Medicine; Visit Provider Physician Assistant Surgical | DX: L98.7 Excessive and redundant skin and subcutaneous tissue (principal); Z98.84 Bariatric surgery status | CPT/HCPCS: 99212 ==

== ENCOUNTER 2024-11-16 08:10 | Outpatient (REF) | payer OTHER, SELFPAY ==
[2024-11-16 08:35] LABS: MANUAL DIFF FLAG NO
--- OUTSIDE RECORDS SUMMARY | 2024-11-16 08:46 | XMS_ITS | Clinical Summary ---
Author Organization [employer] Address [address] [facility] [address] [place] [address] Care Team Providers Care Habilitation Assistant Name Role Phone Unavailable Primary Care Provider [...]
--- OUTSIDE RECORDS SUMMARY | 2024-11-16 08:46 | XMS_ITS | Encounter Summary ---
Author Organization [employer] [facility] Address [address] [facility] [address] [place] [address] Care Team Providers Care Die Inspector Name Role Phone Unavailable Primary Care Provider Unavailabl e Encounter Details Date Type Department Care Team (Latest Contact Info) Description 07/21/2018 Abstract [facility] CONVERSIONS Dental, Provider, DDS Social History Tobacco [...]
[2024-11-16 08:56] LABS: Hematocrit 34.4 % (37.0-47.0); Hemoglobin 11.0 g/dl (12.0-16.0); Imm Gran Abs Auto 0.01 X10*3/uL (0.00-0.03); Imm Gran Pct Auto 0.2 % (0.0-0.4); Lymphocytes Absolute Auto 1.4 X10*3/uL (1.2-4.9); Mean Corpuscular HGB Conc 32.0 g/dl (31.0-35.0); Mean Corpuscular Hemoglobin 22.3 pg (27.0-33.0); Mean Corpuscular Volume 69.8 fL (80.0-98.0); NRBC Abs Auto 0.000 X10*3/uL (0.0-0.012); NRBC Pct Auto 0.0 /100WBC (0.0-0.2); Platelet Count 266 X10*3/uL (160-400); Red Blood Count 4.93 X10*6/uL (4.20-5.50); White Blood Count 4.0 X10*3/uL (4.8-10.8)
[2024-11-16 09:27] LABS: Hemoglobin A1C 114.4716 umol/L; Total Hemoglobin (HGBA1C) 2893.6463 umol/L
[2024-11-16 09:40] LABS: Alanine Aminotransferase 15 U/L (0-31); Albumin Level 4.5 g/dL (3.5-5.0); Alkaline Phosphatase 48 U/L (39-117); Anion Gap 6 (12-20); Aspartate Amino Transferase 17 U/L (5-31); Blood Urea Nitrogen 12 mg/dL (9-16); Calcium 9.3 mg/dL (8.4-10.2); Carbon Dioxide 30 mmol/L (22-29); Chloride 108 mmol/L (96-108); Cholesterol 152 mg/dL (<200); Estimated Glomerular Filt Rate > 60; HDL Cholesterol 62 mg/dL (>40); Iron 92 mcg/dL (30-160); Percent Iron Saturation 36 % (15-50); Potassium 4.4 mmol/L (3.3-5.1); Sodium 140 mmol/L (135-145); Total Iron Binding Capacity 259 mcg/dL (228-428); Total Protein 7.2 g/dL (6.5-8.0); Triglycerides 46 mg/dL (<150); Unsaturated Iron Binding 167 ug/dL
[2024-11-16 10:08] LABS: Ferritin 91 ng/mL (10-122)
[2024-11-16 10:10] LABS: Folate 8.4 ng/mL (> or = 4.0); Vitamin B12 400 pg/mL (200-900)
== END 2024-11-16 08:11 | disposition home or self-care (01) ==
LOC: HO.LAB 08:10
PROVIDERS: Visit Provider Physician Assistant Surgical
DX: Z98.84 Bariatric surgery status (principal)
CPT/HCPCS: 36415; 80053; 80061; 82306; 82607; 82728; 82746; 83036; 83525; 83540; 84425; 84443; 84590; 84630; 85025; 86140

== ENCOUNTER 2025-01-29 12:28 | Outpatient (AMB) | payer OTHER, SELFPAY ==
--- OUTSIDE RECORDS SUMMARY | 2025-01-26 23:59 | XMS_ITS | Continuity of Care Document ---
Author Organization [facility] Address [address] [place] [address]- Care Team Providers Care Vending Machine Operator Name Role Phone Teofilo BROOKS, Sabrina Bedoya Primary Care Physici an [place] [facility] [place] 12/27/24 - 01/26/25 [facility]/[address] [address]- Encounter Type: Triage Allergies, Adverse Reactions, Alerts No Known Allergies Immunizations Given and Recorded Vaccine Date Status Refusal Reason tetanus/diphtheria/pertussis, acel(Tdap) 06/23/21 Given tetanus/diphtheria/pertussis, acel(Tdap) 1 12/08/12 Given SARS-CoV-2 (COVID-19) mRNA BNT-162b2 vac 03/10/21 Given SARS-CoV-2 (COVID-19) mRNA-1273 vaccine 06/06/20 R ecorded SARS-CoV-2 (COVID-19) mRNA-1273 vaccine 05/10/20 R ecorded influenza virus vaccine, inactivated 03/04/20 Give n influenza virus vaccine, inactivated 12/29/12 Give n influenza virus vaccine, inactivated 2 06/01/11 Gi jorgito Human Papillomavirus Vaccine 09/03/14 Given Human Papillomavirus Vaccine 3 06/22/13 Given Human Papillomavirus Vaccine 4 03/03/13 Given tetanus-diphtheria toxoids (Td) 5 06/01/11 Given 1Result Comment: [12/08/2012] Citizen [place] VIS given to pt. 2Admin Note: vis 09/23/2010 3Result Comment: [06/22/2013] Ordered by DO LETTY Steinberg STOCK 4Result Comment: [03/03/2013] Citizen [place] VIS Given. 5Admin Note: VIS 07/15/2006 Given Medications Alcohol Pads See Instructions, # 100 each, Refills 3, Tot. Refills 3, Maintenance, T2DM No insulin (E11.9) Use as directed once daily, 06/18/22 5:32:00 PM EDT, Compound, 159, cm, 05/21/22 8:36:00 EDT, Height, 85, kg, 05/21/22 8:40:00 EDT, Dry Weight Start Date: 06/18/22 Status: Ordered Medication Dispense Status: Completed Quantity: 100.0 Unit: each Total Allowed Fills: 4 Fills Dispensed: 0 [place] Saline Mist 0.65% nasal spray 2 sprays, Nares, Both, 4 times a day, # 1 each, 0 Refills, Maintenance, 03/23/24 12:51:00 PM EST, [facility] #[id number], Partial fill upon patient request if the prescription is for a schedule II opioid drug., 2 sprays Nares, Both 4 times a day, 159, cm, 03/23/24 12:25:00 EST, Height, 72.72, kg, 08/17/23 16:43:00 EDT, Dry Weight Start Date: 03/23/24 Status: Ordered Medication Dispense Status: Completed Quantity: 1.0 Unit: each Total Allowed Fills: 1 Fills Dispensed: 0 Indications: Acute sinusitis, unspecified; benzoyl peroxide 5% topical gel 1 application, Topically, Daily in AM, okay to pay OOP - please contact prescriber if > $15 OOP or if cheaper alternatives available, # 45 Gm, 1 Refills, Maintenance, 09/12/24 7:31:00 PM EDT, Gel, [facility], Partial fill upon patient request if the prescription is for a schedule II opioid drug., 1 application Topically Daily in AM,Instr:okay to pay OOP - please contact prescriber if > $15 OOP or if cheaper alternatives available, 159, cm, 09/12/24 9:55:00 EDT, Height, 55.6, kg, 09/12/24 9:55:00 EDT, Dry Weight Start Date: 09/12/24 Status: Ordered Medication Dispense Status: Completed Quantity: 45.0 Unit: g Total Allowed Fills: 2 Fills Dispensed: 0 diclofenac 1% topical gel See Instructions, PRN chest wall pain, applica 1-2 gramos al pecho en los lugars donde sientes dolor dos veces al connie cuando lo necesita., # 100 Gm, 1 Refills, Maintenance, 05/21/22 9:42:00 AM EDT, Gel, [facility] #[id number], Partial fill upon patient request if the prescription is for a schedule II opioid drug., 159, cm, 05/21/22 8:36:00 EDT, Height, 85, kg, 05/21/22 8:40:00 EDT, Dry Weight Start Date: 05/21/22 Status: Ordered Medication Dispense Status: Completed Quantity: 100.0 Unit: g Total Allowed Fills: 2 Fills Dispensed: 0 Differin 0.1% topical cream 1 application, Topically, Daily at bedtime, okay to pay OOP - please contact prescriber if > $15OOP or if cheaper alternatives available, # 45 Gm, 1 Refills, Maintenance, 09/12/24 7:31:00 PM EDT, Cream, [facility], Partial fill upon patient request if the prescription is for a schedule II opioid drug., 1 application Topically Daily at bedtime,Instr:okay to pay OOP - please contact prescriber if > $15 OOP or if cheaper alternatives available, 159, cm, 09/12/24 9:55:00 EDT, Height, 55.6, kg, 09/12/24 9:55:00 EDT, Dry Weight Start Date: 09/12/24 Status: Ordered Medication Dispense Status: Completed Quantity: 45.0 Unit: g Total Allowed Fills: 2 Fills Dispensed: 0 fluticasone 50 mcg/inh nasal spray 1 sprays = 50 mcg, Nares, Both, 2 times a day, # 16 Gm, 0 Refills, Maintenance, 03/23/24 12:51:00 PMEST, [place], [facility] #[id number], Partial fill upon patient request if the prescription is for a schedule II opioid drug., 1 sprays Nares, Both 2 times a day, 159, cm, 03/23/24 12:25:00 EST, Height, 72.72, kg, 08/17/23 16:43:00 EDT, Dry Weight Start Date: 03/23/24 Status: Ordered Medication Dispense Status: Completed Quantity: 16.0 Unit: g Total Allowed Fills: 1 Fills Dispensed: 0 Indications: Acute sinusitis, unspecified; FREESTYLE LITE BLOOD GLUCOSE SYSTEM FREESTYLE LITE BLOOD GLUCOSE SYSTEM, See Instructions, # 1 each, 0 Refills, Maintenance, USE DIRECTED TO TEST BLOOD SUGARS, 06/09/22 11:42:00 AM EDT, 159, cm, 05/21/22 8:36:00 EDT, Height, 85, kg, 05/21/22 8:40:00 EDT, Dry Weight Start Date: 06/09/22 Status: Ordered Medication Dispense Status: Completed Quantity: 1.0 Unit: each Total Allowed Fills: 1 Fills Dispensed: 0 FREESTYLE LITE BLOOD GLUCSTR 50S FREESTYLE LITE BLOOD GLUCSTR 50S, See Instructions, # 200 Unknown, 0 Refills, Maintenance, CHECK BLOOD SUGAR FOUR TIMES DAILY DURING THE , 05/06/22 6:51:00 PM EST, 159, cm, 11/12/21 15:17:00 EDT, Height, 84.63, kg, 10/02/21 15:01:00 EDT, Dry Weight Start Date: 05/06/22 Status: Ordered Medication Dispense Status: Completed Quantity: 200.0 Unit: Unknown Total Allowed Fills: 1 Fills Dispensed: 0 Freestyle Lite Lancets See Instructions, # 100 each, Refills 1, Tot. Refills 1, Maintenance, use as directed for Type 2 Diabetes Mellitus, E11.9, testing once daily, 09/12/24 3:46:00 PM EDT, Compound, 159, cm, 09/12/24 9:55:00 EDT, Height, 55.6, kg, 09/12/24 9:55:00 EDT, Dry Weight Start Date: 09/12/24 Stop Date: 11/11/24 Status: Ordered Medication Dispense Status: Completed Quantity: 100.0 Unit: each Total Allowed Fills: 2 Fills Dispensed: 0 Freestyle Lite Test Strips See Instructions, # 100 each, Refills 3, Tot. Refills 3, Maintenance, use as directed for Type 2 Diabetes Mellitus, E11.9, testing once daily, 08/17/23 5:29:00 PM EDT, Compound, 159, cm, 08/17/23 16:43:00 EDT, Height, 72.72, kg, 08/17/23 16:43:00 EDT, Dry Weight Start Date: 08/17/23 Stop Date: 12/15/23 Status: Ordered Medication Dispense Status: Completed Quantity: 100.0 Unit: each Total Allowed Fills: 4 Fills Dispensed: 0 ibuprofen 100 mg/5 mL oral suspension 30 mL = 600 mg, By Mouth, Every 6 hours, PRN as needed for pain, # 240 mL, 1 Refills, Maintenance, 12/07/23 11:39:00 AM EDT, Suspension, [facility] #[id number], Partial fill upon patient request if the prescription is for a schedule II opioid drug., 159, cm, 12/07/23 10:12:00 EDT, Height, 72.72, kg, 08/17/23 16:43:00 EDT, Dry Weight Start Date: 12/07/23 Status: Ordered Medication Dispense Status: Completed Quantity: 240.0 Unit: mL Total Allowed Fills: 2 Fills Dispensed: 0 metFORMIN 500 mg oral tablet 1 tablet = 500 mg, By Mouth, Daily, # 90 tablet, 3 Refills, Maintenance, 08/17/23 5:26:00 PM EDT, Tablet, [facility] #[id number], Partial fill upon patient request if the prescription is for a schedule II opioid drug., 159, cm, 08/17/23 16:43:00 EDT, Height, 72.72, kg, 08/17/23 16:43:00 EDT, Dry Weight Start Date: 08/17/23 Status: Ordered Medication Dispense Status: Completed Quantity: 90.0 Unit: tablet Total Allowed Fills: 4 Fills Dispensed: 0 Mirena 52 mg intrauterine device 1 each = 52 mg, Intrauterine, Once, # 1 each, 0 Refills, Soft Stop, 12/07/23 10:45:00 AM EDT, [facility], Partial fill upon patient request if the prescription is for a schedule IIopioid drug., 159, cm, 12/07/23 10:12:00 EDT, Height, 72.72, kg, 08/17/23 16:43:00 EDT, Dry Weight Start Date: 12/07/23 Status: Ordered Medication Dispense Status: Completed Quantity: 1.0 Unit: each Total Allowed Fills: 1 Fills Dispensed: 0 Replens vaginal gel See Instructions, PRN for dry skin, 1 application intravaginally 2 times per week, # 47.2 Gm, 3 Refills, Maintenance, 01/13/23 9:53:00 AM EST, Gel, [facility] #[id number], Partial fill upon patient request if the prescription is for a schedule II opioid drug., 1 application intravaginally 2 times per week,PRN:for dry skin, 159, cm, 01/13/23 9:15:00 EST, Height, 91.36, kg, 01/13/23 9:15:00 EST, Dry Weight Start Date: 01/13/23 Status: Ordered Medication Dispense Status: Completed Quantity: 47.2 Unit: g Total Allowed Fills: 4 Fills Dispensed: 0 Retin-A 0.025% topical cream 1 application, Topically, Daily at bedtime, # 20 Gm, 0 Refills, Maintenance, 09/13/24 4:38:00 PM EDT, Cream, [facility], Partial fill upon patient request if the prescription is for a schedule II opioid drug., 1 application Topically Daily at bedtime, 159, cm, 09/12/24 9:55:00 EDT, Height, 55.6, kg, 09/12/24 9:55:00 EDT, Dry Weight Start Date: 09/13/24 Status: Ordered Medication Dispense Status: Completed Quantity: 20.0 Unit: g Total Allowed Fills: 1 Fills Dispensed: 0 Sudafed 12-Hour 120 mg oral tablet, extended release 1 tablet = 120 mg, By Mouth, Every 12 hours, PRN as needed for cold symptoms, # 20 tablet, 0 Refills, Maintenance, 03/23/24 12:51:00 PM EST, ER Tablet, [id number], Partial fill upon patient request if the prescription is for a schedule II opioid drug., 159, cm, 03/23/24 12:25:00 EST, Height, 72.72, kg, 08/17/23 16:43:00 EDT, Dry Weight Start Date: 03/23/24 Status: Ordered Medication Dispense Status: Completed Quantity: 20.0 Unit: tablet Total Allowed Fills: 1 Fills Dispensed: 0 Indications: Acute sinusitis, unspecified; Problem List Condition Confirmation Course Effective Dates Status Health St atus Informant Alpha thalassemia trait Confirmed Active Bradford's thyroiditis 1 Confirmed Active Uses Citizen Of [place] as primary spoken language Confirmed Active Sickle cell trait Confirmed Active Type 2 diabetes mellitus without complication 2 Confirmed Active 1plan for US q 2 years 2dx 04/24/20. A1c 6.6 at time of dx. Social History Social History Type Response Smoking Status Never (less than 100 in lifetime); Tobacco user in household: No entered on: 02/20/20 Sexual Orientation Self described orien tation: ; Straight or heterosexual Sex Sex Representation Female (finding) Patient Care team information Care Team Personnel Name: Teofilo BROOKS, Sabrina Bedoya Position: [facility] PCO Associate Professional Member Role: PCP Address: [address] [place] [address] Telecom: Care Team Related Persons Name: ELVIRA CONTRERAS Name: DOV ISSA Insurance Providers Guarantor name: ZAC SANDERS Health Plan Information #: 1 Payer: [employer] [facility] [place] Payer Identifier: KLEBER Member Number: [id number] Group Number: [id number] Subscriber Identifier: KLEBER Relationship to Subscriber: self Coverage Type: Medicaid (Managed Care) Coverage Verification Date: KLEBER Telecom: KLEBER Address: NA
--- NOTE | 2025-01-29 12:43 | A.OFFVIS_ITS ---
VS Expanded 01/29/25 12:47 Height 5 ft 3 in Weight 122 lb BMI 21.6 Intake Visit Reasons: TV PO LSG 10/27/23 Outsole Compressor Required: Yes Outsole Compressor Name: Brandy Watson Information Interpreted: clinical only Allergies No Known Allergies Allergy (Verified 11/08/24 10:35) Medication List - Last Reconciled 01/29/25 by JOSE Middleton cholecalciferol (vitamin D3) 50 mcg PO DAILY clotrimazole 1% 1 appl topical BID fluconazole 150 mg PO QWEEK 2 doses simethicone (Gas Relief (simethicone)) 80 mg PO BID-QID PRN vitamin A palmitate 10,000 units PO DAILY HPI Comments Details: This is a 34 yo F who is s/p LSG 10/27/2023. Presents for 1y 3 mo post op visit. Weight at last visit on 11/08/2024 was 120.8 pounds. Weight today is 122 pounds, representing a 1.2 pound weight gain with a BMI today of 21.6. No complaints of nausea, emesis, abdominal pain or reflux, or constipation. Pt is happy at current weight. Added in healthy carb at dinner which helped her weight stabilize. At last visit pt had requested a consult with plastic surgery as she was potentially interested in additional cosmetic procedures. However Dr Khan's office told her she did not have enough excess skin to qualify. Present meal plan includes: Premier premade shake x 1 1 Celebrate bar 1 meal solid protein with veg- 4 forks each or 2f healthy carb 2f veg in between meals may have some fruit- orange or banana taking MVI Exercise routine includes: gym, weight training for arms and legs, walks on treadmill Pt reports noticing some excess skin of abdomen. She sometimes develops some rashes in skin folds. Using clotrimazole ointment which does not completely resolve the problem. Pt notices moisture in skin folds and has to clean more frequently to prevent odor. She has to use a binder to hold excess skin in place to prevent discomfort. Certain activities of daily living are more difficult due to the excess skin, including bending over where the skin gets in the way. She has tried one course of PO antifungal treatment which did not resolve her issue. [facility] Medical History (Updated 03/22/24 @ 09:15 by JOSE Middleton) Pre-op evaluation Constipation Cholelithiasis H. pylori infection Morbid obesity Abnormal EKG BMI 35.0-35.9,adult Hx of thyroid nodule Anemia Cardiomegaly Hyperlipidemia Hypertension Non-insulin dependent type 2 diabetes mellitus Obesity Surgical History Hx of laparoscopic partial gastrectomy History of esophagogastroduodenoscopy (EGD) Hx laparoscopic cholecystectomy Hx of dilation and curettage Family History Mother Diabetes Hypertension High cholesterol Daughter No problems noted. Daughter No problems noted. Social History Household Members: Spouse Housing: House Are you a primary weekend caregiver to a significant other at home: No Do you presently have visiting nurse or other home services: No Alcohol intake: current Alcohol intake frequency: holidays/special occasions only Patient Tobacco Use Status: Never used Tobacco service: No Telehealth Telehealth Telehealth Platform: Telephone Location of provider rendering services: practice address Location of patient: address on file Patient Identification confirmed using: Name, : Yes Telehealth method: voice only Patient verbally consented to treatment: Yes Patient verbally consented to billing insurance company: Yes Patient informed of any privacy concerns related to visit: Yes Minutes spent on Phone/Video with Pt.: 12 Assessment & Plan Assessment & Plan (1) S/P laparoscopic sleeve gastrectomy: Code(s): Z98.84 - Bariatric surgery status Category: Surgical (2) Excess skin: Code(s): L98.7 - Excessive and redundant skin and subcutaneous tissue Category: Medical Plan Pt to continue above meal plan and exercise regimen. She is still interested in skin removal surgery. I told her we could try though our office. She will try another round of PO fluconazole for additional duration at higher dose. Continue clotrimazole ointment. She has done very well with weight loss, achieving healthy BMI and 38.4% TBWL. Medications: New fluconazole 200 mg PO .weekly 4 tabs 0RF Discontinued fluconazole Discontinued Reason: Doctor's Order 150 mg PO QWEEK 2 tabs 0RF
[2025-01-29 12:47] VITALS: BMI 21.6
--- OUTSIDE RECORDS SUMMARY | 2025-01-29 16:07 | XMS_ITS | Clinical Summary ---
Author Organization [address] [facility] Address [address] [place] [address] Phone Care Team Providers Care Preschool Head Teacher Name Role Phone Loretta Hamilton MD Primary Care Provider [phone] Allergies No known active allergies Medications No known medications Encounters Date Type Department Care Team Description 01/01/2025 10:30 AM EST Consult Plastic & Reconstructive Surgery [address] [id number] Alysa Bocanegra PA Skin laxity (Primary Dx) from Last 3 Months Social History Tobacco Use Types Packs/Day Years Used Date Smoking Tobacco: Never Smokeless Tobacco: Never Tobacco Cessation:Counseling Given: Not Answered Alcohol Use Standard Drinks/Week Comments Never 0 (1 standard drink = 0.6 oz pur e alcohol) Comments Unknown Sex and Gender Information Value Date Recorded Sex Assigned at Not on file Legal Sex Female 12:39 PM EST Gender Identity Not on file Sexual Orientation Not on file Obstetrics History Last Filed Vital Signs Vital Sign Reading Time Taken Comments Blood Pressure 121/74 01/01/2025 10:35 AM EST Pulse 72 01/01/2025 10:35 AM EST Temperature - - Respiratory Rate - - Oxygen Saturation - - Inhaled Oxygen Concentration - - Weight 56.4 kg (124 lb 6.4 oz) 01/01/2025 10:35 AM EST Height 163.2 cm (5' 4.25 ) 01/01/2025 10:[address] Body Mass Index 21.19 01/01/2025 10:35 AM EST Plan of Treatment Health Maintenance Due Date Last Done Comments Hepatitis B Vaccines (1 of 3 - 19+ 3-dose series) 04/30/2007 Cervical Cancer Screening: P ap Smear 2009 HPV Vaccines (1 - 3-dose SCD M series) 04/30/2015 Depression Screening 03/01/2024 COVID-19 Vaccine (4 - 2024-2 6 season) 2024 03/10/2021, 06/06/2020, 05/10/2020 Influenza Vaccine (#1) 2024 03/04/2020 HIV Screening 12/20/2024 Hepatitis C Screening 12/20/2024 Social Influencers of Health Screening 12/20/2024 DTaP,Tdap,and Td Vaccines (2 - Td or Tdap) 06/24/2031 06/23/2021 RSV Immunization Adult Patients (1 - 1-dose 75+ series) 04/30/2063 HIB Vaccines Aged Out No longer eligi ble based on patient's age to complete this topic Hepatitis A Vaccines Aged Out No long er eligible based on patient's age to complete this topic IPV Vaccines Aged Out No longer eligi ble based on patient's age to complete this topic MMR Vaccines Aged Out No longer eligi ble based on patient's age to complete this topic Meningococcal ACWY Vaccine Aged Out N o longer eligible based on patient's age to complete this topic Meningococcal B Vaccine Aged Out No l onger eligible based on patient's age to complete this topic Pneumococcal Vaccine: Pediatrics (0 to 5 Years) and At-Risk Patients (6 to 49 Years) Aged Out No longer eligible b ased on patient's age to complete this topic RSV Immunization Patients Under 20 months Aged Out No longer eligible b ased on patient's age to complete this topic Varicella Vaccines Aged Out No longer eligible based on patient's age to complete this topic Insurance [facility] MEDICAID ADVANTAGE Care Teams Preschool Head Teacher Relationship Specialty Start Date End Date Loretta Hamilton MD [address] [place] [address] PCP - General Internal Medicine 12/20/24
--- OUTSIDE RECORDS SUMMARY | 2025-01-29 16:08 | XMS_ITS | Encounter Summary ---
Author Organization [facility] [facility] Address [address] [facility] [address] [place] [address] Care Team Providers Care Tear Down Man Name Role Phone Unavailable Primary Care Provider Unavailabl e Encounter Details Date Type Department Care Team (Latest Contact Info) Description 07/21/2018 Abstract [facility] CONVERSIONS Dental, Provider, DDS Social History Tobacco [...]
--- OUTSIDE RECORDS SUMMARY | 2025-01-29 16:08 | XMS_ITS | Clinical Summary ---
Author Organization [email or web address] Address [address] [facility] [address] [place] [address] Care Team Providers Care Operations Advisor Name Role Phone Unavailable Primary Care Provider [...] 2018 HPV/Cotest 2018 COVID-19 Vaccine (1 - 2024-2 6 season) 2024 Influenza Vaccine (#1) 2024 Zoster [...]
== END 2025-01-29 13:01 | disposition home or self-care (01) ==
LOC: HO.HBS 12:28
PROVIDERS: PCP Internal Medicine; Visit Provider Physician Assistant Surgical
DX: L98.7 Excessive and redundant skin and subcutaneous tissue (principal); Z71.3 Dietary counseling and surveillance; Z90.3 Acquired absence of stomach [part of]; Z98.84 Bariatric surgery status
CPT/HCPCS: 98013